=== PATIENT | male | born 1945 | race Caucasian/White ===

== ENCOUNTER → 2016-10-18 | Day surgery (SDC) | payer OTHER, MEDICARE ==
[2016-10-09 09:42] VITALS: BMI 33.0
[~2016-10-18] VITALS: Ht 180.3 cm; Wt 106.8 kg
[~2016-10-18] MED LIST: ATOR-26 PO; ENOX120I SQ; GABA-113 PO; LIDOCAINE HCL 2% 2 ML VIAL (20MG/ML) ONE; LISI10TA PO; PROPOFOL IV EMULSION 10 MG/ML 20 ML VIAL IV ONE; TOPI100T20 PO; TYLOTC500 PO; WARF5TAB7 PO; WARF7.5T PO; [UNRECOGNIZED DRUG - CODE] PO
[2016-10-18 10:31] VITALS: Ht 180.3 cm; Wt 106.8 kg
[2016-10-18 10:34] VITALS: TEMP 36.6
--- NOTE | 2016-10-18 11:33 | Endo History and Physical ---
History & Physical Date of Service: Oct 18, 2016. Chief Complaint: HXOF COLON POLYPS Referring Physician: DR. LEE History of Present Illness History of multiple polyps. Rectal bleeding. Past Medical History Atrial Fibrillation, Diabetes Past Surgical History Hx Cardiac Surgery: Yes (CARDIAC ABLATION X2, CARDIAC CATH, STENT X2) Hx Internal Defibrillator: Yes (PLACED AND REMOVED) Hx Pacemaker: Yes (~10 YEARS AGO) Hx Abdominal Surgery: Yes (DOMINGA) Hx of Implantable Prosthesis: No Hx Post-Op Nausea and Vomiting: No Hx Cancer Surgery: No Hx Thoracic Surgery: No Hx Orthopedic: Yes (L5-S1 LAMINECTOMY, L4-5 HEMILAMINECTOMY, L5-S1 FUSION, LT KNEE SURGERY) Hx Urinary Tract Surgery: No Family History None Social History Smoking Status: Current Some Day Smoker Hx Substance Use: No Hx Alcohol Use: Yes (OCCASIONAL) Allergies Coded Allergies: Iodinated Diagnostic Agents (Verified Allergy, Mild, RASH, 10/09/16) Codeine (Verified Adverse Reaction, Intermediate, N/V, 10/09/16) Morphine (Verified Adverse Reaction, Intermediate, N/V, 10/09/16) Current Medications Reported Home Medications Medications Dose Route/Sig Max Daily Dose Days Date Category Lovenox (Enoxaparin Sodium) 120 Mg/0.8 Ml Inj 120 Mg SQ Q12H 10/18/16 Reported Jantoven (Warfarin Sodium) 5 Mg Tab 5 Mg PO HS 10/09/16 Reported Prinivil (Lisinopril) 10 Mg Tab 10 Mg PO QAM 10/09/16 Reported Neurontin (Gabapentin) 300 Mg Cap 300 Mg PO BID 05/22/14 Reported Tylenol (Acetaminophen) 500 Mg Tab 500-1,000 Mg PO PRN 09/24/13 Reported Topamax (Topiramate) 100 Mg Tab 100 Mg PO BID 04/04/13 Reported Lipitor (Atorvastatin Calcium) 80 Mg Tab 80 Mg PO HS 04/04/13 Reported Sertraline (Sertraline Hcl) 100 Mg Tab 100 Mg PO QAM 09/02/09 Reported Vital Signs Weight (Kilograms): 106.82 Height (Feet): 5 Height (Inches): 11 Date Time Temp Pulse Resp B/P Pulse Ox O2 Delivery O2 Flow Rate FiO2 10/18/16 10:34 36.6 75 18 130/80 97 Room Air Physical Exam General Appearance: WD/WN, no apparent distress Respiratory/Chest: Auscultation: breath sounds normal, no wheezing Cardiovascular: Heart Auscultation: RRR, no murmurs Abdomen: Inspection & Palpation: soft, no tenderness, guarding & rebound Assessment and Plan Colonoscopy today.
--- NOTE | 2016-10-18 12:36 | GI REPORT ---
Procedure Date: 10/18/2016 11:30 AM Procedure: Colonoscopy Indications: High risk colon cancer surveillance: Personal history of colonic polyps Medicines: Monitored Anesthesia Care Complications: No immediate complications. Estimated blood loss: None. Estimated Blood Loss: Estimated blood loss: none. Procedure: Pre-Anesthesia Assessment: - Prior to the procedure, a History and Physical was performed, and patient medications, allergies and sensitivities were reviewed. The patient's tolerance of previous anesthesia was reviewed. - ASA Grade Assessment: III - A patient with severe systemic disease. After I obtained informed consent, the scope was passed under direct vision. Throughout the procedure, the patient's blood pressure, pulse, and oxygen saturations were monitored continuously. The Scope was introduced through the anus and advanced to the terminal ileum, with identification of the appendiceal orifice and IC valve. The colonoscopy was performed without difficulty. The patient tolerated the procedure well. The quality of the bowel preparation was excellent. The bowel preparation used was split dose MIralax. Findings: A 4 mm polyp was found in the ascending colon. The polyp was sessile. The polyp was removed with a cold snare. Resection and retrieval were complete. A 3 mm polyp was found in the transverse colon. The polyp was sessile. The polyp was removed with a cold snare. Resection and retrieval were complete. A 2 mm polyp was found in the sigmoid colon. The polyp was sessile. The polyp was removed with a cold snare. Resection and retrieval were complete. Multiple diverticula were found in the entire colon. Verification of patient identification for the specimens was done by the physician and nurse using the patient's name, date and medical record number. Impression: - One 4 mm polyp in the ascending colon, removed with a cold snare. Resected and retrieved. - One 3 mm polyp in the transverse colon, removed with a cold snare. Resected and retrieved. - One 2 mm polyp in the sigmoid colon, removed with a cold snare. Resected and retrieved. - Diverticulosis in the entire examined colon. Recommendation: - Repeat colonoscopy in 3 years for surveillance based on pathology results. - Discharge patient to home (with escort). Zion Duke M.D. Zion Duke MD 10/18/2016 12:36:21 PM This report has been signed electronically. Note Initiated On: 10/18/2016 11:30 AM I attest to the content of the Intraoperative Record and orders documented therein, exceptions below
--- NOTE | 2016-10-18 12:39 | Discharge Instructions ---
Endoscopy Patient Instructions Date / Procedure(s) Performed Oct 18, 2016. Colonoscopy Allergy Information Coded Allergies: Iodinated Diagnostic Agents (Verified Allergy, Mild, RASH, 10/18/16) Codeine (Verified Adverse Reaction, Intermediate, N/V, 10/18/16) Morphine (Verified Adverse Reaction, Intermediate, N/V, 10/18/16) Discharge Date / Findings Oct 18, 2016. Colon polyps (3), diverticulosis Medication Instructions Stopped Medication(s): COUMADIN Restart Stopped Medication(s): Resume medications as well as anticoagulation today. Provider Instructions Activity Restrictions - No exercising or heavy lifting for 24 hours. - Do not drink alcohol the day of the procedure. - Do not drive a car or operate machinery until the day after the procedure. - Do not make any important decisions or sign important papers in 24 hours after the procedure. Following Day: - Return to full activity which may include returning to work/school. Diet Start your diet with liquids and light foods (jello, soup, juice, toast). Then eat your usual diet if not nauseated. Treatment For Common After Affects For mild abdominal pain, bloating, or excessive gas: - Rest - Eat lightly - Lie on right side Follow-Up Information Follow-up with DR. LEE as scheduled Anesthesia Information What You Should Know You have had a procedure that required some medicine to reduce anxiety and discomfort. This treatment is called moderate sedation. After receiving the treatment, you may be sleepy, but you will be able to breathe on your own. The effects of the treatment may last for several hours. Follow these instructions along with Activity/Diet recommendations noted above: * Do NOT do anything where dizziness or clumsiness would be dangerous. * Rest quietly at home today, then you can be up and about tomorrow. * Have a responsible person stay with you the rest of today. * You may have had an I.V. today. If so, you may take the dressing off later today. Recommendations Call your doctor if: * Trouble breathing * Continuous vomiting for more than 24 hours * Temperature above 101 degrees * Severe abdominal pain or bloating * Pain not relieved by pain medicine ordered * There is increased drainage or redness from any incision * A large amount of rectal bleeding greater than 2-3 tablespoons. (If you had a polyp/s removed or have hemorrhoids, a small amount of blood - from the rectum is to be expected.) * You have any unanswered questions or concerns. IN THE EVENT OF A SERIOUS EMERGENCY, GO TO THE NEAREST EMERGENCY ROOM Your discharge instructions were prepared by provider Zion Duke. Patient Instructions Signature Page Osorio Harmon Patient (or Guardian) Signature/Date: I have read and understand the instructions given to me by my caregivers. Caregiver/RN/Doctor Signature/Date: The above-named patient and/or guardian has received patient instructions on this date. + Original Patient Signature Page (only) stays with chart. Please make copy for patient.
[2016-10-18 12:57] VITALS: BP 138/99; PULSE 75; O2SAT 100
--- NOTE | 2016-10-18 13:04 | Anesthesiology Progress Note ---
Anesthesia Post Op Note Date & Time Oct 18, 2016 at 13:04 Vital Signs Pain Intensity: 0 Vital Signs Past 12 Hours Date Time Temp Pulse Resp B/P Pulse Ox O2 Delivery O2 Flow Rate FiO2 10/18/16 12:57 75 138/99 100 10/18/16 12:56 75 144/97 99 10/18/16 12:42 75 127/92 99 10/18/16 12:27 75 108/60 95 10/18/16 10:34 36.6 75 18 130/80 97 Room Air Notes Mental Status: alert / awake / arousable, participated in evaluation Pt Amnestic to Procedure: Yes Nausea / Vomiting: adequately controlled Pain: adequately controlled Airway Patency, RR, SpO2: stable & adequate BP & HR: stable & adequate Hydration State: stable & adequate Anesthetic Complications: no major complications apparent Patient was instructed to take his lisinopril as soon as he get home. He understands and agrees.
== END | disposition home or self-care (01) ==
LOC: C.GI 10:04
PROVIDERS: ATTEND Internal Medicine Gastroenterology
DX: Z12.11 Encounter for screening for malignant neoplasm of colon (principal); Z86.010 Personal history of colon polyps; D12.2 Benign neoplasm of ascending colon; D12.3 Benign neoplasm of transverse colon; K57.30 Diverticulosis of large intestine without perforation or abscess without bleeding; Z95.5 Presence of coronary angioplasty implant and graft; I48.91 Unspecified atrial fibrillation; F17.210 Nicotine dependence, cigarettes, uncomplicated; Z98.890 Other specified postprocedural states; Z91.041 Radiographic dye allergy status; Z88.5 Allergy status to narcotic agent

== ENCOUNTER 2016-10-24 15:49 | Inpatient (IN) | payer OTHER, MEDICARE ==
[~2016-10-24] VITALS: Ht 179.1 cm; Wt 104.3 kg
[~2016-10-24 15:49] MED LIST changes: -LIDOCAINE HCL 2% 2 ML VIAL (20MG/ML) ONE; -PROPOFOL IV EMULSION 10 MG/ML 20 ML VIAL IV ONE; -WARF7.5T PO
[2016-10-24 17:17] LABS: ISTAT CREATININE 1.2 mg/dl (0.6-1.3); ISTAT IONIZED CALCIUM 1.19 mmol/l (1.12-1.32)
[2016-10-24] MEDS ORDERED: WARF7.5T PO (17:19)
--- NOTE | 2016-10-24 17:39 | EMERGENCY ROOM VISIT NOTE ---
History Report prepared by Soumya: Anna Briones Under the Supervision of: Dr. Jose Thomas D.O. First contact with patient: 16:41 Chief Complaint: RECTAL BLEEDING Stated Complaint: RECTAL BLEEDING- RECENT COLONOSCOPY Nursing Triage Summary: PT VERBALIZES RECTAL BLEEDING FOR "A WHILE", JUST HAD A COLONOSCOPY LAST WEEK, FOUND 3 POLYPS WHICH WERE REMOVED AND CLIPPED. PT HAS HAD AN INCREASE IN BLEEDING SINCE VERBALIZING "IT'S JUST POURING OUT OF ME". PT TALKED TO DR. SIMONS WHO PERFORMED COLONOSCOPY AND WAS TOLD TO COME DIRECTLY TO THE ED. PT DENIES ANY DIZZINESS AT THIS TIME, BUT HAS BEEN INTERMITTENTLY THIS WEEK. 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 The patient states that he had a colonoscopy October 18 (6 days ago) and had 3 polyps removed and clipped. He had some rectal bleeding prior to the colonoscopy, but has worsened since then. The patient spoke with Dr. Simons of GI who performed his colonoscopy and the patient was referred to the ER. The patient is on Coumadin. He was started back on Coumadin the day of the procedure. Since the procedure, he has had episodes where he feels like he has to have a bowel movement, but nothing blood blood comes from his rectum, "like a faucet." He has an episode similar to this once a day. He had an episode this morning with only a small amount of stool with the blood. Prior to the colonoscopy he had about one large episode of rectal bleeding a week. Currently, he complains of some abdominal pain. He currently denies any dizziness. 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 A total of 10 systems reviewed and were otherwise negative. Past Medical & Surgical Medical Problems: (1) Diabetes (2) Heart disease (3) HTN (hypertension) (4) Kidney stone Surgical Problems: (1) Hx of cholecystectomy (2) Stented coronary artery Family History Cancer Diabetes mellitus FHx: gallbladder disease Heart disease Hypertension Lung disease Seizures Social History Smoking Status: Current Every Day Smoker Marital Status: Housing Status: lives with significant other Occupation Status: retired Current/Historical Medications Scheduled Atorvastatin (Lipitor), 80 MG PO HS Gabapentin (Neurontin), 300 MG PO BID Lisinopril (Prinivil), 10 MG PO HS Sertraline Hcl (Sertraline), 100 MG PO QAM Topiramate (Topamax), 100 MG PO BID Warfarin Sodium (Coumadin), 7.5 MG PO DAILY Scheduled PRN Acetaminophen (Tylenol), 500-1,000 MG PO for Pain Allergies Coded Allergies: Iodinated Diagnostic Agents (Verified Allergy, Mild, RASH, 10/24/16) Codeine (Verified Adverse Reaction, Intermediate, N/V, 10/24/16) Morphine (Verified Adverse Reaction, Intermediate, N/V, 10/24/16) Physical Exam Vital Signs Date Time Temp Pulse Resp B/P Pulse Ox O2 Delivery O2 Flow Rate FiO2 10/24/16 17:34 74 16 131/86 97 Room Air 10/24/16 16:03 36.6 76 18 107/70 Room Air Physical Exam CONSTITUTIONAL/VITAL SIGNS: Reviewed / noted above. GENERAL: Non-toxic in appearance. INTEGUMENTARY: Warm, dry, and [place]. HEAD: Normocephalic. EYES: without scleral icterus or trauma. ENT/OROPHARYNX: clear and moist. LYMPHADENOPATHY/NECK: Is supple without lymphadenopathy or meningismus. RESPIRATORY: Lungs clear and equal. CARDIOVASCULAR: Regular rate and rhythm. GI/ABDOMEN: Soft and nontender. No organomegaly or pulsatile mass. No rebound or guarding. Normal bowel sounds. RECTAL: Small amount of gross blood. EXTREMITIES: Warm and well perfused. BACK: No CVA tenderness. NEUROLOGICAL: Intact without focal deficits. PSYCHIATRIC: normal affect. MUSCULOSKELETAL: Normally developed with good muscle tone. Medical Decision & Procedures Laboratory Results Test 10/24/16 16:59 10/24/16 17:03 Bedside Prothrombin Time INR 1.6 (0.9-1.1) Bedside Hemoglobin 15.0 g/dl (14.0-18.0) Bedside Hematocrit 44 % (42-52) Bedside Sodium 144 mEq/L (135-144) Bedside Potassium 4.1 mEq/L (3.3-5.0) Bedside Chloride 109 mEq/L (101-112) Bedside Total CO2 21 mEq/l (24-31) Anion Gap 20.0 mmol/L (16-25) Bedside Blood Urea Nitrogen 22 mg/dl (7-18) Bedside Creatinine 1.2 mg/dl (0.6-1.3) Bedside Glucose (other) 89 mg/dl (70-99) Bedside Ionized Calcium (Ok) 1.19 mmol/l (1.12-1.32) Laboratory results as stated above per my review. ED Course 1644: Previous medical records were reviewed. The patient was evaluated in room C12A. A complete history and physical examination was performed. 1734: On reevaluation, the patient is resting comfortably. I discussed the results and findings with him. He verbalized agreement of the treatment plan. [facility] The patient will be evaluated for further management and care. Medical Decision Differential diagnosis: Etiologies such as diverticulosis, AVM, coagulopathy, colitis, inflammatory bowel disease, malignancy, Ashley-Cohen tear, esophagitis, peptic ulcer disease , variceal bleed, gastritis, epistaxis, fissure, hemorrhoids, as well as others were entertained. This is a 71-year-old male who presents to the ED with a chief complaint of rectal bleeding. The patient states he had a colonoscopy last , 6 days ago. The patient reports daily bleeding from his rectum since that time. He is chronically on Coumadin. He restarted it on . His INR today is 1.6. His hemoglobin is 15. The patient does have gross blood on rectal exam. It is guaiac positive. The patient is hemodynamically stable. He will be observed by the hospitalist service for inpatient evaluation of his GI bleeding. Consults Time Called: 1729 Consulting Physician: Lois [facility] Returned Call: 1734 I spoke with [facility]. The patient will be evaluated for further management and care. Impression Primary Impression: Rectal bleeding Scribe Attestation The scribe's documentation has been prepared under my direction and personally reviewed by me in its entirety. I confirm that the note above accurately reflects all work, treatment, procedures, and medical decision making performed by me. Departure Information Dispostion Being Evaluated By Hospitalist Referrals Danny Alberts M.D. (PCP) Patient Instructions My [facility]
[2016-10-24] MEDS ORDERED: PHYTONADIONE 5 MG TAB PO SCH (18:11)
[2016-10-24] MEDS ORDERED: ONDANSETRON INJ 2 MG/ML 2 ML VIAL IV PRN (18:15)
[2016-10-24] MEDS: SODIUM CHLORIDE 0.9% 1000ML 1,000 ML IV SCH (18:15)
[2016-10-24] MEDS ORDERED: ACETAMINOPHEN 325 MG TAB PO PRN (18:15)
--- NOTE | 2016-10-24 18:30 | History and Physical ---
History & Physical Date & Time of Service: Oct 24, 2016 at 18:01 Chief Complaint: Rectal Bleeding- Recent Colonoscopy Primary Care Physician: Danny Alberts M.D. History of Present Illness Source: patient, family, clinic records, hospital records Patient seen and examined. 71 year old male with PMHx of CAD, Afib on Coumadin, h/o pacemaker, DM2, HLD, CKD stage 3, and DELANO presents to the ED complaining of rectal bleeding x 4 days. Patient reports that he had a routine colonoscopy for cancer prevention 6 days ago. He had a few polyps removed. Since then he reports he has been having rectal bleeding daily. He reports that prior to the procedure he intermittently had rectal bleeding but since the procedure this has been happening daily. He states he feels like he's going to have diarrhea and then it's just blood. He reports dull lower abdominal pain. He denies fevers , chills, URI symptoms, chest pain, SOB, nausea, vomiting, dysuria, calf pain and edema. Denies NSAIDs/Aspirin use. He restarted his Coumadin 6 days ago. In the ED VS are stable, Hgb is 15, INR is 1.6 rectal exam reveals bight red blood. He will be observed for further workup and treatment. Past Medical/Surgical History Medical Problems: (1) Afib Status: Chronic (2) CAD (coronary artery disease) Status: Chronic (3) CKD (chronic kidney disease), stage III Status: Chronic (4) Depression Status: Chronic (5) DM2 (diabetes mellitus, type 2) Status: Chronic (6) Essential tremor Status: Chronic (7) HLD (hyperlipidemia) Status: Chronic (8) HTN (hypertension) Status: Chronic (9) Pacemaker Status: Chronic Surgical Problems: (1) Hx of cholecystectomy Status: Resolved (2) Stented coronary artery Status: Resolved Family History Cancer Diabetes mellitus FHx: gallbladder disease Heart disease Hypertension Lung disease Seizures Social History Smoking Status: Current Every Day Smoker Alcohol Use: occasionally Marital Status: Housing status: lives with family Occupational Status: retired Multi-Drug Resistant Organisms History of MDRO: No Allergies Coded Allergies: Iodinated Diagnostic Agents (Verified Allergy, Mild, RASH, 10/24/16) Codeine (Verified Adverse Reaction, Intermediate, N/V, 10/24/16) Morphine (Verified Adverse Reaction, Intermediate, N/V, 10/24/16) Home Medications Scheduled Atorvastatin (Lipitor), 80 MG PO HS Gabapentin (Neurontin), 300 MG PO TID Lisinopril (Prinivil), 10 MG PO HS Sertraline Hcl (Sertraline), 100 MG PO QAM Topiramate (Topamax), 100 MG PO BID Warfarin Sodium (Coumadin), 7.5 MG PO DAILY Scheduled PRN Acetaminophen (Tylenol), 500-1,000 MG PO for Pain Review of Systems See above for pertinent positives & negatives. A total of 10 systems reviewed and were otherwise negative. Physical Exam Vital Signs Date Time Temp Pulse Resp B/P Pulse Ox O2 Delivery O2 Flow Rate FiO2 10/24/16 17:34 74 16 131/86 97 Room Air 10/24/16 16:03 36.6 76 18 107/70 Room Air General Appearance: + pertinent finding (Pleasant WD/WN 71 year old male lying in bed in NAD with family at bedside ) Head: normocephalic, atraumatic Eyes: PERRL, EOMI, sclerae normal ENT: hearing grossly normal, pharynx normal Neck: supple, no JVD Respiratory/Chest: chest non-tender, lungs clear, normal breath sounds, no respiratory distress, no accessory muscle use Cardiovascular: regular rate, rhythm, no edema, no gallop, no JVD, no murmur, normal peripheral pulses Abdomen/GI: normal bowel sounds, soft, + tenderness (LLQ) Back: normal inspection, no CVA tenderness, no muscle spasm Extremities/Musculoskelatal: no calf tenderness, normal capillary refill, no pedal edema Neurologic/Psych: no motor/sensory deficits, alert, oriented x 3 Skin: normal color, warm/dry, no rash Lymphatic: no adenopathy Diagnostics Laboratory Results Results Past 24 Hours Test 10/24/16 16:59 10/24/16 17:03 10/24/16 17:41 Range/Units Bedside Prothrombin Time INR 1.6 0.9-1.1 Bedside Hemoglobin 15.0 14.0-18.0 g/dl Bedside Hematocrit 44 42-52 % Bedside Sodium 144 135-144 mEq/L Bedside Potassium 4.1 3.3-5.0 mEq/L Bedside Chloride 109 101-112 mEq/L Bedside Total CO2 21 24-31 mEq/l Anion Gap 20.0 16-25 mmol/L Bedside Blood Urea Nitrogen 22 7-18 mg/dl Bedside Creatinine 1.2 0.6-1.3 mg/dl Bedside Glucose (other) 89 70-99 mg/dl Bedside Ionized Calcium (Ok) 1.19 1.12-1.32 mmol/l White Blood Count 6.81 4.8-10.8 K/uL Impression Assessment and Plan 71 year old male presents to the ED complaining of daily rectal bleeding since colonoscopy 6 days ago. Patient is on coumadin. INR 1.6 RECTAL BLEEDING- LLQ abdominal pain -Observation in tele -Hgb 15, INR 1.6, VSS -Colonoscopy with diffuse diverticulosis, polyps. Polyps removed -CT A/P pending to r/o acute diverticulitis - will start Abx if positive -formal CBC to assess platelets -serial H&H -GI consult for further input -IVF hydration, npo -Vitamin K to reserve Coumadin -CBC, PRP, Mg, INR in AM -type and cross 2 units PRBCs ATRIAL FIBRILLATION -INR 1.6 -hold Coumadin -monitor in tele -INR Daily CAD -stable -continue Statin -hold lisinopril to avoid hypotension in setting of GI bleed HTN -stable -hold lisinopril in setting of GI bleed H/O PACEMAKER HLD -continue Statin CKD STAGE 3 -crea stable -follow PRP daily -avoid nephrotoxic agents as able DELANO -intolerant of CPAP DIET CONTROLLED DM2 -BSG 89 DEPRESSION -continue Zoloft ESSENTIAL TREMOR -continue Topiramate DVT PROPHYLAXIS:SCDs RE: GI bleed CODE STATUS: FULL CODE DISPO:observation pending further workup Patient seen in collaboration with Dr. Mauricio ATTENDING ADDENDUM care coordinated with YESSENIA Mcallister please refer to her notes for full details, I agree with her notes patient seen and examined, records reviewed by myself as well on exam, patient seen resting in bed, comfortable denies abdominal pain, nausea/vomiting no chest pain, dyspnea, palpitations, dizziness last episode of hematochezia this AM- large amount no other symptoms VS noted and reviewed oriented x 3 , not in distress, speaks in sentences with no effort nor accessory muscle use normal rate, regular rhythm, no murmurs clear breath sounds bilaterally non distended, soft, mild-moderate tenderness on the LLQ no bipedal edema, erythema, warmth no neuro deficits Hg 13.5 INR 1.6 ASSESSMENT/PLAN> 71 year old male s/p Colonoscopy with Polypectomy 6 days ago, A fib on Coumadin, CAD, s/p Pacemaker placement, CKD 3, presenting with hematochezia x 6 days. LOWER GI BLEED in the setting of Chronic Coumadin Use - s/p Colonoscopy with Polypectomy 6 days ago, also (+) for extensive diverticulosis - discussed with GI SVC Dr. Jerome recommend bowel prep tonight for Colonoscopy in AM - h&h Q6H INR 1.6, Vit K 5mg po one, INR daily - CT abdomen to r/o Acute Diverticulitis CHRONIC A FIB INR 1.6, Vit K 5mg po one, hold coumadin, INR daily other diagnoses and plan of care as per YESSENIA Mcallister's notes Fuad Mauricio MD
[2016-10-24 18:33] LABS: HEMATOCRIT 40.2 % (42-52)
--- NOTE | 2016-10-24 18:45 | DIAGNOSTIC IMAGING REPORT ---
ABDOMEN AND PELVIS CT WITHOUT CONTRAST CT DOSE: 960.53 mGy.cm HISTORY: Pain. Rectal bleeding. LLQ pain, GI bleed TECHNIQUE: Multiaxial CT images of the abdomen and pelvis were performed without contrast. COMPARISON STUDY: None. FINDINGS: Lung bases are clear. Liver spleen and pancreas appear unremarkable. Kidneys negative for hydronephrosis. Bowel pattern is nonobstructive. The appendix is normal. Bladder is midline. There are no contained calcifications. Pelvic and inguinal regions are unremarkable. Postoperative changes to the lumbar spine present. IMPRESSION: No acute process of the abdomen or pelvis. Electronically signed by: Edgar Montelongo M.D. 10/24/2016 6:44 PM Dictated Date/Time: 10/24/2016 6:42 PM
[2016-10-24 19:14] LABS: MEAN PLATELET VOLUME 12.1 fL (7.4-10.4); PLATELET COUNT 155 K/uL (130-400); RED BLOOD COUNT 4.62 M/uL (4.7-6.1); WHITE BLOOD COUNT 7.31 K/uL (4.8-10.8)
[2016-10-24] MEDS ORDERED: IV FLUIDS COMPLETED PRN (19:15)
[2016-10-24 19:34] LABS: MEAN CORPUSCULAR HGB CONC 33.6 g/dl (32-36)
[2016-10-24 19:45] VITALS: BP 143/87; PULSE 77; TEMP 36.5; O2SAT 98; Ht 179.1 cm; Wt 104.3 kg
[2016-10-24] MEDS ORDERED: LAVAGE SOLUTION 4000ML PO SCH (20:00)
[2016-10-24] MEDS ORDERED: LISINOPRIL 10 MG TAB PO SCH (21:00)
[2016-10-24] MEDS: TOPIRAMATE 100 MG TAB PO SCH (21:00)
[2016-10-24] MEDS: ATORVASTATIN 40 MG TAB PO SCH (21:00)
[2016-10-24] MEDS: GABAPENTIN 300 MG CAP PO SCH (21:00)
[2016-10-24 23:21] VITALS: BP 131/81; PULSE 75; TEMP 37; O2SAT 98
[2016-10-24 23:56] LABS: HEMATOCRIT 39.9 % (42-52)
[2016-10-25] VITALS (8 sets, daily range): BP systolic 123–152; BP diastolic 78–93; PULSE 75–77; TEMP 36.5–36.7; O2SAT 96–98
[2016-10-25] MEDS ORDERED: NITROGLYCERIN 0.4 MG SL PER TAB CHARGE SL STA (02:42)
[2016-10-25] MEDS ORDERED: TRAMADOL HCL 50 MG TAB PO PRN (02:45)
[2016-10-25] MEDS ORDERED: NITROGLYCERIN 0.4 MG SL PER TAB CHARGE SL PRN (02:45)
[2016-10-25] MEDS ORDERED: HYDROmorphone INJ 0.5 MG/0.5 ML SYR IV PRN (02:45)
[2016-10-25] MEDS ORDERED: NITROGLYCERIN 0.4 MG SL PER TAB CHARGE ONE (02:50)
[2016-10-25 03:13] LABS: HEMATOCRIT 38.2 % (42-52); MEAN CELL VOLUME 87.8 fL (80-100); MEAN CORPUSCULAR HEMOGLOBIN 29.7 pg (25-34); MEAN CORPUSCULAR HGB CONC 33.8 g/dl (32-36); PLATELET COUNT 140 K/uL (130-400); RED BLOOD COUNT 4.35 M/uL (4.7-6.1); WHITE BLOOD COUNT 6.97 K/uL (4.8-10.8)
[2016-10-25 03:23] LABS: INR 1.4 (0.9-1.1); PARTIAL THROMBOPLASTIN RATIO 1.2; PROTHROMBIN TIME (PATIENT) 15.7 SECONDS (9.0-12.0)
[2016-10-25 03:38] LABS: ALT/SGPT 34 U/L (12-78); AST/SGOT 14 U/L (15-37); BLOOD UREA NITROGEN 18 mg/dl (7-18); BUN/CREATININE RATIO 15.2 (10-20); CALCIUM 7.8 mg/dl (8.5-10.1); CARBON DIOXIDE 23 mmol/L (21-32); CHLORIDE 114 mmol/L (98-107); GLUCOSE 88 mg/dl (70-99); POTASSIUM 3.9 mmol/L (3.5-5.1); SODIUM 145 mmol/L (136-145)
[2016-10-25 03:39] LABS: BASO ABS # 0.06 K/uL (0-0.2); BASOPHIL % 0.9 % (0-2); COMPLETE YES; EOSINOPHIL % 3.5 %; LYMPH ABS # 1.33 K/uL (1.2-3.4); LYMPHOCYTE % 19.1 %; META ABS # 0.06 K/uL (0-0); METAMYELOCYTE % 0.9 %; NEUTROPHILS % 67.8 %
[2016-10-25 03:44] LABS: ALB/GLOB RATIO 1.1 (0.9-2); ALKALINE PHOSPHATASE 61 U/L (45-117)
--- NOTE | 2016-10-25 06:36 | DIAGNOSTIC IMAGING REPORT ---
CHEST ONE VIEW PORTABLE CLINICAL HISTORY: Atypical chest pain COMPARISON STUDY: 05/23/2014 FINDINGS: The heart is mildly enlarged. There is a left subclavian pacer/defibrillator present. There is no failure. There is no focal pulmonary consolidation. No pleural effusions are visualized.[ IMPRESSION: No active disease in the chest. Electronically signed by: Angel Bell M.D. 10/25/2016 6:35 AM Dictated Date/Time: 10/25/2016 6:34 AM
[2016-10-25] MEDS: GABAPENTIN 300 MG CAP PO SCH ×3 (07:40→21:17)
[2016-10-25] MEDS: TOPIRAMATE 100 MG TAB PO SCH ×2 (07:40→21:17)
[2016-10-25] MEDS: SODIUM CHLORIDE 0.9% 1000ML 1,000 ML IV SCH (07:41)
[2016-10-25] MEDS: SERTRALINE HCL 100 MG TAB PO SCH (07:41)
--- NOTE | 2016-10-25 09:04 | Gastrointestinal Consultation ---
Gastrointestinal Consultation Date of Consultation: Oct 25, 2016 Consulting Physician: Consuelo Reason for Consultation: post-polypectomy bleed History of Present Illness Patient is a 71 year old male with past medical history significant for DMT2, HTN, CAD, AFIB on coumadin, s/p pacemaker, CKD-3, depression . He presents to the ED today at the request of GI after BRBPR following a colonoscopy. He was getting a colonoscopy for colon cancer screening with a history of intermittent BRBPR on Coumadin. Since his procedure, he has been having BRBPR. Reports urge to defecate up to 2 times daily and this is just blood, no stool. Reports that the blood runs like a faucet. No abdominal pain. No rectal pain. No clots in blood. No black stools. He denies any other symptoms, no chest pain, SOB, lightheadedness or dizziness. No episode or BRBPR since he has been admitted. He was supposed to be prepped overnight for a colonoscopy on 10/25/16 but this was not done. Colonoscopy 10/18/16: A 4 mm polyp was found in the ascending colon. The polyp was sessile. The polyp was removed with a cold snare. Resection and retrieval were complete. A 3 mm polyp was found in the transverse colon. The polyp was sessile. The polyp was removed with a cold snare. Resection and retrieval were complete. A 2 mm polyp was found in the sigmoid colon. The polyp was sessile. The polyp was removed with a cold snare. Resection and retrieval were complete. Multiple diverticula were found in the entire colon. CT abd 10/24/16: Lung bases are clear. Liver spleen and pancreas appear unremarkable. Kidneys negative for hydronephrosis. Bowel pattern is nonobstructive. The appendix is normal. Bladder is midline. There are no contained calcifications. Pelvic and inguinal regions are unremarkable. Postoperative changes to the lumbar spine present. Past Medical/Surgical History Medical Problems: (1) Rectal bleeding Status: Acute Family History Cancer Diabetes mellitus FHx: gallbladder disease Heart disease Hypertension Lung disease Seizures Social History Smoking Status: Light Tobacco Smoker Marital Status: Housing Status: lives with significant other Occupation Status: retired Allergies Coded Allergies: Iodinated Diagnostic Agents (Verified Allergy, Mild, RASH, 10/24/16) Codeine (Verified Adverse Reaction, Intermediate, N/V, 10/24/16) Morphine (Verified Adverse Reaction, Intermediate, N/V, 10/24/16) Current Medications Home Meds and Scripts Medications Dose Route/Sig Max Daily Dose Days Date Category Coumadin (Warfarin Sodium) 7.5 Mg Tab 7.5 Mg PO DAILY 10/24/16 Reported Prinivil (Lisinopril) 10 Mg Tab 10 Mg PO HS 10/09/16 Reported Neurontin (Gabapentin) 300 Mg Cap 300 Mg PO TID 05/22/14 Reported Tylenol (Acetaminophen) 500 Mg Tab 500-1,000 Mg PO PRN 09/24/13 Reported Topamax (Topiramate) 100 Mg Tab 100 Mg PO BID 04/04/13 Reported Lipitor (Atorvastatin Calcium) 80 Mg Tab 80 Mg PO HS 04/04/13 Reported Sertraline (Sertraline Hcl) 100 Mg Tab 100 Mg PO QAM 09/02/09 Reported Review of Systems Constitutional: No chills, No fever Respiratory: No cough, No shortness of breath Cardiac: No chest pain, No edema Abdomen: + GI bleeding (BRBPR, minimal stool), No diarrhea, No nausea, No pain , No vomiting Physical Exam Date Time Temp Pulse Resp B/P Pulse Ox O2 Delivery O2 Flow Rate FiO2 10/25/16 08:00 Room Air 10/25/16 07:01 36.5 75 20 123/78 98 Room Air 10/25/16 04:44 98 Room Air 10/25/16 03:56 36.7 76 18 128/80 96 Room Air 10/25/16 00:06 98 Room Air 10/24/16 23:21 37.0 75 18 131/81 98 Room Air 10/24/16 19:45 36.5 77 20 143/87 98 Room Air 10/24/16 17:34 74 16 131/86 97 Room Air 10/24/16 16:03 36.6 76 18 107/70 Room Air General Appearance: no apparent distress Eyes: PERRL ENT: hearing grossly normal Neck: supple, trachea midline Respiratory/Chest: lungs clear, normal breath sounds, no respiratory distress, no accessory muscle use Cardiovascular: regular rate, rhythm, no murmur Abdomen: normal bowel sounds, non tender, soft, no organomegaly Neurologic/Psych: alert, normal mood/affect, oriented x 3 Skin: normal color, no jaundice, warm/dry Laboratory Results Last 24 Hours Test 10/24/16 16:59 10/24/16 17:03 10/24/16 17:41 10/24/16 18:12 Bedside Prothrombin Time INR 1.6 Bedside Hemoglobin 15.0 g/dl Bedside Hematocrit 44 % Bedside Sodium 144 mEq/L Bedside Potassium 4.1 mEq/L Bedside Chloride 109 mEq/L Bedside Total CO2 21 mEq/l Anion Gap 20.0 mmol/L Bedside Blood Urea Nitrogen 22 mg/dl Bedside Creatinine 1.2 mg/dl Bedside Glucose (other) 89 mg/dl Bedside Ionized Calcium (Ok) 1.19 mmol/l White Blood Count 6.81 K/uL 7.31 K/uL Red Blood Count 4.62 M/uL Hemoglobin 13.5 g/dL Hematocrit 40.2 % Mean Corpuscular Volume 88.0 fL Mean Corpuscular Hemoglobin 29.0 pg Mean Corpuscular Hemoglobin Concent 33.6 g/dl RDW Standard Deviation 44.8 fL RDW Coefficient of Variation 13.8 % Platelet Count 155 K/uL Mean Platelet Volume 12.1 fL Test 10/24/16 23:40 10/25/16 03:05 Hemoglobin 13.4 g/dL 12.9 g/dL Hematocrit 39.9 % 38.2 % White Blood Count 6.97 K/uL Red Blood Count 4.35 M/uL Mean Corpuscular Volume 87.8 fL Mean Corpuscular Hemoglobin 29.7 pg Mean Corpuscular Hemoglobin Concent 33.8 g/dl Platelet Count 140 K/uL Mean Platelet Volume 11.0 fL RDW Standard Deviation 43.9 fL RDW Coefficient of Variation 13.5 % Neutrophils % (Manual) 67.8 % Lymphocytes % (Manual) 19.1 % Monocytes % (Manual) 7.8 % Eosinophils % (Manual) 3.5 % Basophils % (Manual) 0.9 % Metamyelocytes % 0.9 % Neutrophils # (Manual) 4.73 K/uL Total Absolute Neutrophils 4.73 K/uL Lymphocytes # (Manual) 1.33 K/uL Total Absolute Lymphocytes 1.33 K/uL Monocytes # (Manual) 0.54 K/uL Eosinophils # (Manual) 0.24 K/uL Basophils # (Manual) 0.06 K/uL Metamyelocytes # 0.06 K/uL Red Blood Cell Morphology Unremarkable Prothrombin Time 15.7 SECONDS Prothromb Time International Ratio 1.4 Activated Partial Thromboplast Time 30.8 SECONDS Partial Thromboplastin Ratio 1.2 Sodium Level 145 mmol/L Potassium Level 3.9 mmol/L Chloride Level 114 mmol/L Carbon Dioxide Level 23 mmol/L Anion Gap 8.0 mmol/L Blood Urea Nitrogen 18 mg/dl Creatinine 1.20 mg/dl Est Creatinine Clear Calc Drug Dose 70.4 ml/min Estimated GFR () 70.6 Estimated GFR (Non- 60.9 BUN/Creatinine Ratio 15.2 Random Glucose 88 mg/dl Calcium Level 7.8 mg/dl Magnesium Level 2.0 mg/dl Total Bilirubin 0.5 mg/dl Aspartate Amino Transf (AST/SGOT) 14 U/L Alanine Aminotransferase (ALT/SGPT) 34 U/L Alkaline Phosphatase 61 U/L Troponin I < 0.015 ng/ml Total Protein 6.2 gm/dl Albumin 3.3 gm/dl Globulin 2.9 gm/dl Albumin/Globulin Ratio 1.1 Lipase 127 U/L Impression Patient is a 71 year old male with daily episodes of BRBPR following colonoscopy on 10/18/16 after having numerous polyps removed. Differentials include diverticular bleed and post-polypectomy bleed Plan Full liquid this morning. Clears after 10am. 4L golytely prep. NPO after midnight. Colonoscopy 10/26/16. I have seen and examined the patient with Racheal Huff on 10/25 whose note reflect our findings and plan. Recent colonoscopy. Will repeat colo to r/ o post-polypectomy bleed, though polyps removed were quite small. He is on Coumadin.
[2016-10-25] MEDS ORDERED: LAVAGE SOLUTION 4000ML PO SCH (17:00)
[2016-10-25] MEDS ORDERED: BISACODYL 5 MG TABEC PO ONE (17:00)
--- NOTE | 2016-10-25 18:08 | Progress Note ---
Internal Med Progress Note Date of Service: Oct 25, 2016. Provider Documentation: SUBJECTIVE: resting comfortably no more episodes of bleeding no nausea or abdominal pain awaiting colonoscopy in am OBJECTIVE: Vital Signs-as noted below Exam: General-alert and oriented x 3 Not in distress ENT-normal hearing Neck-no neck masses Lungs-cta b/l no wheezing no crackles Heart-s1 and s2 heard regular rate and rhythm no murmurs' Abdomen-soft bowel sounds present non tender no distension Extremities-no edema no erythema Neuro-alert and awake moves extremities Lab data as noted below. ASSESSMENT & PLAN: 71 year old male presents to the ED complaining of daily rectal bleeding since colonoscopy 6 days ago. Patient is on coumadin. INR 1.6 RECTAL BLEEDING- LLQ abdominal pain recently had polypectomy no more episodes hb stable ct abd/pelvis unremarkable hemodynamics stable plan for colonoscopy [facility] ATRIAL FIBRILLATION INR 1.6 on presentation and 1.4 today Coumadin on hold will monitor INR Daily CAD asymptomatic on statin HTN stable holding lisinopril in setting of GI bleed H/O PACEMAKER HLD On Statin CKD STAGE 3 cr stable AT 1.2 WILL F/U LABS [facility] intolerant of CPAP DIET CONTROLLED DM2 stable DEPRESSION on Zoloft ESSENTIAL TREMOR On Topiramate DVT PROPHYLAXIS:SCDs RE: GI bleed CODE STATUS: FULL CODE DISPOSITION monitor in tele if stable possible d/c in am Vital Signs: Date Time Temp Pulse Resp B/P Pulse Ox O2 Delivery O2 Flow Rate FiO2 10/25/16 16:08 36.5 77 20 139/90 97 Room Air 10/25/16 15:39 Room Air 10/25/16 12:00 Room Air 10/25/16 11:30 36.6 75 20 145/88 96 Room Air 10/25/16 08:00 Room Air 10/25/16 07:01 36.5 75 20 123/78 98 Room Air 10/25/16 04:44 98 Room Air 10/25/16 03:56 36.7 76 18 128/80 96 Room Air 10/25/16 00:06 98 Room Air 10/24/16 23:21 37.0 75 18 131/81 98 Room Air 10/24/16 19:45 36.5 77 20 143/87 98 Room Air Lab Results: Results Past 24 Hours Test 10/24/16 18:12 10/24/16 23:40 10/25/16 03:05 10/25/16 11:41 Range/Units White Blood Count 7.31 6.97 4.8-10.8 K/uL Red Blood Count 4.62 4.35 4.7-6.1 M/uL Hemoglobin 13.5 13.4 12.9 14.1 14.0-18.0 g/dL Hematocrit 40.2 39.9 38.2 42.0 42-52 % Mean Corpuscular Volume 88.0 87.8 80-100 fL Mean Corpuscular Hemoglobin 29.0 29.7 25-34 pg Mean Corpuscular Hemoglobin Concent 33.6 33.8 32-36 g/dl RDW Standard Deviation 44.8 43.9 36.4-46.3 fL RDW Coefficient of Variation 13.8 13.5 11.5-14.5 % Platelet Count 155 140 130-400 K/uL Mean Platelet Volume 12.1 11.0 7.4-10.4 fL Neutrophils % (Manual) 67.8 % Lymphocytes % (Manual) 19.1 % Monocytes % (Manual) 7.8 % Eosinophils % (Manual) 3.5 % Basophils % (Manual) 0.9 0-2 % Metamyelocytes % 0.9 % Neutrophils # (Manual) 4.73 1.4-6.5 K/uL Total Absolute Neutrophils 4.73 1.4-6.5 K/uL Lymphocytes # (Manual) 1.33 1.2-3.4 K/uL Total Absolute Lymphocytes 1.33 1.2-3.4 K/uL Monocytes # (Manual) 0.54 0.11-0.59 K/uL Eosinophils # (Manual) 0.24 0-0.5 K/uL Basophils # (Manual) 0.06 0-0.2 K/uL Metamyelocytes # 0.06 0-0 K/uL Red Blood Cell Morphology Unremarkable Prothrombin Time 15.7 9.0-12.0 SECONDS Prothromb Time International Ratio 1.4 0.9-1.1 Activated Partial Thromboplast Time 30.8 21.0-31.0 SECONDS Partial Thromboplastin Ratio 1.2 Sodium Level 145 136-145 mmol/L Potassium Level 3.9 3.5-5.1 mmol/L Chloride Level 114 98-107 mmol/L Carbon Dioxide Level 23 21-32 mmol/L Anion Gap 8.0 3-11 mmol/L Blood Urea Nitrogen 18 7-18 mg/dl Creatinine 1.20 0.60-1.40 mg/dl Est Creatinine Clear Calc Drug Dose 70.4 ml/min Estimated GFR () 70.6 Estimated GFR (Non- 60.9 BUN/Creatinine Ratio 15.2 10-20 Random Glucose 88 70-99 mg/dl Calcium Level 7.8 8.5-10.1 mg/dl Magnesium Level 2.0 1.8-2.4 mg/dl Total Bilirubin 0.5 0.2-1 mg/dl Aspartate Amino Transf (AST/SGOT) 14 15-37 U/L Alanine Aminotransferase (ALT/SGPT) 34 12-78 U/L Alkaline Phosphatase 61 45-117 U/L Troponin I < 0.015 < 0.015 0-0.045 ng/ml Total Protein 6.2 6.4-8.2 gm/dl Albumin 3.3 3.4-5.0 gm/dl Globulin 2.9 2.5-4.0 gm/dl Albumin/Globulin Ratio 1.1 0.9-2 Lipase 127 73-393 U/L
[2016-10-25] MEDS ORDERED: NURSING VERBAL MED ORDER ONE (18:30)
[2016-10-25] MEDS: ATORVASTATIN 40 MG TAB PO SCH (21:17)
[2016-10-26] VITALS (9 sets, daily range): BP systolic 119–146; BP diastolic 73–81; PULSE 71–97; TEMP 36.4–36.7; O2SAT 94–98
[2016-10-26] MEDS: GABAPENTIN 300 MG CAP PO SCH ×2 (07:43→13:19)
[2016-10-26] MEDS: TOPIRAMATE 100 MG TAB PO SCH (07:43)
[2016-10-26] MEDS: ATORVASTATIN 40 MG TAB PO SCH (07:43)
[2016-10-26] MEDS: SERTRALINE HCL 100 MG TAB PO SCH (07:45)
[2016-10-26 09:56] LABS: BASO % 0.3 %; BASO ABS # 0.02 K/uL (0-0.2); COMPLETE YES; EOS % 1.2 %; HEMATOCRIT 41.4 % (42-52); IG% 0.9 %; LYMPH % 14.1 %; LYMPH ABS # 0.94 K/uL (1.2-3.4); MEAN CELL VOLUME 87.9 fL (80-100); MEAN CORPUSCULAR HEMOGLOBIN 29.5 pg (25-34); MEAN CORPUSCULAR HGB CONC 33.6 g/dl (32-36); MEAN PLATELET VOLUME 11.5 fL (7.4-10.4); MONO % 11.4 %; NEUT % 72.1 %; PLATELET COUNT 150 K/uL (130-400); RED BLOOD COUNT 4.71 M/uL (4.7-6.1); WHITE BLOOD COUNT 6.65 K/uL (4.8-10.8)
[2016-10-26 10:27] LABS: BUN/CREATININE RATIO 15.5 (10-20); CALCIUM 8.6 mg/dl (8.5-10.1); CREATININE 1.1 mg/dl (0.60-1.40); MAGNESIUM 2.3 mg/dl (1.8-2.4); POTASSIUM 3.8 mmol/L (3.5-5.1)
--- NOTE | 2016-10-26 11:13 | GI REPORT ---
Procedure Date: 10/26/2016 10:45 AM Procedure: Colonoscopy Indications: Rectal bleeding Medicines: See the Anesthesia note for documentation of the administered medications Complications: No immediate complications. Estimated blood loss: None. Estimated Blood Loss: Estimated blood loss: none. Procedure: Pre-Anesthesia Assessment: - Prior to the procedure, a History and Physical was performed, and patient medications, allergies and sensitivities were reviewed. The patient's tolerance of previous anesthesia was reviewed. - The risks and benefits of the procedure and the sedation options and risks were discussed with the patient. All questions were answered and informed consent was obtained. - Patient identification and proposed procedure were verified prior to the procedure by the physician and the nurse. The procedure was verified in the pre-procedure area in the procedure room. - Mental Status Examination: alert and oriented. Airway Examination: normal oropharyngeal airway and neck mobility. Respiratory Examination: clear to auscultation. CV Examination: normal. Abdominal Examination: bowel sounds present, abdomen soft and non-tender, no masses or organomegaly noted. - ASA Grade Assessment: III - A patient with severe systemic disease. After I obtained informed consent, the scope was passed under direct vision. Throughout the procedure, the patient's blood pressure, pulse, and oxygen saturations were monitored continuously. The scope was introduced through the anus and advanced to the terminal ileum. The colonoscopy was performed without difficulty. The patient tolerated the procedure well. The quality of the bowel preparation was good. Findings: The perianal and digital rectal examinations were normal. Pertinent negatives include normal sphincter tone and no palpable rectal lesions. The terminal ileum appeared normal. A small amount of liquid stool was found in the entire colon. A few small-mouthed diverticula were found in the sigmoid colon. Internal hemorrhoids were found during retroflexion. The hemorrhoids were medium-sized and Grade I (internal hemorrhoids that do not prolapse). Impression: - The examined portion of the ileum was normal. - Green liquid stool. No fresh or altered blood. No stigmata of bleeding. - Diverticulosis in the sigmoid colon. - Internal hemorrhoids. This is presumably the cause of the patient's rectal bleeding. Reports this was occurring een prior to his colonoscopy on 10/18. Recommendation: - Return patient to [facility] for possible discharge same day. - OK to resume anticoagulation. - Repeat colonoscopy for surveillance per . Nieves T. Suvock, D.Elis Cordero DO 10/26/2016 11:12:35 AM This report has been signed electronically. Note Initiated On: 10/26/2016 10:45 AM I attest to the content of the Intraoperative Record and orders documented therein, exceptions below
--- NOTE | 2016-10-26 11:36 | Anesthesiology Progress Note ---
Anesthesia Post Op Note Date & Time Oct 26, 2016 at 11:36 Vital Signs Pain Intensity: 0 Vital Signs Past 12 Hours Date Time Temp Pulse Resp B/P Pulse Ox O2 Delivery O2 Flow Rate FiO2 10/26/16 11:14 75 20 102/ 96 Room Air 10/26/16 10:31 36.4 78 18 133/78 95 Room Air 10/26/16 08:00 Room Air 10/26/16 07:53 36.4 74 18 146/79 98 Room Air 10/26/16 05:00 97 Room Air 10/26/16 04:23 36.6 75 18 119/74 97 Room Air 10/26/16 00:08 36.7 71 18 125/77 95 Room Air 10/26/16 00:00 95 Room Air Notes Mental Status: alert / awake / arousable, participated in evaluation Pt Amnestic to Procedure: Yes Nausea / Vomiting: adequately controlled Pain: adequately controlled Airway Patency, RR, SpO2: stable & adequate BP & HR: stable & adequate Hydration State: stable & adequate Anesthetic Complications: no major complications apparent Pt doing well.
--- NOTE | 2016-10-26 15:39 | Discharge Instructions ---
Discharge Instructions Date of Service Oct 26, 2016. Admission Reason for Admission: Rectal Bleeding Discharge Discharge Diagnosis / Problem: RECTAL BLEEDING Discharge Goals Goal(s): Decrease discomfort, Improve function Activity Recommendations Activity Limitations: resume your previous activity . Instructions / Follow-Up Instructions / Follow-Up FOLLOWUP WITH FAMILY DOCTOR ON October AT 11:10AM FOLLOWUP WITH COU[facility]ADIN CLINIC FOR COUMADIN DOSING Current Hospital Diet Patient's current hospital diet: Diabetes Type 2 Diet, Clear Liquid Diet Discharge Diet Recommended Diet: AHA Diet (Heart Healthy) Procedures Procedures Performed: Colonoscopy Pending Studies Studies pending at discharge: no Medical Emergencies . Who to Call and When: Medical Emergencies: If at any time you feel your situation is an emergency, please call 911 immediately. . Non-Emergent Contact Non-Emergency issues call your: Primary Care Provider . . "Provider Documentation" section prepared by Paulie Bishop. VTE Core Measure Inpt VTE Proph given/why not?: SCD's
--- NOTE | 2016-10-26 19:13 | Progress Note ---
Internal Med Progress Note Date of Service: Oct 26, 2016. Provider Documentation: SUBJECTIVE: resting comfortably had some blood clots with colonoscopy prep no nausea or abdominal pain s/ colonoscopy and was unremarkable ok for discharge OBJECTIVE: Vital Signs-as noted below Exam: General-alert and oriented x 3 Not in distress ENT-normal hearing Neck-no neck masses Lungs-cta b/l no wheezing no crackles Heart-s1 and s2 heard regular rate and rhythm no murmurs' Abdomen-soft bowel sounds present non tender no distension Extremities-no edema no erythema Neuro-alert and awake moves extremities Lab data as noted below. ASSESSMENT & PLAN: 71 year old male presents to the ED complaining of daily rectal bleeding since colonoscopy 6 days ago. Patient is on coumadin. INR 1.6 RECTAL BLEEDING- LLQ abdominal pain recently had polypectomy no more episodes hb stable ct abd/pelvis unremarkable hemodynamics stable s/p colonoscopy today 10/26/16 and was unremarkable except for internal hemorrhoids and was thought to be cause for bleeding Gi ok to resume Coumadin ATRIAL FIBRILLATION INR 1.6 on presentation and 1.4 today Coumadin on hold Coumadin restarted at duischarge f/u with Coumadin Clinic CAD asymptomatic on statin HTN stable f/u with pcp. H/O PACEMAKER HLD On Statin CKD STAGE 3 cr stable AT 1.2 WILL F/U LABS [facility] intolerant of CPAP DIET CONTROLLED DM2 stable DEPRESSION on Zoloft ESSENTIAL TREMOR On Topiramate Discharged home Vital Signs: Date Time Temp Pulse Resp B/P Pulse Ox O2 Delivery O2 Flow Rate FiO2 10/26/16 16:00 Room Air 10/26/16 15:45 36.6 75 16 98 Room Air 10/26/16 15:34 36.6 75 16 136/78 98 Room Air 10/26/16 12:08 36.6 97 18 132/73 94 Room Air 10/26/16 12:00 Room Air 10/26/16 11:50 36.4 76 18 145/81 98 Room Air 10/26/16 11:30 75 20 137/75 95 Room Air 10/26/16 11:14 75 20 102/ 96 Room Air 10/26/16 10:31 36.4 78 18 133/78 95 Room Air 10/26/16 08:00 Room Air 10/26/16 07:53 36.4 74 18 146/79 98 Room Air 10/26/16 05:00 97 Room Air 10/26/16 04:23 36.6 75 18 119/74 97 Room Air 10/26/16 00:08 36.7 71 18 125/77 95 Room Air 10/26/16 00:00 95 Room Air 10/25/16 20:00 97 Room Air 10/25/16 19:59 36.6 75 18 152/93 97 Room Air Lab Results: Results Past 24 Hours Test 10/26/16 09:43 Range/Units White Blood Count 6.65 4.8-10.8 K/uL Red Blood Count 4.71 4.7-6.1 M/uL Hemoglobin 13.9 14.0-18.0 g/dL Hematocrit 41.4 42-52 % Mean Corpuscular Volume 87.9 80-100 fL Mean Corpuscular Hemoglobin 29.5 25-34 pg Mean Corpuscular Hemoglobin Concent 33.6 32-36 g/dl Platelet Count 150 130-400 K/uL Mean Platelet Volume 11.5 7.4-10.4 fL Neutrophils (%) (Auto) 72.1 % Lymphocytes (%) (Auto) 14.1 % Monocytes (%) (Auto) 11.4 % Eosinophils (%) (Auto) 1.2 % Basophils (%) (Auto) 0.3 % Neutrophils # (Auto) 4.79 1.4-6.5 K/uL Lymphocytes # (Auto) 0.94 1.2-3.4 K/uL Monocytes # (Auto) 0.76 0.11-0.59 K/uL Eosinophils # (Auto) 0.08 0-0.5 K/uL Basophils # (Auto) 0.02 0-0.2 K/uL RDW Standard Deviation 44.0 36.4-46.3 fL RDW Coefficient of Variation 13.5 11.5-14.5 % Immature Granulocyte % (Auto) 0.9 % Immature Granulocyte # (Auto) 0.06 0.00-0.02 K/uL Sodium Level 142 136-145 mmol/L Potassium Level 3.8 3.5-5.1 mmol/L Chloride Level 111 98-107 mmol/L Carbon Dioxide Level 22 21-32 mmol/L Anion Gap 9.0 3-11 mmol/L Blood Urea Nitrogen 17 7-18 mg/dl Creatinine 1.10 0.60-1.40 mg/dl Est Creatinine Clear Calc Drug Dose 76.2 ml/min Estimated GFR () 78.4 Estimated GFR (Non- 67.7 BUN/Creatinine Ratio 15.5 10-20 Random Glucose 109 70-99 mg/dl Calcium Level 8.6 8.5-10.1 mg/dl Magnesium Level 2.3 1.8-2.4 mg/dl
--- NOTE | 2016-10-26 19:30 | Discharge Summary ---
Discharge Summary Date of Service Oct 26, 2016. Discharge Summary Admission Date: Oct 25, 2016 at 15:56 Discharge Date: Oct 26, 2016 Discharge Disposition: Home Principal Diagnosis: RECTAL BLEEDING Secondary Diagnoses/Problems: (1) Afib Status: Chronic (2) CAD (coronary artery disease) Status: Chronic (3) CKD (chronic kidney disease), stage III Status: Chronic (4) Depression Status: Chronic (5) DM2 (diabetes mellitus, type 2) Status: Chronic (6) Essential tremor Status: Chronic (7) HLD (hyperlipidemia) Status: Chronic (8) HTN (hypertension) Status: Chronic (9) Pacemaker Status: Chronic Procedures: CT ABD/PELVIS: No acute process of the abdomen or pelvis. S/P COLONOSCOPY Consultations: GI Medication Reconciliation Continued Medications: Acetaminophen (Tylenol) 500 Mg Tab 500-1000 MG PO PRN for Pain, TAB Atorvastatin (Lipitor) 80 Mg Tab 80 MG PO HS, TAB Gabapentin (Neurontin) 300 Mg Cap 300 MG PO TID Lisinopril (Prinivil) 10 Mg Tab 10 MG PO HS Sertraline Hcl (Sertraline) 100 Mg Tab 100 MG PO QAM Topiramate (Topamax) 100 Mg Tab 100 MG PO BID, TAB Warfarin Sodium (Coumadin) 7.5 Mg Tab 7.5 MG PO DAILY, TAB Admission Information HPI (per Admitting provider): Patient seen and examined. 71 year old male with PMHx of CAD, Afib on Coumadin, h/o pacemaker, DM2, HLD, CKD stage 3, and DELANO presents to the ED complaining of rectal bleeding x 4 days. Patient reports that he had a routine colonoscopy for cancer prevention 6 days ago. He had a few polyps removed. Since then he reports he has been having rectal bleeding daily. He reports that prior to the procedure he intermittently had rectal bleeding but since the procedure this has been happening daily. He states he feels like he's going to have diarrhea and then it's just blood. He reports dull lower abdominal pain. He denies fevers , chills, URI symptoms, chest pain, SOB, nausea, vomiting, dysuria, calf pain and edema. Denies NSAIDs/Aspirin use. He restarted his Coumadin 6 days ago. In the ED VS are stable, Hgb is 15, INR is 1.6 rectal exam reveals bight red blood. He will be observed for further workup and treatment. Physical Exam (per Admitting): General Appearance: + pertinent finding (Pleasant WD/WN 71 year old male lying in bed in NAD with family at bedside ) Head: normocephalic, atraumatic Eyes: PERRL, EOMI, sclerae normal ENT: hearing grossly normal, pharynx normal Neck: supple, no JVD Respiratory/Chest: chest non-tender, lungs clear, normal breath sounds, no respiratory distress, no accessory muscle use Cardiovascular: regular rate, rhythm, no edema, no gallop, no JVD, no murmur , normal peripheral pulses Abdomen/GI: normal bowel sounds, soft, + tenderness (LLQ) Back: normal inspection, no CVA tenderness, no muscle spasm Extremities/Musculoskelatal: no calf tenderness, normal capillary refill, no pedal edema Neurologic/Psych: no motor/sensory deficits, alert, oriented x 3 Skin: normal color, warm/dry, no rash Lymphatic: no adenopathy Hospital Course 71 year old male presents to the ED complaining of daily rectal bleeding since colonoscopy 6 days ago. Patient is on coumadin. INR 1.6 RECTAL BLEEDING- LLQ abdominal pain recently had polypectomy no more episodes hb stable ct abd/pelvis unremarkable hemodynamics stable s/p colonoscopy today 10/26/16 and was unremarkable except for internal hemorrhoids and was thought to be cause for bleeding Gi ok to resume Coumadin ATRIAL FIBRILLATION INR 1.6 on presentation and 1.4 today Coumadin on hold Coumadin restarted at duischarge f/u with [facility] CAD asymptomatic on statin HTN stable f/u with pcp. H/O PACEMAKER HLD On Statin CKD STAGE 3 cr stable AT 1.2 WILL F/U LABS DELANO intolerant of CPAP DIET CONTROLLED DM2 stable DEPRESSION on Zoloft ESSENTIAL TREMOR On Topiramate Discharged home Total time spent on discharge = 35MINUTES This includes examination of the patient, discharge planning, medication reconciliation, and communication with other providers. Discharge Instructions Discharge Instructions Date of Service Oct 26, 2016. Admission Reason for Admission: Rectal Bleeding Discharge Discharge Diagnosis / Problem: RECTAL BLEEDING Discharge Goals Goal(s): Decrease discomfort, Improve function Activity Recommendations Activity Limitations: resume your previous activity . Instructions / Follow-Up Instructions / Follow-Up FOLLOWUP WITH FAMILY DOCTOR ON October AT 11:10AM FOLLOWUP WITH COU[facility]ADIN CLINIC FOR COUMADIN DOSING Current Hospital Diet Patient's current hospital diet: Diabetes Type 2 Diet, Clear Liquid Diet Discharge Diet Recommended Diet: AHA Diet (Heart Healthy) Procedures Procedures Performed: Colonoscopy Pending Studies Studies pending at discharge: no Medical Emergencies . Who to Call and When: Medical Emergencies: If at any time you feel your situation is an emergency, please call 911 immediately. . Non-Emergent Contact Non-Emergency issues call your: Primary Care Provider . . "Provider Documentation" section prepared by Paulie Bishop. VTE Core Measure Inpt VTE Proph given/why not?: SCD's
== END 2016-10-26 16:45 | disposition home or self-care (01) | DRG 395 ==
LOC: ENRESERVDT → ENRESERVTM → C.EDB 15:51 → C.2T 18:09 → OBSVTOIN 10-25 15:56
PROVIDERS: ADMIT Internal Medicine; ATTEND Internal Medicine
PROC: 0DJD8ZZ Inspection of Lower Intestinal Tract, Via Natural or Artificial Opening Endoscopic (ICD-10-PCS; principal; 2016-10-26 10:45)
DX: K64.0 First degree hemorrhoids (principal); F32.9 Major depressive disorder, single episode, unspecified; I25.10 Atherosclerotic heart disease of native coronary artery without angina pectoris; Z79.01 Long term (current) use of anticoagulants; Z95.0 Presence of cardiac pacemaker; K57.30 Diverticulosis of large intestine without perforation or abscess without bleeding; I12.9 Hypertensive chronic kidney disease with stage 1 through stage 4 chronic kidney disease, or unspecified chronic kidney disease; N18.3 Chronic kidney disease, stage 3 (moderate); E11.21 Type 2 diabetes mellitus with diabetic nephropathy; G47.33 Obstructive sleep apnea (adult) (pediatric); G25.0 Essential tremor; I48.2 Chronic atrial fibrillation; E78.5 Hyperlipidemia, unspecified; Z95.5 Presence of coronary angioplasty implant and graft; Z83.3 Family history of diabetes mellitus; Z98.890 Other specified postprocedural states

== ENCOUNTER 2023-10-29 14:41 | Inpatient (IN) ==
--- NOTE | 2023-10-29 15:23 | Emergency Department Note ---
History of Present Illness General Chief complaint: Back Injury/Pain Stated complaint: PAIN IN LOWER BACK DOWN TO LEGS Time Seen by Provider: 10/29/23 15:12 History of Present Illness NAME: RADHA NAGY AGE: 78 SEX: M : 1945 ARRIVES VIA: Walk-In INFORMANT: Patient ED PROVIDER(S): MI Dumont, Escobar Francisco MD The patient is a 78-year-old male who arrives to the emergency department for evaluation of lumbar back pain with radiation to his left leg. He reports the pain has been persistent over the last few months, however today it is a 7/10. States the pain is worse with standing, and moving, as well as laying flat. He reports a history of a lumbar laminectomy 19 years ago, and multiple appointments with orthospine for injections and treatment. The patient states he took Tylenol at home for pain, which did not help. He denies any numbness or tingling in his lower extremities, he denies numbness or tingling in his groin, or loss of bowel or bladder. Home Medications Medication Instructions Recorded Confirmed Type acetaminophen 500 mg tablet 500 mg PO Q6H PRN Pain 08/24/19 10/29/23 History atorvastatin 80 mg tablet 80 mg PO HS 08/24/19 10/29/23 History cholecalciferol (vitamin D3) 125 5,000 units PO QAM 08/24/19 10/29/23 History mcg (5,000 unit) disintegrating tablet lisinopril 10 mg tablet 10 mg PO QAM 08/24/19 10/29/23 History sertraline 100 mg tablet 100 mg PO QAM 08/24/19 10/29/23 History topiramate 100 mg tablet 100 mg PO QPM 06/13/23 10/29/23 History warfarin 5 mg tablet (Jantoven) 5 - 7.5 mg PO UD 06/13/23 10/29/23 History propranolol 80 mg capsule,24 80 mg PO QAM 08/16/23 10/29/23 History hr,extended release Allergies Allergy/AdvReac Type Severity Reaction Status Date / Time codeine AdvReac Unknown N/V Verified 10/07/23 14:38 morphine AdvReac Unknown N/V Verified 10/07/23 14:38 Past Med/Surg History Medical History History of COVID-19 x4. Most recent beginning of 2022. Continues altered taste and no smell. Experiences sob on exertion. Depression History of colon polyps Knee problem bilat. On anticoagulant therapy warfarin daily Chronic back pain Rectal bleeding on occ. 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 --follows with Dr. Minor Pacemaker replaced on 09/2019 [facility] @ [facility] last check 2 mon ago. Atrial fibrillation reason for warfarin--Dr. Castillo. Sleep apnea no device Cervical radiculopathy limited rom. Ulnar neuropathy of left upper extremity Essential tremor left hand Surgical History History of pacemaker original sx and 2 revisions. History of cardioversion multiple History of open reduction and internal fixation (ORIF) procedure left--hardware in place History of lumbar spinal fusion History of cholecystectomy History of colonoscopy with polypectomy History of wisdom tooth extraction History of heart artery stent x2 History of cardiac cath x3--last --total of 2 stents History of cardiac radiofrequency ablation x2 History of carpal tunnel surgery bilt wrists Family History Mother Cardiac disorder Father Cardiac disorder Sister Cardiac disorder Family history of diabetes mellitus Brother Cardiac disorder Family history of diabetes mellitus Other No family history of adverse response to anesthesia Social History Smoking Status: Current some day smoker Tobacco Type: Cigarettes Cigarettes Per Day: sometimes cigar/advised npo; Second Hand Exposure: No; Do You Dip or Chew Tobacco: No (hx a long time ago); Hx Alcohol Use: Yes Alcohol type: hard liquor Hx Substance Use: No Preferred Language: Frisian Communication Ability: Effective Visual Impairment: No Limitations Hearing Ability: Normal Roentgenology Teacher Required: No Beliefs That Will Affect Care: None marital status: Current Living Situation: Spouse 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, 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 Feels Safe at Home: Yes Assistive Devices: None Physical Exam Vital Signs Vital Signs - 24 hr 10/29/23 14:50 10/29/23 17:39 10/29/23 17:40 Temperature 36.7 C Temperature Source Temporal Artery Scan Pulse Rate 75 75 80 Pulse Rate [Right Finger] Pulse Rate from SpO2 Sensor 76 Pulse Rhythm Respiratory Rate 20 16 Respiratory Effort / Characteristics Non-Labored Spontaneous Respiratory Depth Normal Blood Pressure 129/68 Blood Pressure [Left Arm] Blood Pressure Mean 88 Blood Pressure Mean [Left Arm] Pulse Oximetry 99 98 Oxygen Delivery Method Room Air Sepsis Recent Fever Within 48 Hours No Sepsis New/Unexplained Change in Mental Status N/A Sepsis Action Taken by Nursing No Action Required 10/29/23 17:55 10/29/23 17:55 10/29/23 18:00 Temperature Temperature Source Pulse Rate 74 75 Pulse Rate [Right Finger] 75 Pulse Rate from SpO2 Sensor 75 Pulse Rhythm Regular Respiratory Rate 16 16 12 Respiratory Effort / Characteristics Respiratory Depth Blood Pressure Blood Pressure [Left Arm] 148/87 H Blood Pressure Mean Blood Pressure Mean [Left Arm] 107 Pulse Oximetry 97 95 90 Oxygen Delivery Method Room Air Room Air Sepsis Recent Fever Within 48 Hours Sepsis New/Unexplained Change in Mental Status Sepsis Action Taken by Nursing VITALS: Vitals are noted on the nurse's note and reviewed by myself. Vital signs stable. GENERAL: 78-year-old male, in mild distress, nondiaphoretic, well-developed well-nourished. SKIN: The skin was without rashes, erythema, edema, or bruising. HEAD: Normocephalic atraumatic. HEART: Regular rate and rhythm without murmurs gallops or rubs. LUNGS: Clear to auscultation bilaterally without wheezes, rales or rhonchi. No retractions or accessory muscle use. ABDOMEN: Positive bowel sounds x 4. Soft, nontender, without masses or organomegaly. Cox sign negative. No guarding or rebound tenderness. MUSCULOSKELETAL: Tenderness to palpation lumbar spine, bilateral paraspinal muscles. Positive straight leg raise left. Strength 5/5 bilaterally. NEURO: Patient was alert and oriented to person place and time. No focal neurological deficits. Course Administered Medications Acetaminophen (Acetaminophen 500 Mg Tab) 1,000 mg PO Q8 MEGHA Stop: 11/28/23 22:59 Last Admin: 10/30/23 05:59 Dose: 1,000 mg Documented By: Admin: 10/29/23 23:19 Dose: 1,000 mg Documented By: HAKAN Atorvastatin Calcium (Atorvastatin 40 Mg Tab) 80 mg PO HS [facility] Stop: 11/28/23 20:59 Last Admin: 10/29/23 23:19 Dose: 80 mg Documented By: HAKAN Bisacodyl (Bisacodyl 5 Mg Tabec) 10 mg PO DAILY [facility] Stop: 11/29/23 08:59 Last Admin: 10/30/23 08:01 Dose: 10 mg Documented By: WILLY Gabapentin (Gabapentin 100 Mg Cap) 100 mg PO BID [facility] Stop: 11/28/23 20:59 Last Admin: 10/30/23 07:54 Dose: 100 mg Documented By: Admin: 10/29/23 23:19 Dose: 100 mg Documented By: HAKAN Hydromorphone HCl (Hydromorphone Inj 0.5 Mg/0.5 Ml Syr) 0.5 mg IV Q3H PRN PRN Reason: Severe Pain (Scale 7, 8, 9,10) Stop: 11/12/23 22:39 Last Admin: 10/30/23 13:21 Dose: 0.5 mg Documented By: Admin: 10/30/23 09:36 Dose: 0.5 mg Documented By: Admin: 10/30/23 05:59 Dose: 0.5 mg Documented By: Admin: 10/30/23 02:14 Dose: 0.5 mg Documented By: Admin: 10/29/23 23:20 Dose: 0.5 mg Documented By: HAKAN Dexamethasone 8 mg/ Syringe 2 mls @ 1 mls/min IV Q24H [facility] Stop: 11/04/23 10:59 Last Admin: 10/30/23 11:43 Dose: 1 mls/min Documented By: WILLY Lisinopril (Lisinopril 10 Mg Tab) 10 mg PO QAM [facility] Stop: 11/29/23 08:59 Last Admin: 10/30/23 07:53 Dose: 10 mg Documented By: WILLY Polyethylene Glycol (Polyethylene (Miralax) 17 Gm Pack) 17 gm PO DAILY [facility] Stop: 11/29/23 08:59 Last Admin: 10/30/23 07:54 Dose: 17 gm Documented By: WILLY Propranolol HCl (Propranolol Hcl La 80 Mg Capcr) 80 mg PO QAM [facility] Stop: 11/29/23 08:59 Last Admin: 10/30/23 07:53 Dose: 80 mg Documented By: WILLY Sertraline HCl (Sertraline Hcl 100 Mg Tablet) [facility] [place] Stop: 11/29/23 08:59 Last Admin: 10/30/23 07:54 Dose: 100 mg Documented By: WILLY Topiramate (Topiramate 100 Mg Tab) 100 mg PO QPM [facility] Stop: 11/28/23 20:59 Last Admin: 10/29/23 23:20 Dose: 100 mg Documented By: HAKAN Vitamin D (Cholecalciferol 125 Mcg (5,000 Units) Tab) 125 mcg PO QAM [facility] Stop: 11/29/23 08:59 Last Admin: 10/30/23 07:54 Dose: 125 mcg Documented By: WILLY Discontinued Medications Acetaminophen (Acetaminophen 500 Mg Tab) 1,000 mg PO NOW STA Stop: 10/29/23 15:34 Last Admin: 10/29/23 16:04 Dose: 1,000 mg Documented By: DANO Dexamethasone Sodium Phosphate (DexamethasonePf 10 Mg/Ml Vial) 10 mg IM NOW ONE Stop: 10/29/23 15:34 Last Admin: 10/29/23 16:04 Dose: 10 mg Documented By: DANO Hydromorphone HCl (Hydromorphone Inj 0.5 Mg/0.5 Ml Syr) 0.5 mg IV NOW STA Stop: 10/29/23 17:47 Last Admin: 10/29/23 17:53 Dose: 0.5 mg Documented By: DANO Lidocaine (Lidocaine 5% 1 Patch) 1 patch TD NOW STA Stop: 10/29/23 15:34 Last Admin: 10/29/23 16:03 Dose: 1 patch Documented By: DANO Miscellaneous (Remove Lidoderm Patch) 1 each N/A DAILY@2100 [facility] Stop: 10/29/23 21:01 Last Admin: 10/29/23 23:02 Dose: Not Given Documented By: HAKAN Morphine Sulfate (Morphine Sulfate 4 Mg/Ml 1 Ml Carp\\Vial) 4 mg IV NOW STA Stop: 10/29/23 17:19 Last Admin: 10/29/23 17:28 Dose: 4 mg Documented By: DARRIN Ondansetron HCl (Ondansetron Inj 2 Mg/Ml 2 Ml Vial) 4 mg IV NOW STA Stop: 10/29/23 17:19 Last Admin: 10/29/23 17:28 Dose: 4 mg Documented By: DARRIN Oxycodone HCl (Oxycodone Hcl Ir 5 Mg Tab (Immediate Release)) 5 mg PO NOW STA Stop: 10/29/23 15:34 Last Admin: 10/29/23 16:04 Dose: 5 mg Documented By: DANO Tramadol HCl (Tramadol Hcl 50 Mg Tablet) 50 mg PO NOW STA Stop: 10/29/23 18:30 Last Admin: 10/29/23 18:57 Dose: 50 mg Documented By: DARRIN Warfarin Sodium (Warfarin Sod 5 Mg Tab) 5 mg PO SuTuThSa@1600 [facility] Stop: 11/28/23 19:29 Last Admin: 10/29/23 22:43 Dose: Not Given Documented By: HAKAN Medical Decision Making Differential Diagnosis Musculoskeletal, disc herniation, fracture, metastatic disease, cord compression, discitis, sciatica, cauda equina, infection, aortic disease, renal colic, gastrointestinal, as well as other pathologies. Medical Records Attestation: I reviewed the patient's medical records. Home Medications Current Medication List: was personally reviewed by me Laboratory Data Attestation: I reviewed the patient's lab results. No leukocytosis, stable hemoglobin and hematocrit, significant electrolyte abnormalities. 10/30/23 06:48 10/30/23 06:48 Lab Results 10/29/23 Range/Units 17:30 WBC 5.49 (4.8-10.8) K/ul RBC 4.27 L (4.70-6.10) M/uL Hgb 12.5 L (14.0-18.0) g/dl Hct 39.5 L (42.0-52.0) % MCV 92.5 (80.0-100.0) fL MCH 29.3 (25.0-34.0) pg MCHC 31.6 L (32.0-36.0) g/dL RDW Std Deviation 49.3 H (36.4-46.3) fL RDW Coeff of Tawana 14.6 H (11.5-14.5) % Plt Count 159 (130-400) K/uL MPV 11.7 (9.4-12.4) fL Immature Gran % (Auto) 1.1 % Neut % (Auto) 67.8 % Lymph % (Auto) 18.2 % Merrick % (Auto) 9.1 % Eos % (Auto) 3.1 % Baso % (Auto) 0.7 % Neut # (Auto) 3.72 (1.40-6.50) K/uL Lymph # (Auto) 1.00 L (1.20-3.40) K/uL Merrick # (Auto) 0.50 (0.11-0.59) K/uL Eos # (Auto) 0.17 (0.00-0.50) K/uL Baso # (Auto) 0.04 (0.00-0.20) K/uL Immature Gran # (Auto) 0.06 (0.01-0.20) K/uL PT 25.0 H (9.0-12.0) Seconds INR 2.4 H (0.9-1.1) Sodium 140 (136-145) mmol/L Potassium 4.5 (3.5-5.1) mmol/L Chloride 112 H (98-107) mmol/L Carbon Dioxide 24 (21-32) mmol/L Anion Gap 4 (3-11) BUN 25 H (6-23) mg/dl Creatinine 1.35 (0.6-1.4) mg/dl Est Cr Clr Drug Dosing 53.1 ml/min Est GFR ( Amer) 58.3 ml/min Est GFR (Non-Af Amer) 50.3 ml/min BUN/Creatinine Ratio 18.5 (10-20) Glucose 107 H (70-99(Fasting)) mg/dl Calcium 9.1 (8.6-10.3) mg/dl Total Bilirubin 0.4 (0.2-1.0) mg/dl AST 15 (13-39) U/L ALT 17 (7-52) U/L Alkaline Phosphatase 54 (34-104) U/L Total Protein 6.8 (6.0-8.3) gm/dl Albumin 4.0 (3.4-5.0) gm/dl Globulin 2.8 (2.5-4.0) gm/dl Albumin/Globulin Ratio 1.4 (0.9-2) Imaging Data Radiologist's Impression: Lumbar Spine CT 10/29/23 15:33 CT lumbar spine wo con HISTORY: 78 years-old Male pain acute low back pain with left lower extremity radicular symptoms. No acute trauma reported. COMPARISON: CT lumbar spine 06/28/2023 TECHNIQUE: Multiple axial CT images of the lumbar spine were obtained without the use of IV contrast. A dose lowering technique was used consistent with the principals of ABENR. FINDINGS: Chronic L2 compression deformity with kyphoplasty. Discectomy with posterior bilateral davion and screw fusion redemonstrated L5-S1. Unchanged appearance of the fractured right S1 pedicle screw. Mild multilevel intervertebral disc space narrowing with moderate osteophytic spurring and mostly moderate facet arthrosis. No acute fracture, subluxation or endplate erosion. [id number] degeneration of the SI joints. Suboptimal evaluation of the central canal and neural foramina by CT technique. Atherosclerosis of the aorta. No acute intra- abdominal abnormality identified. No paravertebral edema. T12-L1: No central canal or foraminal narrowing. L1-L2: No central canal or foraminal narrowing. L2-L3: Small posterior annular disc bulge. No central canal or foraminal narrowing. 3-04: Small posterior annular disc bulge. No central canal or foraminal narrowing. L4-L5: Not well visualized secondary to artifact from the hardware. There is suggestion of mild bilateral foraminal narrowing with posterior disc osteophyte complex. L5-S1: No high-grade central canal or foraminal narrowing identified, the central canal is not well visualized. IMPRESSION: 1. No acute fracture or subluxation. 2. Posterior interbody davion and screw fusion and discectomy at L5-S1. Unchanged appearance of the fractured right S1 pedicle screw. 3. Chronic fracture with kyphoplasty at L2. ACT 112: Negative or not required by law. The above report was generated using voice recognition software. It may contain grammatical, syntax or spelling errors. Electronically signed by: Mario Bruno M.D. 10/29/2023 4:28 PM Blood Pressure Blood Pressure Findings: Normal blood pressure MDM Narrative Patient is a 78-year-old male who arrives to the emergency department with his for the above-stated complaint. Upon examination the patient is significantly uncomfortable, he is unable to perform range of motion of the lumbar spine without severe pain. He reports his most comfortable position is standing, however he is unable to stand fully straight. Due to the pacemaker we are unable to obtain an MRI at this time in the emergency department. I did order a CT of the lumbar spine for evaluation, which showed no significant change from his previous 2 months ago. The patient does have a significant back history with a lumbar laminectomy, and kyphoplasty. I did attempt to relieve the patient's pain using narcotics, as well as anti-inflammatories and muscle relaxers. This was unsuccessful. A second attempt was made using IV morphine which was also unsuccessful. At that time due to my inability to control patient's pain, I did feel is necessary to admit the patient for pain control. I contacted case management for facilitation of admission. Patient reports provide to the [facility], they will take control of the patient's care from this point forward. The patient's case was discussed with Dr. Francisco, who agreed with my evaluation and treatment plan. Attending Attestation: I Escobar Francisco MD I have reviewed the advanced practitioner's documentation and agree with the plan of care. I accept the responsibility for the associated risk of managing the patient. Impression & Plan Lumbar back pain, Intractable low back pain Discharge Plan Visit Data Chief Complaint: Back Injury/Pain Stated Complaint: PAIN IN LOWER BACK DOWN TO LEGS ED Provider: Escobar Francisco ED Midlevel Provider: Mavis Rodrigez Discharge Problem: Lumbar back pain, Intractable low back pain Patient Disposition: Admitted As Inpatient Discharge Instructions Interventions: ED Discharge Assessment Last Done: 10/29/23 22:27
[2023-10-29] MEDS: LIDOCAINE 5% 1 PATCH TD STA (16:03)
[2023-10-29] MEDS: oxyCODONE HCL IR 5 MG TAB (IMMEDIATE RELEASE) PO STA (16:04)
[2023-10-29] MEDS: dexAMETHasone**PF** 10 MG/ML VIAL IM ONE (16:04)
[2023-10-29] MEDS: ACETAMINOPHEN 500 MG TAB PO STA (16:04)
--- NOTE | 2023-10-29 16:29 | CT Scan Report ---
CT lumbar spine wo con HISTORY: 78 years-old Male pain acute low back pain with left lower extremity radicular symptoms. No acute trauma reported. COMPARISON: CT lumbar spine 06/28/2023 TECHNIQUE: Multiple axial CT images of the lumbar spine were obtained without the use of IV contrast. A dose lowering technique was used consistent with the principals of ABNER. FINDINGS: Chronic L2 compression deformity with kyphoplasty. Discectomy with posterior bilateral davion and screw fusion redemonstrated L5-S1. Unchanged appearance of the fractured right S1 pedicle screw. Mild multi level intervertebral disc space narrowing with moderate osteophytic spurring and mostly moderate face t arthrosis. No acute fracture, subluxation or endplate erosion. [id number] degeneration of the SI joints. Suboptimal evaluation of the central canal and neural foramina by CT technique. Atheroscl erosis of the aorta. No acute intra-abdominal abnormality identified. No paravertebral edema. T12-L1: No central canal or foraminal narrowing. L1-L2: No central canal or foraminal narrowing. L2-L3: Small posterior annular disc bulge. No central canal or foraminal narrowing. 3-04: Small posterior annular disc bulge. No central canal or foraminal narrowing. L4-L5: Not well visualized secondary to artifact from the hardware. There is suggestion of mild bilat eral foraminal narrowing with posterior disc osteophyte complex. L5-S1: No high-grade central canal or foraminal narrowing identified, the central canal is not well v isualized. IMPRESSION: 1. No acute fracture or subluxation. 2. Posterior interbody davion and screw fusion and discectomy at L5-S1. Unchanged appearance of the frac tured right S1 pedicle screw. 3. Chronic fracture with kyphoplasty at L2. ACT 112: Negative or not required by law. The above report was generated using voice recognition software. It may contain grammatical, syntax o r spelling errors. Electronically signed by: Mario Bruno M.D. 10/29/2023 4:28 PM
[2023-10-29] MEDS: ONDANSETRON INJ 2 MG/ML 2 ML VIAL IV STA (17:28)
[2023-10-29] MEDS: MoRPHine SULFATE 4 MG/ML 1 ML CARP\\VIAL IV STA (17:28)
[2023-10-29 17:45] LABS: Basophils # (auto) 0.04 K/uL (0.00-0.20); Basophils % (auto) 0.7 %; Eosinophils # (auto) 0.17 K/uL (0.00-0.50); Eosinophils % (auto) 3.1 %; Hematocrit (blood only) 39.5 % (42.0-52.0); Hemoglobin 12.5 g/dl (14.0-18.0); Immature Granulocytes # (auto) 0.06 K/uL (0.01-0.20); Immature Granulocytes % (auto) 1.1 %; Lymphocytes % (auto) 18.2 %; Mean Corpuscular Hemoglobin 29.3 pg (25.0-34.0); Mean Corpuscular Hgb Conc 31.6 g/dL (32.0-36.0); Mean Corpuscular Volume 92.5 fL (80.0-100.0); Mean Platelet Volume 11.7 fL (9.4-12.4); Monocytes % (auto) 9.1 %; Neutrophils # (auto) 3.72 K/uL (1.40-6.50); Neutrophils % (auto) 67.8 %; Platelet Count 159 K/uL (130-400); RDW Coefficient of Variation 14.6 % (11.5-14.5); RDW Standard Deviation 49.3 fL (36.4-46.3); Red Blood Count 4.27 M/uL (4.70-6.10); White Blood Count 5.49 K/ul (4.8-10.8)
[2023-10-29] MEDS: HYDROmorphone INJ 0.5 MG/0.5 ML SYR IV STA (17:53)
--- NOTE | 2023-10-29 18:04 | History & Physical Report ---
Date of Service October 29, 2023 Assessment & Plan (1) Lumbar degenerative disc disease: (2) Lumbar spinal stenosis: Plan: - Admit to med surg tele -continue with pain management including p.o. tramadol, IV Dilaudid for breakthrough pain, [id number] Tylenol, will continue lidocaine patch and start gabapentin 100 mg BID and can titrate up if he tolerates it (can cause sedation). Pt declines muscle relaxant and states previously did not work for him. -Consult orthospine/pain management: Informed that orthospine is not available tomorrow, so will ask pain management to assist. Upon discharge pt should be scheduled to see ortho spine soon. -Bowel regimen ordered with use of opiate medications -PT/OT consults (3) Afib: (4) Pacemaker: (5) CAD (coronary artery disease): (6) HLD (hyperlipidemia): (7) HTN (hypertension): Plan: -Chronic, stable -Continue antihypertensive medications: Lisinopril, propranolol -Anticoagulated for chronic A-fib with Coumadin, check INR daily, 2.6 today, continue alternating regimen of 7.5 and 5 mg coumadin -Continue statin therapy with atorvastatin 80 mg daily (8) DM2 (diabetes mellitus, type 2): Plan: - Pt is not on medication, no insulin, he does not state that he is diabetic, will require further conversation throughout stay - Encourage diet and exercise - ISS with Accu-Cheks ACHS - A1C 6.7 on 07/31/23, prior to that was > 7, recheck w am labs (9) CKD (chronic kidney disease), stage III: Plan: -Chronic, stable, trend a.m. Cr/BUN at baseline of 1.3 DVT ppx: teds, scds Lines: 1 PIV FEN/GI: HH diet CODE: DNR/DNI Dispo: From home, likely to remain in the hospital x 1-2 days A total of 75 minutes were spent with greater than 50% of that time face to face with the patient, personally reviewing all current laboratories, imaging studies, past medication reconciliation, outpatient chart review, and discussion with specialists to collaborate care for the patient with attending. Please see attending documentation for corrections and/or additions. History of Present Illness Chief Complaint: Back pain Primary Care Provider: Franchesca Baker MD This is a 78-year-old male with PMHx of CAD, A-fib, cardiac pacemaker in situ in 1999, HLD, HTN, hx of CVA x 2, DM type II not on insulin or antihyperglycemic meds, DELANO, vitamin D deficiency, osteoporosis on Prolia, who presents to the hospital with acute worsening back pain been ongoing and progressive x 2 months. Pt has original back surgery in late by Dr. Peralta in [place], again 2009 he had back fusion of lumbar spine by Dr. Connolly. Pt reports that he has had issues with his back for the past few months but it has progressed to the point where he has significant difficulty walking. Pt reports point tenderness over the right side of lumbar spine, as well as radicular pain going down both legs, the left greater than the right, down into the calf muscle. He describes it a sharp shooting pain at times, and happens with and without movement. Pt does note any alleviating factors, and at home he is only been using Tylenol for such. He had previously trialed things such as Biofreeze, IcyHot, muscle spasm reliever many years ago states that none of these things really helped him. He denies any recent trauma, no falls, no injuries to his lower back. Patient lives at home with his . He does not use any devices to help him ambulate. Pt has never previously seen pain management and has not trialed medication such as gapabentin before. Allergies Allergy/AdvReac Type Severity Reaction Status Date / Time codeine AdvReac Unknown N/V Verified 10/07/23 14:38 morphine AdvReac Unknown N/V Verified 10/07/23 14:38 Home Medications Medication Instructions Recorded Confirmed Type acetaminophen 500 mg tablet 500 mg PO Q6H PRN Pain 08/24/19 10/29/23 History atorvastatin 80 mg tablet 80 mg PO HS 08/24/19 10/29/23 History cholecalciferol (vitamin D3) 125 5,000 units PO QAM 08/24/19 10/29/23 History mcg (5,000 unit) disintegrating tablet lisinopril 10 mg tablet 10 mg PO QAM 08/24/19 10/29/23 History sertraline 100 mg tablet 100 mg PO QAM 08/24/19 10/29/23 History topiramate 100 mg tablet 100 mg PO QPM 06/13/23 10/29/23 History warfarin 5 mg tablet (Jantoven) 5 - 7.5 mg PO UD 06/13/23 10/29/23 History propranolol 80 mg capsule,24 80 mg PO QAM 08/16/23 10/29/23 History hr,extended release Past Med/Surg History Medical History History of COVID-19 x4. Most recent beginning of 2022. Continues altered taste and no smell. Experiences sob on exertion. Depression History of colon polyps Knee problem bilat. On anticoagulant therapy warfarin daily Chronic back pain Rectal bleeding on occ. 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 --follows with Dr. Minor Pacemaker replaced on 09/2019 [facility] @ [facility] last check 2 mon ago. Atrial fibrillation reason for warfarin--Dr. Castillo. Sleep apnea no device Cervical radiculopathy limited rom. Ulnar neuropathy of left upper extremity Essential tremor left hand Surgical History History of pacemaker original sx and 2 revisions. History of cardioversion multiple History of open reduction and internal fixation (ORIF) procedure left--hardware in place History of lumbar spinal fusion History of cholecystectomy History of colonoscopy with polypectomy History of wisdom tooth extraction History of heart artery stent x2 History of cardiac cath x3--last --total of 2 stents History of cardiac radiofrequency ablation x2 History of carpal tunnel surgery bilt wrists Family History Mother Cardiac disorder Father Cardiac disorder Sister Cardiac disorder Family history of diabetes mellitus Brother Cardiac disorder Family history of diabetes mellitus Other No family history of adverse response to anesthesia Social History Smoking Status: Current some day smoker Tobacco Type: Cigarettes Cigarettes Per Day: sometimes cigar/advised npo; Second Hand Exposure: No; Do You Dip or Chew Tobacco: No (hx a long time ago); Hx Alcohol Use: Yes Alcohol type: hard liquor Hx Substance Use: No Preferred Language: Slovenian Communication Ability: Effective Visual Impairment: No Limitations Hearing Ability: Normal Simulation Technician Required: No Beliefs That Will Affect Care: None marital status: Current Living Situation: Spouse 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, 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 Feels Safe at Home: Yes Assistive Devices: Glasses and Other Review of Systems Review of Systems: Constitutional: No fever, sweats or chills Eyes: No diplopia, no worsening or blurred vision ENT: normal hearing, no trouble swallowing Respiratory: No cough, sputum, dyspnea at rest or on exertion Cardiovascular: No chest pain, tightness or palpitations Abdomen: No pain, nausea, vomiting, diarrhea or constipation Musculoskeletal: + back pain as per HPI, occasional knee joint pain, no calf pain, no swelling : no bowel or bladder incontinence or saddle anesthesia Neurologic: No weakness, numbness/tingling, or balance problems Psychiatric: No anxiety or depression Skin: No rash or itch Physical Exam Physical Exam: General: awake, alert, no apparent distress, white male Head: Normocephalic, atraumatic ENT: PERRL, EOMI, no pharyngeal exudate, mucous membranes moist Chest: Clear to auscultation, pacemaker Left upper chest wall, on room air O2 sats at 97%, no adventitious breath sounds Cardiac: Regular rate and rhythm, no murmur, no JVD, normal peripheral pulses, good capillary refill Abdominal: NABS x 4 quadrants, soft, nondistended, nontender to palpation, no rebound or guarding Back: point tenderness over right lower back, pain with straight leg raise bilaterally Extremities: Normal inspection, no peripheral edema or erythema, calfs nontender to palpation Psych: Normal mood and affect Neuro: AAO x 3, strength intact bilaterally and rated 5/5 throughout, no motor deficits, speech is clear, no peripheral sensory deficits Results & Data Results & Data Vital Signs (Past 12 Hours) Vital Signs Temp Pulse Pulse Resp BP BP Pulse Ox 10/29/23 17:55 74 16 95 10/29/23 17:55 75 16 148/87 H 97 10/29/23 17:40 80 10/29/23 14:50 36.7 C 75 20 129/68 99 O2 Del Method 10/29/23 17:55 Room Air 10/29/23 17:55 Room Air 10/29/23 17:40 10/29/23 14:50 Room Air Laboratory Results 10/29/23 17:30 WBC 5.49 RBC 4.27 L Hgb 12.5 L Hct 39.5 L MCV 92.5 MCH 29.3 MCHC 31.6 L RDW Std Deviation 49.3 H RDW Coeff of Tawana 14.6 H Plt Count 159 MPV 11.7 Immature Gran % (Auto) 1.1 Neut % (Auto) 67.8 Lymph % (Auto) 18.2 Tate % (Auto) 9.1 Eos % (Auto) 3.1 Baso % (Auto) 0.7 Neut # (Auto) 3.72 Lymph # (Auto) 1.00 L Tate # (Auto) 0.50 Eos # (Auto) 0.17 Baso # (Auto) 0.04 Immature Gran # (Auto) 0.06 PT 25.0 H INR 2.4 H Sodium 140 Potassium 4.5 Chloride 112 H Carbon Dioxide 24 Anion Gap 4 BUN 25 H Creatinine 1.35 Est Cr Clr Drug Dosing 53.1 Est GFR ( Amer) 58.3 Est GFR (Non-Af Amer) 50.3 BUN/Creatinine Ratio 18.5 Glucose 107 H Calcium 9.1 Total Bilirubin 0.4 AST 15 ALT 17 Alkaline Phosphatase 54 Total Protein 6.8 Albumin 4.0 Globulin 2.8 Albumin/Globulin Ratio 1.4 Diagnostic Findings Lumbar Spine CT 10/29/23 15:33 CT lumbar spine wo con HISTORY: 78 years-old Male pain acute low back pain with left lower extremity radicular symptoms. No acute trauma reported. COMPARISON: CT lumbar spine 06/28/2023 TECHNIQUE: Multiple axial CT images of the lumbar spine were obtained without the use of IV contrast. A dose lowering technique was used consistent with the principals of ALARA. FINDINGS: Chronic L2 compression deformity with kyphoplasty. Discectomy with posterior bilateral davion and screw fusion redemonstrated L5-S1. Unchanged appearance of the fractured right S1 pedicle screw. Mild multilevel intervertebral disc space narrowing with moderate osteophytic spurring and mostly moderate facet arthrosis. No acute fracture, subluxation or endplate erosion. [id number] degeneration of the SI joints. Suboptimal evaluation of the central canal and neural foramina by CT technique. Atherosclerosis of the aorta. No acute intra- abdominal abnormality identified. No paravertebral edema. T12-L1: No central canal or foraminal narrowing. L1-L2: No central canal or foraminal narrowing. L2-L3: Small posterior annular disc bulge. No central canal or foraminal narrowing. 3-04: Small posterior annular disc bulge. No central canal or foraminal narrowing. L4-L5: Not well visualized secondary to artifact from the hardware. There is suggestion of mild bilateral foraminal narrowing with posterior disc osteophyte complex. L5-S1: No high-grade central canal or foraminal narrowing identified, the central canal is not well visualized. IMPRESSION: 1. No acute fracture or subluxation. 2. Posterior interbody davion and screw fusion and discectomy at L5-S1. Unchanged appearance of the fractured right S1 pedicle screw. 3. Chronic fracture with kyphoplasty at L2. ACT 112: Negative or not required by law. The above report was generated using voice recognition software. It may contain grammatical, syntax or spelling errors. Electronically signed by: Mario Bruno M.D. 10/29/2023 4:28 PM Code Status & VTE Plan Code Status DNR/DNI - discussed with pt at bedside Supervising Physician Co-Signing Physician Notes Pt was seen and examined by myself, Marcia Phoenix MD on the day of service. Care was coordinated with Maribel Hamilton PA-C. 78yo admitted with intractable back pain that he states has progressed to lower extremity weakening. Denies urinary or bowel changes. Has pacemaker and states he cannot have an MRI of the spine. Pain control, PT/OT. Pain management consult, consider [facility] ortho spine consult since [facility] not cur rently available. Otherwise as above. I spent a total of25 minutes coordinating, documenting, and providing care for this patient excluding time spent in the performance of separately billed servic es (2) Lumbar spinal stenosis Neurogenic claudication status: with neurogenic claudication Qualified Code(s): M48.062 - Spinal stenosis, lumbar region with neurogenic claudication
[2023-10-29 18:07] LABS: Albumin Globulin Ratio 1.4 (0.9-2); BUN Creatinine Ratio 18.5 (10-20); Bilirubin,Total 0.4 mg/dl (0.2-1.0); Calcium 9.1 mg/dl (8.6-10.3); Creatinine Clr Calc Pharmacy 53.1 ml/min; Est GFR (African American) 58.3 ml/min; Est GFR (Non-African American) 50.3 ml/min; Globulin 2.8 gm/dl (2.5-4.0); Potassium 4.5 mmol/L (3.5-5.1); Total Protein 6.8 gm/dl (6.0-8.3)
[2023-10-29 18:35] LABS: INR 2.4 (0.9-1.1)
[2023-10-29] MEDS: traMADol HCL 50 MG TABLET PO STA (18:57)
[2023-10-29] MEDS ORDERED: DEXTROSE 50% 50 ML SYRINGE IV PRN (22:40)
[2023-10-29] MEDS ORDERED: GLUCAGON FOR INJ 1 MG VIAL SQ PRN (22:40)
[2023-10-29] MEDS ORDERED: GLUCOSE 40% GEL 15 GM TUBE PO PRN (22:40)
[2023-10-29] MEDS ORDERED: GLUCOSE 10 TAB/TUBE PO PRN (22:40)
[2023-10-29] MEDS ORDERED: CARBOHYDRATES FOR HYPOGLYCEMIA PO PRN (22:40)
[2023-10-29] MEDS: WARFARIN SOD 5 MG TAB PO SCH (22:43)
[2023-10-29] MEDS: ATORVASTATIN 40 MG TAB PO SCH (23:19)
[2023-10-29] MEDS: GABAPENTIN 100 MG CAP PO SCH (23:19)
[2023-10-29] MEDS: ACETAMINOPHEN 500 MG TAB PO SCH (23:19)
[2023-10-29] MEDS: HYDROmorphone INJ 0.5 MG/0.5 ML SYR IV PRN (23:20)
[2023-10-29] MEDS: TOPIRAMATE 100 MG TAB PO SCH (23:20)
[2023-10-30 07:11] LABS: Hematocrit (blood only) 36.9 % (42.0-52.0); Hemoglobin 11.5 g/dl (14.0-18.0); Mean Corpuscular Hgb Conc 31.2 g/dL (32.0-36.0); Mean Corpuscular Volume 93.2 fL (80.0-100.0); Mean Platelet Volume 11.8 fL (9.4-12.4); Platelet Count 149 K/uL (130-400); RDW Coefficient of Variation 14.5 % (11.5-14.5); RDW Standard Deviation 49.9 fL (36.4-46.3); Red Blood Count 3.96 M/uL (4.70-6.10); White Blood Count 9.86 K/ul (4.8-10.8)
[2023-10-30 07:30] LABS: BUN Creatinine Ratio 19.8 (10-20); Calcium 8.4 mg/dl (8.6-10.3); Creatinine Clr Calc Pharmacy 56.9 ml/min; Est GFR (African American) 63.3 ml/min; Est GFR (Non-African American) 54.7 ml/min; Potassium 4.3 mmol/L (3.5-5.1)
[2023-10-30 07:35] LABS: INR 2.5 (0.9-1.1); Prothrombin Time 25.6 Seconds (9.0-12.0)
[2023-10-30 07:43] LABS: Estimated Average Glucose 166 mg/dl; Hemoglobin A1C 7.4 % (4.5-5.6)
[2023-10-30] MEDS: lisinopril 10 MG TAB PO SCH (07:53)
[2023-10-30] MEDS: PROPRANOLOL HCL LA 80 MG CAPCR PO SCH (07:53)
[2023-10-30] MEDS: SERTRALINE HCL 100 MG TABLET PO SCH (07:54)
[2023-10-30] MEDS: POLYETHYLENE (MIRALAX) 17 GM PACK PO SCH (07:54)
[2023-10-30] MEDS: CHOLECALCIFEROL 125 MCG (5,000 UNITS) TAB PO SCH (07:54)
[2023-10-30] MEDS: bisacodyL 5 MG TABEC PO SCH (08:01)
--- NOTE | 2023-10-30 08:26 | Pain Management Consultation ---
Date of Consultation October 30, 2023 Assessment & Plan (1) Lumbar degenerative disc disease: (2) Hip pain: (3) Leg pain, bilateral: Plan Patient's symptoms do not correlate with lumbar radiculopathy given his description and exam. This jolting type of pain seems different than what he was describing to me on an outpatient basis. The hips are very painful with ROM and thighs are tender to palpation. Pain is worse with weight bearing. He does have known knee issues which he sees [facility]. I would ask of [facility] [place] to evaluate the patient. I did order a pelvis xray to evaluate for any pathology that may be attributing to his pain. He does have Gabapentin 100mg BID ordered which may need increased if tolerated. Tramadol is ordered for pain. I did order Dexamethasone IV to see if it may provide relief. He is welcome to return to the clinic on an outpatient basis. History of Present Illness Reason for Consultation: Intractable pain Attending Physician: Enid Vera MD History of Present Illness This is a 78-year-old male that has been seen at the [facility] for intractable pain. Patient has a significant history of an L5-S1 fusion by Dr. Peralta in [place] about 20 years ago as well as a L2 kyphoplasty by Dr. Connolly about 10 years ago. He is a patient with [facility] pain clinic and seen for lumbar radiculopathy and received an L3-L4 interlaminar epidural steroid injection on 09/12/2023 and at the follow-up visit 1 month later he was reporting 100% pain relief. Today he states that the injection helped for only 1 week and then returned. He states that the pain is in the hips, left greater than right first primary complaint. He does experience a sharp shooting pain down the legs, primarily along the anterior portion the whole way to the feet. The pain is aggravated with certain positional changes as well as weightbearing. He does have low back pain that is aggravated with positional changes. Currently has a lidocaine patch in place. Gabapentin 100 mg twice daily ordered and has tramadol ordered if needed for breakthrough pain. No bowel/bladder incontinence, saddle anesthesia, foot drop, falls. Case discussed with Dr. Mey Jaimes Allergies Allergy/AdvReac Type Severity Reaction Status Date / Time codeine AdvReac Unknown N/V Verified 10/07/23 14:38 morphine AdvReac Unknown N/V Verified 10/07/23 14:38 Home Medications Medication Instructions Recorded Confirmed Type acetaminophen 500 mg tablet 500 mg PO Q6H PRN Pain 08/24/19 10/29/23 History atorvastatin 80 mg tablet 80 mg PO HS 08/24/19 10/29/23 History cholecalciferol (vitamin D3) 125 5,000 units PO QAM 08/24/19 10/29/23 History mcg (5,000 unit) disintegrating tablet lisinopril 10 mg tablet 10 mg PO QAM 08/24/19 10/29/23 History sertraline 100 mg tablet 100 mg PO QAM 08/24/19 10/29/23 History topiramate 100 mg tablet 100 mg PO QPM 06/13/23 10/29/23 History warfarin 5 mg tablet (Jantoven) 5 - 7.5 mg PO UD 06/13/23 10/29/23 History propranolol 80 mg capsule,24 80 mg PO QAM 08/16/23 10/29/23 History hr,extended release Patient History Medical History History of COVID-19 x4. Most recent beginning of 2022. Continues altered taste and no smell. Experiences sob on exertion. Depression History of colon polyps Knee problem bilat. On anticoagulant therapy warfarin daily Chronic back pain Rectal bleeding on occ. 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 --follows with Dr. Minor Pacemaker replaced on 09/2019 [facility] @ [facility] last check 2 mon ago. Atrial fibrillation reason for warfarin--Dr. Castillo. Sleep apnea no device Cervical radiculopathy limited rom. Ulnar neuropathy of left upper extremity Essential tremor left hand Surgical History History of pacemaker original sx and 2 revisions. History of cardioversion multiple History of open reduction and internal fixation (ORIF) procedure left--hardware in place History of lumbar spinal fusion History of cholecystectomy History of colonoscopy with polypectomy History of wisdom tooth extraction History of heart artery stent x2 History of cardiac cath x3--last --total of 2 stents History of cardiac radiofrequency ablation x2 History of carpal tunnel surgery bilt wrists Family History Mother Cardiac disorder Father Cardiac disorder Sister Cardiac disorder Family history of diabetes mellitus Brother Cardiac disorder Family history of diabetes mellitus Other No family history of adverse response to anesthesia Social History Smoking Status: Current some day smoker Tobacco Type: Cigarettes Cigarettes Per Day: sometimes cigar/advised npo; Second Hand Exposure: No; Do You Dip or Chew Tobacco: No (hx a long time ago); Hx Alcohol Use: Yes Alcohol type: hard liquor Hx Substance Use: No Preferred Language: Montserratian Communication Ability: Effective Visual Impairment: No Limitations Hearing Ability: Normal Senior Pricing Analyst Required: No Beliefs That Will Affect Care: None marital status: Current Living Situation: Spouse 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 He is having frequent jolting pains and grimacing in the hospital bed. He is able to roll on his side without assistance. HEAD/FACE: Normocephalic and atraumatic. EYES: No drainage or conjunctival injection. ENT: Nose without bleeding or discharge. Oral mucosa moist. NECK: Full ROM without apparent pain. No swelling or masses noted. RESPIRATORY: Patient with unlabored breathing. No signs of respiratory distress. CHEST/AXILLA: Chest movement symmetrical. No deformities noted. ABDOMEN/GI: No distension BACK: Well-healed surgical incision along the lumbar midline. There is moderate tenderness along the left lumbosacral junction. No focal midline or SI joint tenderness. No myofascial spasm or trigger points noted. SKIN: [place], warm and dry. No rash noted. MS/EXTREMITY: There is 5/5 strength of the bilateral lower extremities. There is left low back pulling of the left low back with left leg raise, negative on the right. There is exquisite tenderness along the bilateral greater trochanteric bursa. Sharp jolting pain is elicited with minimal hip external rotation. There is exquisite tenderness along the left anterior thigh, moderate on the right. No tenderness of the lower legs. NEURO: Alert and appears oriented. Speech is fluent. Cranial Nerves are grossly intact. PSYCH: Alert, pleasant, affect is calm Results (Pain Clinic) Diagnostic Review CT Findings: CT lumbar spine wo con HISTORY: 78 years-old Male pain acute low back pain with left lower extremity radicular symptoms. No acute trauma reported. COMPARISON: CT lumbar spine 06/28/2023 TECHNIQUE: Multiple axial CT images of the lumbar spine were obtained without the use of IV contrast. A dose lowering technique was used consistent with the principals of ALARA. FINDINGS: Chronic L2 compression deformity with kyphoplasty. Discectomy with posterior bilateral davion and screw fusion redemonstrated L5-S1. Unchanged appearance of the fractured right S1 pedicle screw. Mild multilevel intervertebral disc space narrowing with moderate osteophytic spurring and mostly moderate facet arthrosi s. No acute fracture, subluxation or endplate erosion. Phiz-gf-leizseza degeneration of the SI joints. Suboptimal evaluation of the central canal and neural foramina by CT technique. Atherosclerosis of the aorta. No acute intra- abdominal abnormality identified. No paravertebral edema. T12-L1: No central canal or foraminal narrowing. L1-L2: No central canal or foraminal narrowing. L2-L3: Small posterior annular disc bulge. No central canal or foraminal narrowing. 3-04: Small posterior annular disc bulge. No central canal or foraminal narrowing. L4-L5: Not well visualized secondary to artifact from the hardware. There is suggestion of mild bilateral foraminal narrowing with posterior disc osteophyte complex. L5-S1: No high-grade central canal or foraminal narrowing identified, the cent ral canal is not well visualized. IMPRESSION: 1. No acute fracture or subluxation. 2. Posterior interbody davion and screw fusion and discectomy at L5-S1. Unchanged appearance of the fractured right S1 pedicle screw. 3. Chronic fracture with kyphoplasty at L2. ACT 112: Negative or not required by law. The above report was generated using voice recognition software. It may contain grammatical, syntax or spelling errors. Electronically signed by: Mario Bruno M.D. 10/29/2023 4:28 PM
--- NOTE | 2023-10-30 10:26 | CT Scan Report ---
CT pelvis wo con CLINICAL HISTORY: back/hip/pelvis pain TECHNIQUE: Helical axial images of the pelvis were obtained and displayed at 5 and 1 mm intervals. Au tomated dose lowering techniques and/or adjustment according to patient size were utilized for this e xam. This exam was performed without intravenous contrast. CT DOSE: 886.9 mGy.cm COMPARISON: Comparison is made to CT abdomen pelvis 10/24/2016 FINDINGS: Bladder: Unremarkable. Reproductive organs: Unremarkable. Bowel: Diverticulosis is seen without diverticulitis. The appendix is normal. Lymph nodes Pelvic: Unremarkable. Mesenteric: Unremarkable. Peritoneum: Normal Vessels: Unremarkable. Abdominal wall: Left fat containing inguinal hernia. Bones: Degenerative changes in the visualized spine. Posterior fixation hardware is seen spanning L5- S1. IMPRESSION: No acute abnormalities. ACT 112: Negative or not required by law. Electronically signed by: Moises Marrero M.D. 10/30/2023 10:25 AM
[2023-10-30] MEDS: dexAMETHasone 8 MG in SYRINGE 0 ML IV SCH (11:43)
--- NOTE | 2023-10-30 15:01 | Hospitalist Progress Note ---
Date of Service October 30, 2023 Assessment & Plan (1) Intractable low back pain: Plan 78-year-old male with PMH of CAD, A-fib, cardiac pacemaker in situ in 1999, HLD, HTN, CVA x 2, T2DM not on meds, DELANO, vitamin D deficiency, osteoporosis on Prolia presented to the ED 10/28 with worsening back pain that has been going on for 2 months. He denies any loss of bowel and bladder control. He had spinal surgery in late and again in 2009. Last surgery was by Dr. Connolly. He reports taking Tylenol for pain management at home. He denies any febrile illness or flulike illness. He is being managed for the following: Lumbar degenerative disc disease: Chronic L2 compression deformity with kyphoplasty Mild bilateral foraminal narrowing at L4-L5 with posterior disc osteophyte complex Patient coming in with progressive low back pain with radiation to LLE greater than RLE. Patient using Tylenol at home. Admitting lumbar spine CT reviewed. CTAP with no acute finding. Continue pain management with Tylenol, gabapentin/uptitrate, tramadol, hydromorphone Pain management on board, dexamethasone started GI protection and bowel regimen Trial ketorolac, follow response. Pain management evaluating, UOC consult for concern of hip and leg pain. PT/OT. Other chronic medical conditions: Continue with/resume home meds as and when able. A-fib, pacemaker, CAD, HTN, HLD -chronic, stable. Continue lisinopril and propranolol. Continue Coumadin for A-fib. Regimen is alternating 7.5 mg and 5 mg. Continue statin. T2DM: Patient not on medication. Encourage diet and exercise. A1c of 6.7 in July 2023. Prior to that was greater than 7. A1c this admission 7.4. Re peat A1c in 3 months. CKD stage III: Chronic, stable. DVT prophylaxis: Patient on warfarin CODE STATUS: DNR/DNI Dispo: Pain management evaluation ongoing, Ortho evaluation pending. PT/OT, CM to assist with DC planning. Admission and Anticipated Discharge Date Admission Date: October 29, 2023 Subjective Patient was seen and examined at bedside. Patient was lying in bed, on room air, watching television. Patient does not appear to be in acute distress, but reports significant pain. Patient reports taking only Tylenol at home. Patient reports pain going down his left lower extremity more than his right lower extremity. Patient did not have vertebral tenderness on exam. Patient reports eating okay and moving bowels okay. Patient reports transient relief in pain with use of pain medication, but reports pain coming back right away after some time. Physical Exam Physical Exam: GENERAL: Alert and oriented x3. NAD, on RA. HEENT: No pallor, no icterus. Pupils equal, round and reactive to light. Oral mucosa moist. NECK: No JVD, no neck masses. Lt upper chest - pacemaker HEART: S1 and S2 heard. Regular rate and rhythm. No murmur, no gallop. RESPIRATORY SYSTEM: Normal AP diameter. No accessory muscle use. No wheezing, no crackles. ABDOMEN: Soft, bowel sounds present, nontender, no distention. Back exam - no vertebral tenderness noted on exam. CENTRAL NERVOUS SYSTEM: No facial droop. Speech is clear. Obeys simple commands. Moves extremities. EXTREMITIES: No edema, no erythema seen. Results & Data Results & Data Vital Signs (Past 12 Hours) Vital Signs Temp Pulse Pulse Resp BP BP Pulse Ox 10/30/23 14:45 36.3 C L 79 15 136/79 95 10/30/23 11:20 36.4 C L 76 15 117/74 96 10/30/23 07:17 78 10/30/23 07:17 36.5 C 78 15 109/66 96 10/30/23 03:06 36.3 C L 77 20 123/68 96 O2 Del Method 10/30/23 14:45 Room Air 10/30/23 11:20 Room Air 10/30/23 07:17 10/30/23 07:17 Room Air 10/30/23 03:06 Room Air
[2023-10-30] MEDS: KETOROLAC TROMETHAMINE 15 MG/ML VIAL IV ONE (15:14)
[2023-10-30] MEDS: WARFARIN SOD 5 MG TAB PO SCH (15:15)
[2023-10-30] MEDS: WARFARIN SOD 2 MG TAB PO SCH (15:15)
[2023-10-30] MEDS: GABAPENTIN 100 MG CAP PO SCH (20:20)
[2023-10-30] MEDS: KETOROLAC TROMETHAMINE 15 MG/ML VIAL IV PRN (23:39)
[2023-10-31] MEDS: FAMOTIDINE 20 MG TAB PO SCH (07:54)
[2023-10-31] MEDS: traMADol HCL 50 MG TABLET PO PRN (08:02)
[2023-10-31] MEDS: ONDANSETRON INJ 2 MG/ML 2 ML VIAL IV PRN (08:15)
--- NOTE | 2023-10-31 08:54 | Pain Management Progress Note ---
Date of Service October 31, 2023 Assessment & Plan (1) Lumbar degenerative disc disease: (2) Hip pain: (3) Leg pain, bilateral: Plan 1. Pain appears improved today compared to yesterday. Continue medication regimen. I did ask the patient to limit use of IV Dilaudid so that he may re turn to home and he is understanding. He has not yet tried Tramadol during the hospital stay. I have encouraged him to try this medication instead of Dilaudid. 2. Pelvis CT was unremarkable for any fracture. Orthopedics to evaluate. 3. He is to follow up outpatient in the [facility] office. Nothing to offer interventionally during admission. 4. If tolerated could further increase Gabapentin dosage. 5. Recommend physical therapy 6. Please contact with any questions or concerns. Admission and Anticipated Discharge Date Admission Date: October 29, 2023 Subjective Mr. Harmon states that he did have good pain relief last evening and overnight. He was able to ambulate around in the room with the use of a walker. He did find significant pain relief from Toradol IV last evening but states that he has not provided adequate pain relief this morning. Currently rates his pain a 7/10. He has not tried tramadol during the hospital stay. He has required the use of IV Dilaudid 0.5 mg x 4 over the last 24 hours. Gabapentin has been increased to 200 mg twice daily and tolerated well. He continues to describe back pain, leg pains, hip pains. He does appear a lot more comfortable than he was yesterday. No bowel/bladder incontinence, saddle anesthesia, foot drop, leg weakness. Case discussed with Dr. Mey Jaimes Physical Exam Physical Exam: GENERAL: This is a 78 year old male. He does appear in moderate pain with positional changes. HEAD/FACE: Normocephalic and atraumatic. EYES: No drainage or conjunctival injection. ENT: Nose without bleeding or discharge. Oral mucosa moist. NECK: Full ROM without apparent pain. No swelling or masses noted. RESPIRATORY: Patient with unlabored breathing. No signs of respiratory distress. CHEST/AXILLA: Chest movement symmetrical. No deformities noted. ABDOMEN/GI: No distension BACK: Well-healed surgical incision along the lumbar midline. There is moderate tenderness along the left lumbosacral junction. No focal midline or SI joint tenderness. No myofascial spasm or trigger points noted. SKIN: [place], warm and dry. No rash noted. MS/EXTREMITY: There is 5/5 strength of the bilateral lower extremities. There is left low back pulling of the left low back with left leg raise, negative on the right. There is exquisite tenderness along the bilateral greater trochanteric bursa. Moderate pain is elicited with minimal hip external rotation. There is tenderness along the left anterior thigh, moderate on the right. No tenderness of the lower legs. NEURO: Alert and appears oriented. Speech is fluent. Cranial Nerves are grossly intact. PSYCH: Alert, pleasant, affect is calm Results (Pain Clinic) Diagnostic Review CT Findings: CT pelvis wo con CLINICAL HISTORY: back/hip/pelvis pain TECHNIQUE: Helical axial images of the pelvis were obtained and displayed at 5 and 1 mm intervals. Automated dose lowering techniques and/or adjustment according to patient size were utilized for this exam. This exam was performed without intravenous contrast. CT DOSE: 886.9 mGy.cm COMPARISON: Comparison is made to CT abdomen pelvis 10/24/2016 FINDINGS: Bladder: Unremarkable. Reproductive organs: Unremarkable. Bowel: Diverticulosis is seen without diverticulitis. The appendix is normal. Lymph nodes Pelvic: Unremarkable. Mesenteric: Unremarkable. Peritoneum: Normal Vessels: Unremarkable. Abdominal wall: Left fat containing inguinal hernia. Bones: Degenerative changes in the visualized spine. Posterior fixation hardware is seen spanning L5-S1. IMPRESSION: No acute abnormalities. ACT 112: Negative or not required by law. Electronically signed by: Moises Marrero M.D. 10/30/2023 10:25 AM
[2023-10-31 08:55] LABS: INR 2.4 (0.9-1.1); Prothrombin Time 24.4 Seconds (9.0-12.0)
--- NOTE | 2023-10-31 15:11 | Orthopedic Consultation ---
Date of Consultation October 31, 2023 Assessment & Plan (1) Intractable low back pain: Weightbearing hip films are not available to me to review. The patient had a pelvic CT which is really not much help. However from what we can see on the CT although it is not weightbearing obviously the joint spaces are preserved. His clinical exam does not suggest hip arthritis pathology at all. His hip can be flexed and rotated with no groin pain. And again the patient's pink symptom complex is not groin pain the pain traveling down his leg to his knee and beyond. This sounds more like sciatica and/or neurogenic claudication. I do think with his history of spine problems his spine is the most likely cause of this. He will be seen by the spine team his CT scan evaluated and further decision making will go from there but from a hip standpoint I feel that there is really nothing to offer. (2) Lumbar back pain: (3) Leg pain, bilateral: History of Present Illness Reason for Consultation: Bilateral hip and leg pain left greater than right This patient is a 78-year-old male with a fairly extensive medical history to include chronic anticoagulation due to atrial fibrillation. He also has a history of hyperlipidemia and hypertension. The patient has a remote history of L4-L5 fusion done more than 20 years ago in [place]. He apparently did well for a good bit of time. He also has a history of a T12 kyphoplasty for fracture done locally. He states that his problem has been gradual in onset and is not associated with any specific injury. The knee discomfort has been slowly progressive and is now gotten quite severe. He describes the pain as spasms tingling burning and bilateral worse on the left than the right. The pain is present no matter what he does at rest or with activity. He has what sounds like some element of neurogenic claudication and that if he walks any distance he has to stop. He was admitted for severe pain control and orthopedic consultation was placed. Attending Physician: Enid Vera MD Allergies Allergy/AdvReac Type Severity Reaction Status Date / Time codeine AdvReac Unknown N/V Verified 10/07/23 14:38 morphine AdvReac Unknown N/V Verified 10/07/23 14:38 Home Medications Medication Instructions Recorded Confirmed Type acetaminophen 500 mg tablet 500 mg PO Q6H PRN Pain 08/24/19 10/29/23 History atorvastatin 80 mg tablet 80 mg PO HS 08/24/19 10/29/23 History cholecalciferol (vitamin D3) 125 5,000 units PO QAM 08/24/19 10/29/23 History mcg (5,000 unit) disintegrating tablet lisinopril 10 mg tablet 10 mg PO QAM 08/24/19 10/29/23 History sertraline 100 mg tablet 100 mg PO QAM 08/24/19 10/29/23 History topiramate 100 mg tablet 100 mg PO QPM 06/13/23 10/29/23 History warfarin 5 mg tablet (Jantoven) 5 - 7.5 mg PO UD 06/13/23 10/29/23 History propranolol 80 mg capsule,24 80 mg PO QAM 08/16/23 10/29/23 History hr,extended release Patient History Medical History History of COVID-19 x4. Most recent beginning of 2022. Continues altered taste and no smell. Experiences sob on exertion. Depression History of colon polyps Knee problem bilat. On anticoagulant therapy warfarin daily Chronic back pain Rectal bleeding on occ. 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 --follows with Dr. Minor Pacemaker replaced on 09/2019 [facility] @ [facility] last check 2 mon ago. Atrial fibrillation reason for warfarin--Dr. Castillo. Sleep apnea no device Cervical radiculopathy limited rom. Ulnar neuropathy of left upper extremity Essential tremor left hand Surgical History History of pacemaker original sx and 2 revisions. History of cardioversion multiple History of open reduction and internal fixation (ORIF) procedure left--hardware in place History of lumbar spinal fusion History of cholecystectomy History of colonoscopy with polypectomy History of wisdom tooth extraction History of heart artery stent x2 History of cardiac cath x3--last --total of 2 stents History of cardiac radiofrequency ablation x2 History of carpal tunnel surgery bilt wrists Family History Mother Cardiac disorder Father Cardiac disorder Sister Cardiac disorder Family history of diabetes mellitus Brother Cardiac disorder Family history of diabetes mellitus Other No family history of adverse response to anesthesia Social History Smoking Status: Current some day smoker Tobacco Type: Cigarettes Cigarettes Per Day: sometimes cigar/advised npo; Second Hand Exposure: No; Do You Dip or Chew Tobacco: No (hx a long time ago); Hx Alcohol Use: Yes Alcohol type: hard liquor Hx Substance Use: No Preferred Language: Albanian Communication Ability: Effective Visual Impairment: No Limitations Hearing 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 He is obviously uncomfortable and states that he cannot find any position that is comfortable. He holds his left leg flexed and any attempt to straighten it causes pain that radiates down the sciatic distribution through the posterior thigh knee and even into the calf. His exam is limited but both hips today can be flexed and rotated freely without any groin discomfort. Movement of the left leg reproduces pain but in a sciatic type fashion and seems more like tension signs and it does any relationship to his hip joints. He has no tenderness over the trochanters either. Results & Data Vital Signs (Past 12 Hours) Vital Signs Temp Pulse Pulse Resp BP BP Pulse Ox 10/31/23 11:19 36.3 C L 77 18 116/69 96 10/31/23 08:00 36.4 C L 78 18 127/78 97 10/31/23 07:04 75 10/31/23 03:24 36.5 C 72 16 133/89 98 O2 Del Method 10/31/23 11:19 Room Air 10/31/23 08:00 Room Air 10/31/23 07:04 10/31/23 03:24 Room Air Diagnostic Findings Patient had a CT scan of the pelvis which I personally reviewed. This is subo ptimal because it really does not show the hips in a weightbearing fashion. Nonetheless his hip exam today suggest that he has no hip pathology.
--- NOTE | 2023-10-31 17:09 | Hospitalist Progress Note ---
Date of Service October 31, 2023 Assessment & Plan (1) Intractable low back pain: Plan 78-year-old male with PMH of CAD, A-fib, cardiac pacemaker in situ in 1999, HLD, HTN, CVA x 2, T2DM not on meds, DELANO, vitamin D deficiency, osteoporosis on Prolia presented to the ED 10/28 with worsening back pain that has been going on for 2 months. He denies any loss of bowel and bladder control. He had spinal surgery in late and again in 2009. Last surgery was by Dr. Connolly. He reports taking Tylenol for pain management at home. He denies any febrile illness or flulike illness. He is being managed for the following: Lumbar degenerative disc disease: Chronic L2 compression deformity with kyphoplasty Mild bilateral foraminal narrowing at L4-L5 with posterior disc osteophyte complex Patient coming in with progressive low back pain with radiation to LLE greater than RLE. Patient using Tylenol at home. Admitting lumbar spine CT reviewed. CTAP with no acute finding. Continue pain management with Tylenol, gabapentin/uptitrate, tramadol, hydromorphone Pain management on board, dexamethasone started GI protection and bowel regimen prn ketorolac, pt reports help. Pain management evaluating, UOC consult for concern of hip and leg pain, appreciate PT/OT. SLRT +ve, Will consult orthospine Other chronic medical conditions: Continue with/resume home meds as and when able. A-fib, pacemaker, CAD, HTN, HLD -chronic, stable. Continue lisinopril and propranolol. Continue Coumadin for A-fib. Regimen is alternating 7.5 mg and 5 mg. Continue statin. T2DM: Patient not on medication. Encourage diet and exercise. A1c of 6.7 in July 2023. Prior to that was greater than 7. A1c this admission 7.4. Re peat A1c in 3 months. CKD stage III: Chronic, stable. DVT prophylaxis: Patient on warfarin CODE STATUS: DNR/DNI Dispo: Pain management evaluation ongoing, Ortho evaluation pending. PT/OT, CM to assist with DC planning. Admission and Anticipated Discharge Date Admission Date: October 29, 2023 Subjective Patient was seen and examined at bedside. Patient was lying in bed, on room air, sleeping. Patient reports improvement in his pain but he still is significant. Patient did not have vertebral tenderness on exam. Patient reports eating okay and moving bowels okay. Upon discussion with the patient, patient wishes to see Dr. Connolly. Communicated with Dr. Connolly. Physical Exam Physical Exam: GENERAL: Alert and oriented x3. NAD, on RA. HEENT: No pallor, no icterus. Pupils equal, round and reactive to light. Oral mucosa moist. NECK: No JVD, no neck masses. Lt upper chest - pacemaker HEART: S1 and S2 heard. Regular rate and rhythm. No murmur, no gallop. RESPIRATORY SYSTEM: Normal AP diameter. No accessory muscle use. No wheezing, no crackles. ABDOMEN: Soft, bowel sounds present, nontender, no distention. Back exam - no vertebral tenderness noted on exam. CENTRAL NERVOUS SYSTEM: No facial droop. Speech is clear. Obeys simple commands. Moves extremities. EXTREMITIES: No edema, no erythema seen. SLRT +ve B/l. Results & Data Results & Data Vital Signs (Past 12 Hours) Vital Signs Temp Pulse Pulse Resp BP Pulse Ox O2 Del Method 10/31/23 15:27 36.5 C 75 18 137/81 98 Room Air 10/31/23 15:21 75 10/31/23 11:19 36.3 C L 77 18 116/69 96 Room Air 10/31/23 08:00 36.4 C L 78 18 127/78 97 Room Air 10/31/23 07:04 75
[2023-11-01 07:24] LABS: Hematocrit (blood only) 36.4 % (42.0-52.0); Hemoglobin 11.6 g/dl (14.0-18.0); Mean Corpuscular Hemoglobin 29.1 pg (25.0-34.0); Mean Corpuscular Hgb Conc 31.9 g/dL (32.0-36.0); Mean Corpuscular Volume 91.5 fL (80.0-100.0); Platelet Count 155 K/uL (130-400); RDW Coefficient of Variation 14.5 % (11.5-14.5); RDW Standard Deviation 48.1 fL (36.4-46.3); Red Blood Count 3.98 M/uL (4.70-6.10); White Blood Count 11.19 K/ul (4.8-10.8)
[2023-11-01 07:36] LABS: INR 2.9 (0.9-1.1); Prothrombin Time 29.3 Seconds (9.0-12.0)
[2023-11-01 07:46] LABS: BUN Creatinine Ratio 25.2 (10-20); Calcium 8.6 mg/dl (8.6-10.3); Creatinine Clr Calc Pharmacy 47.5 ml/min; Est GFR (African American) 50.9 ml/min; Est GFR (Non-African American) 43.9 ml/min; Potassium 4.6 mmol/L (3.5-5.1)
--- NOTE | 2023-11-01 09:31 | Orthopedic Consultation ---
Date of Consultation November 01, 2023 Assessment & Plan (1) Lumbar radiculopathy: Assessment lumbar radiculopathy. Plan at this time I would like to obtain a CT myelogram of the lumbar spine. X-ray images would be necessary in light of the metal artifact created by the stainless steel hardware. Unfortunately is not able to have an MRI in light of his pacemaker. He understands agrees with this plan. We will also investigate whether we can hold the Coumadin and perform the study as soon as Saturday for further recommendations. History of Present Illness Reason for Consultation: Bilateral leg pain left greater than right Attending Physician: Enid Vera MD History of Present Illness This is a 78-year-old male with saddle several month history of severe left greater than right leg pain. Describes it across the lumbar spine radiating to the left thigh anteriorly to the knee. It does extend below the knee. It very painful along the left knee. He does experience some symptoms on the right leg but less debilitating. This is markedly compromised his ability to stand and ambulate. He does have a history of a lumbar decompression fusion many years ago as well as a kyphoplasty performed by myself just a few years ago. He denies any specific trauma fall or event. He has not responded any recent injections. Allergies Allergy/AdvReac Type Severity Reaction Status Date / Time codeine AdvReac Unknown N/V Verified 10/07/23 14:38 morphine AdvReac Unknown N/V Verified 10/07/23 14:38 Home Medications Medication Instructions Recorded Confirmed Type acetaminophen 500 mg tablet 500 mg PO Q6H PRN Pain 08/24/19 10/29/23 History atorvastatin 80 mg tablet 80 mg PO HS 08/24/19 10/29/23 History cholecalciferol (vitamin D3) 125 5,000 units PO QAM 08/24/19 10/29/23 History mcg (5,000 unit) disintegrating tablet lisinopril 10 mg tablet 10 mg PO QAM 08/24/19 10/29/23 History sertraline 100 mg tablet 100 mg PO QAM 08/24/19 10/29/23 History topiramate 100 mg tablet 100 mg PO QPM 06/13/23 10/29/23 History warfarin 5 mg tablet (Jantoven) 5 - 7.5 mg PO UD 11/16/23 04/02/24 History propranolol 80 mg capsule,24 80 mg PO QAM 08/16/23 10/29/23 History hr,extended release Patient History Medical History History of COVID-19 x4. Most recent beginning of 2022. Continues altered taste and no smell. Experiences sob on exertion. Depression History of colon polyps Knee problem bilat. On anticoagulant therapy warfarin daily Chronic back pain Rectal bleeding on occ. 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 --follows with Dr. Minor Pacemaker replaced on 09/2019 [facility] @ [facility] last check 2 mon ago. Atrial fibrillation reason for warfarin--Dr. Castillo. Sleep apnea no device Cervical radiculopathy limited rom. Ulnar neuropathy of left upper extremity Essential tremor left hand Surgical History History of pacemaker original sx and 2 revisions. History of cardioversion multiple History of open reduction and internal fixation (ORIF) procedure left--hardware in place History of lumbar spinal fusion History of cholecystectomy History of colonoscopy with polypectomy History of wisdom tooth extraction History of heart artery stent x2 History of cardiac cath x3--last --total of 2 stents History of cardiac radiofrequency ablation x2 History of carpal tunnel surgery bilt wrists Family History Mother Cardiac disorder Father Cardiac disorder Sister Cardiac disorder Family history of diabetes mellitus Brother Cardiac disorder Family history of diabetes mellitus Other No family history of adverse response to anesthesia Social History Smoking Status: Current some day smoker Tobacco Type: Cigarettes Cigarettes Per Day: sometimes cigar/advised npo; Second Hand Exposure: No; Do You Dip or Chew Tobacco: No (hx a long time ago); Hx Alcohol Use: Yes Alcohol type: hard liquor Hx Substance Use: No Preferred Language: Eritrean Communication Ability: Effective Visual Impairment: No Limitations Hearing Ability: Normal 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 He demonstrates a negative logroll. He has plus 5 out of 5 plantarflexion dorsiflexion extensor houses longus bilaterally. His left quadriceps appear to be L4-5 compared to 5/5 on the right. Sensory appears to be symmetric and intact. Deep tendon reflexes diminished. Results & Data Vital Signs (Past 12 Hours) Vital Signs Temp Pulse Pulse Resp BP BP Pulse Ox 11/01/23 08:01 36.7 C 69 19 150/89 H 98 11/01/23 04:01 36.3 C L 76 18 146/89 H 98 10/31/23 23:54 75 10/31/23 23:21 36.7 C 77 16 154/88 H 95 O2 Del Method 11/01/23 08:01 Room Air 11/01/23 04:01 Room Air 10/31/23 23:54 10/31/23 23:21 Room Air
[2023-11-01] MEDS: GABAPENTIN 300 MG CAP PO SCH (10:15)
[2023-11-01] MEDS: SODIUM CHLORIDE 0.45 % 1,000 ML IV SCH (10:22)
--- NOTE | 2023-11-01 15:06 | Hospitalist Progress Note ---
Date of Service November 01, 2023 Assessment & Plan (1) Intractable low back pain: Plan 78-year-old male with PMH of CAD, A-fib, cardiac pacemaker in situ in 1999, HLD, HTN, CVA x 2, T2DM not on meds, DELANO, vitamin D deficiency, osteoporosis on Prolia presented to the ED 10/28 with worsening back pain that has been going on for 2 months. He denies any loss of bowel and bladder control. He had spinal surgery in late and again in 2009. Last surgery was by Dr. Connolly. He reports taking Tylenol for pain management at home. He denies any febrile illness or flulike illness. He is being managed for the following: Lumbar degenerative disc disease: Chronic L2 compression deformity with kyphoplasty Mild bilateral foraminal narrowing at L4-L5 with posterior disc osteophyte complex Patient coming in with progressive low back pain with radiation to LLE greater than RLE. Patient using Tylenol at home. Admitting lumbar spine CT reviewed. CTAP with no acute finding. Continue pain management with Tylenol, gabapentin/uptitrate, tramadol, hydromorphone Pain management on board, dexamethasone started GI protection for the duration of dexamethasone use and bowel regimen for the duration of opiate use prn ketorolac, pt reports help. SLRT +ve, orthospine evaluated, plan for CT lumbar myelogram and evaluation for possible intervention on Saturday. Coumadin held 10/31 after discussion with the patient, PT/INR daily, once PT/INR less than 2 and awaiting for surgery, will start heparin drip until prior to surgery. Mild dehydration: Baseline creatinine about 1.3, creatinine elevated at 1.51, do es not qualify definition for acute kidney injury. Will start IV fluid as patient getting contrast yesterday. Follow BMP in AM. Hold lisinopril, amlodipine added until lisinopril can be resumed. Other chronic medical conditions: Continue with/resume home meds as and when able. A-fib, pacemaker, CAD, HTN, HLD -chronic, stable. Continue lisinopril and propranolol. Anticoagulation for A-fib -see above. Coumadin regimen is alternating 7.5 mg and 5 mg at home. Continue statin. T2DM: Patient not on medication. Encourage diet and exercise. A1c of 6.7 in July 2023. Prior to that was greater than 7. A1c this admission 7.4. Re peat A1c in 3 months. CKD stage III: Chronic, stable. DVT prophylaxis: Therapeutic INR CODE STATUS: DNR/DNI Dispo: Pain management evaluation ongoing, Ortho evaluation pending. PT/OT, CM to assist with DC planning. Admission and Anticipated Discharge Date Admission Date: October 29, 2023 Subjective Patient was seen and examined at bedside. Patient was lying in bed, on room air, having conversation over the phone. Patient reports not much improvement in his pain, 7/10 in intensity today. Patient did not have vertebral tenderness on exam. Patient reports eating okay and moving bowels okay. Discussed with the patient for holding Coumadin for possible evaluation for surgical intervention early next week. Patient is aware about risks of holding Coumadin given his A-fib. He states that he has held Coumadin for different procedures in the past for up to 5 to 7 days with no problem and he is okay with holding Coumadin. Coumadin will be held, follow PT/INR daily. Physical Exam Physical Exam: GENERAL: Alert and oriented x3. NAD, on RA. HEENT: No pallor, no icterus. Pupils equal, round and reactive to light. Oral mucosa moist. NECK: No JVD, no neck masses. Lt upper chest - pacemaker HEART: S1 and S2 heard. Regular rate and rhythm. No murmur, no gallop. RESPIRATORY SYSTEM: Normal AP diameter. No accessory muscle use. No wheezing, no crackles. ABDOMEN: Soft, bowel sounds present, nontender, no distention. Back exam - no vertebral tenderness noted on exam. CENTRAL NERVOUS SYSTEM: No facial droop. Speech is clear. Obeys simple commands. Moves extremities. EXTREMITIES: No edema, no erythema seen. SLRT +ve B/l. Results & Data Results & Data Vital Signs (Past 12 Hours) Vital Signs Temp Pulse Pulse Resp BP BP Pulse Ox 11/01/23 10:39 36.2 C L 76 18 150/90 H 97 11/01/23 09:00 78 11/01/23 08:01 36.7 C 69 19 150/89 H 98 11/01/23 04:01 36.3 C L 76 18 146/89 H 98 O2 Del Method 11/01/23 10:39 Room Air 11/01/23 09:00 11/01/23 08:01 Room Air 11/01/23 04:01 Room Air
[2023-11-02] MEDS: amLODIPine BESYLATE 5 MG TAB PO SCH (07:31)
[2023-11-02 07:46] LABS: BUN Creatinine Ratio 25.3 (10-20); Calcium 8.4 mg/dl (8.6-10.3); Creatinine Clr Calc Pharmacy 46.5 ml/min; Est GFR (African American) 46.7 ml/min; Est GFR (Non-African American) 40.3 ml/min; Magnesium 2.2 mg/dl (1.7-2.4); Phosphorus 4.3 mg/dl (2.5-4.9)
[2023-11-02 07:53] LABS: Hematocrit (blood only) 35.2 % (42.0-52.0); Hemoglobin 11.6 g/dl (14.0-18.0); Mean Corpuscular Hemoglobin 29.8 pg (25.0-34.0); Mean Corpuscular Volume 90.5 fL (80.0-100.0); Mean Platelet Volume 12.3 fL (9.4-12.4); Platelet Count 146 K/uL (130-400); RDW Coefficient of Variation 14.6 % (11.5-14.5); RDW Standard Deviation 47.8 fL (36.4-46.3); Red Blood Count 3.89 M/uL (4.70-6.10); White Blood Count 10.85 K/ul (4.8-10.8)
[2023-11-02 07:55] LABS: Prothrombin Time 20.7 Seconds (9.0-12.0)
[2023-11-02] MEDS: KETOROLAC TROMETHAMINE 15 MG/ML VIAL IV PRN (13:47)
--- NOTE | 2023-11-02 15:10 | Hospitalist Progress Note ---
Date of Service November 02, 2023 Assessment & Plan (1) Intractable low back pain: Plan: 78-year-old male with PMH of CAD, A-fib, cardiac pacemaker in situ in 1999, HLD, HTN, CVA x 2, T2DM not on meds, DELANO, vitamin D deficiency, osteoporosis on Prolia presented to the ED 10/28 with worsening back pain that has been going on for 2 months. He denies any loss of bowel and bladder control. He had spinal surgery in late and again in 2009. Last surgery was by Dr. Connolly. He reports taking Tylenol for pain management at home. He denies any febrile illness or flulike illness. He is being managed for the following: Lumbar degenerative disc disease: Chronic L2 compression deformity with kyphoplasty Mild bilateral foraminal narrowing at L4-L5 with posterior disc osteophyte complex Patient coming in with progressive low back pain with radiation to LLE greater than RLE. Pain has been unbearable with current use of Tylenol at home Reviewed initial CT of the lumbar spine-MRI could not be done due to placement Currently pain is reasonably controlled with Tylenol/gabapentin/tramadol and hydromorphone Pain management on board, dexamethasone started Appreciate orthospine input and recommendation Will have CT myelogram to evaluate the nerve compression to have definitive management plan from the Has been off of Coumadin so that he can have the procedure on Saturday (2) Atrial fibrillation: Plan: Chronic A-fib status post pacemaker, CAD, chronic, stable. Continue lisinopril and propranolol. Anticoagulation for A-fib -see above. Coumadin regimen is alternating 7.5 mg and 5 mg at home. Continue statin. Coumadin has been on hold-will start intravenous heparin prior to surgery (3) Type 2 diabetes mellitus with hemoglobin A1c goal of less than 7.0%: Plan: T2DM: Patient not on medication. Encourage diet and exercise. A1c of 6.7 in July 2023. Prior to that was greater than 7. A1c this admission 7.4. Repeat A1c in 3 months. Blood sugar remains stable Plan Other chronic medical conditions: Continue with/resume home meds as and when able. Hypertension hyperlipidemia-remains stable CKD stage III: Chronic, stable. DVT prophylaxis: Therapeutic INR CODE STATUS: DNR/DNI Dispo: Pain management evaluation ongoing, Ortho evaluation pending. PT/OT, CM to assist with DC planning. Discussed with the daughter in detail Admission and Anticipated Discharge Date Admission Date: October 29, 2023 Subjective 11/02/2023 The patient was seen and examined in medical telemetry unit in presence of the daughter He has been complaining of back pain with radiation to the left leg up to the ankle for months Denies any bladder and/or bowel problem Condition got worse recently and he came to the emergency room Pain seems to be controlled at rest with current pain regimen Review of Systems Review of Systems: All systems reviewed and are unremarkable except as noted Physical Exam Physical Exam: Lying in bed with acute distress due to back pain and pain in the left leg Constitutional: well developed, well nourished, + ill appearing and + obese Eyes: PERRL, conjunctivae normal, anicteric sclerae ENMT: external ear and nose normal, oropharynx normal Neck: trachea midline, no thyromegaly Respiratory: no respiratory distress Auscultation: lungs clear to auscultation bilaterally Cardiovascular: Rate/Rhythm: regular rate and regular rhythm; not tachycardic Heart Sounds: normal S1 and normal S2; no murmur Extremities: no edema Gastrointestinal (Abdomen): Inspection/Auscultation: normal bowel sounds; abdomen not distended Percussion/Palpation: abdomen soft; abdomen nontender Musculoskeletal: No acute arthritis involving any joints. Lower lumbar tenderness. Straight leg is painful more on the left side than the right Neurologic: No sensory impairment. Power is diminished in the lower extremities due to pain Psychiatric: A+Ox3, euthymic affect Lymphatic: no cervical or axillary lymphadenopathy Results & Data Results & Data Vital Signs (Past 12 Hours) Vital Signs Temp Pulse Pulse Resp BP Pulse Ox O2 Del Method 11/02/23 12:14 36.4 C L 75 18 147/81 H 95 Room Air 11/02/23 08:03 35.8 C L 76 20 161/90 H 97 Room Air 11/02/23 08:00 74 11/02/23 04:03 36.3 C L 78 20 132/70 98 Room Air Laboratory Results Short CBC 11/02/23 Range/Units 06:52 WBC 10.85 H (4.8-10.8) K/ul Hgb 11.6 L (14.0-18.0) g/dl Hct 35.2 L (42.0-52.0) % Plt Count 146 (130-400) K/uL BMP 11/02/23 06:52 Sodium 136 Potassium 5.0 Chloride 107 Carbon Dioxide 26 BUN 41 H Creatinine 1.62 H Glucose 126 H Calcium 8.4 L Medications Administered Current Inpatient Medications Acetaminophen (Acetaminophen 500 Mg Tab) 1,000 mg PO Q8 [facility] Stop: 11/28/23 22:59 Last Admin: 11/02/23 13:46 Dose: 1,000 mg Amlodipine Besylate (Amlodipine Besylate 5 Mg Tab) 5 mg PO QAM [facility] Stop: 12/02/23 08:59 Last Admin: 11/02/23 07:31 Dose: 5 mg Atorvastatin Calcium (Atorvastatin 40 Mg Tab) 80 mg PO HS [facility] Stop: 11/28/23 20:59 Last Admin: 11/01/23 19:59 Dose: 80 mg Bisacodyl (Bisacodyl 5 Mg Tabec) 10 mg PO DAILY [facility] Stop: 11/29/23 08:59 Last Admin: 11/02/23 07:30 Dose: 10 mg Dextrose (Dextrose 50% 50 Ml Syringe) 25 - 50 ml IV UD PRN; Protocol PRN Reason: Hypoglycemia Protocol Stop: 11/28/23 22:39 Famotidine (Famotidine 20 Mg Tab) 20 mg PO QAM [facility] Stop: 11/30/23 08:59 Last Admin: 11/02/23 07:31 Dose: 20 mg Gabapentin (Gabapentin 300 Mg Cap) 300 mg PO TID [facility] Stop: 12/01/23 08:59 Last Admin: 11/02/23 13:48 Dose: 300 mg Glucagon (Glucagon For Inj 1 Mg Vial) 1 mg SQ UD PRN; Protocol PRN Reason: Hypoglycemia Protocol Stop: 11/28/23 22:39 Glucose (Glucose 10 Tab/Tube) 4 - 8 tab PO UD PRN; Protocol PRN Reason: Hypoglycemia Treatment Stop: 11/28/23 22:39 Glucose (Glucose 40% Gel 15 Gm Tube) 15 - 30 gm PO UD PRN; Protocol PRN Reason: Hypoglycemia Protocol Stop: 11/28/23 22:39 Hydromorphone HCl (Hydromorphone Inj 0.5 Mg/0.5 Ml Syr) 0.5 mg IV Q3H PRN PRN Reason: Severe Pain (Scale 7, 8, 9,10) Stop: 11/12/23 22:39 Last Admin: 11/02/23 13:47 Dose: 0.5 mg Dexamethasone 8 mg/ Syringe 2 mls @ 1 mls/min IV Q24H [facility] Stop: 11/04/23 10:59 Last Admin: 11/02/23 12:40 Dose: 1 mls/min Ketorolac Tromethamine (Ketorolac Tromethamine 15 Mg/Ml Vial) 15 mg IV Q6H PRN PRN Reason: Pain Stop: 11/04/23 20:59 Last Admin: 11/02/23 13:47 Dose: 15 mg Lisinopril (Lisinopril 10 Mg Tab) 10 mg PO QAM [facility] Stop: 11/29/23 08:59 Last Admin: 11/01/23 08:21 Dose: 10 mg Miscellaneous (Carbohydrates For Hypoglycemia ) 15 - 30 gm PO UD PRN PRN Reason: Hypoglycemia Protocol Stop: 11/28/23 22:39 Ondansetron HCl (Ondansetron Inj 2 Mg/Ml 2 Ml Vial) 4 mg IV Q4H PRN PRN Reason: Nausea And Vomiting Stop: 11/28/23 22:39 Last Admin: 10/31/23 08:15 Dose: 4 mg Polyethylene Glycol (Polyethylene (Miralax) 17 Gm Pack) 17 gm PO DAILY [facility] Stop: 11/29/23 08:59 Last Admin: 11/02/23 07:31 Dose: 17 gm Propranolol HCl (Propranolol Hcl La 80 Mg Capcr) [facility] [place] Stop: 11/29/23 08:59 Last Admin: 11/02/23 07:31 Dose: 80 mg Sertraline HCl (Sertraline Hcl 100 Mg Tablet) [facility] [place] Stop: 11/29/23 08:59 Last Admin: 11/02/23 07:31 Dose: 100 mg Topiramate (Topiramate 100 Mg Tab) 100 mg PO QPM [facility] Stop: 11/28/23 20:59 Last Admin: 11/01/23 19:59 Dose: 100 mg Tramadol HCl (Tramadol Hcl 50 Mg Tablet) 50 mg PO Q4H PRN PRN Reason: Moderate Pain (Scale 4, 5, 6) Stop: 11/28/23 22:39 Last Admin: 11/02/23 13:47 Dose: 50 mg Vitamin D (Cholecalciferol 125 Mcg (5,000 Units) Tab) 125 mcg PO QAM [facility] Stop: 11/29/23 08:59 Last Admin: 11/02/23 07:30 Dose: 125 mcg Warfarin Sodium (Warfarin Sod 2 Mg Tab) 2 mg PO MoWeFr@1600 [facility] Stop: 11/29/23 15:59 Last Admin: 10/30/23 15:15 Dose: 2 mg Warfarin Sodium (Warfarin Sod 5 Mg Tab) 5 mg PO DAILY@1600 [facility] Stop: 11/29/23 15:59 Last Admin: 10/31/23 15:08 Dose: 5 mg
[2023-11-03 09:31] LABS: INR 1.5 (0.9-1.1); Prothrombin Time 15.7 Seconds (9.0-12.0)
--- NOTE | 2023-11-03 14:20 | Hospitalist Progress Note ---
Date of Service November 03, 2023 Assessment & Plan (1) Intractable low back pain: Plan: 78-year-old male with PMH of CAD, A-fib, cardiac pacemaker in situ in 1999, HLD, HTN, CVA x 2, T2DM not on meds, DELAON, vitamin D deficiency, osteoporosis on Prolia presented to the ED 10/28 with worsening back pain that has been going on for 2 months. He denies any loss of bowel and bladder control. He had spinal surgery in late and again in 2009. Last surgery was by Dr. Connolly. He reports taking Tylenol for pain management at home. He denies any febrile illness or flulike illness. He is being managed for the following: Lumbar degenerative disc disease: Chronic L2 compression deformity with kyphoplasty Mild bilateral foraminal narrowing at L4-L5 with posterior disc osteophyte complex Patient coming in with progressive low back pain with radiation to LLE greater than RLE. Pain has been unbearable with current use of Tylenol at home Reviewed initial CT of the lumbar spine-MRI could not be done due to placement Currently pain is reasonably controlled with Tylenol/gabapentin/tramadol and hydromorphone Pain management on board, dexamethasone started Appreciate orthospine input and recommendation Will have CT myelogram to evaluate the nerve compression to have definitive management plan from the Has been off of Coumadin so that he can have the procedure on Saturday Pain has been increased-will increase tramadol to 100 mg every 6 hourly as needed Will continue other medications No bladder and or bowel problem (2) Atrial fibrillation: Plan: Chronic A-fib status post pacemaker, CAD, chronic, stable. Continue lisinopril and propranolol. Anticoagulation for A-fib -see above. Coumadin regimen is alternating 7.5 mg and 5 mg at home. Continue statin. Coumadin has been on hold-will start intravenous heparin prior to surgery INR is 1.5 today and expected to go down further tomorrow for CT myelogram Will start intravenous heparin following that (3) Type 2 diabetes mellitus with hemoglobin A1c goal of less than 7.0%: Plan: T2DM: Patient not on medication. Encourage diet and exercise. A1c of 6.7 in July 2023. Prior to that was greater than 7. A1c this admission 7.4. Repeat A1c in 3 months. Blood sugar remains stable Plan Other chronic medical conditions: Continue with/resume home meds as and when able. Hypertension hyperlipidemia-remains stable CKD stage III: Chronic, stable. DVT prophylaxis: Therapeutic INR CODE STATUS: DNR/DNI Dispo: Pain management evaluation ongoing, Ortho evaluation pending. PT/OT, CM to assist with DC planning. Discussed with the daughter in detail Admission and Anticipated Discharge Date Admission Date: October 29, 2023 Subjective 11/02/2023 The patient was seen and examined in medical telemetry unit in presence of the daughter He has been complaining of back pain with radiation to the left leg up to the ankle for months Denies any bladder and/or bowel problem Condition got worse recently and he came to the emergency room Pain seems to be controlled at rest with current pain regimen 11/03/2023 The patient was seen and examined in medical telemetry unit He has been having more pain in the back with radiation to the left leg Occasional shortness of breath without any chest pain and her palpitation Has been moving bowel Review of Systems Review of Systems: All systems reviewed and are unremarkable except as noted Physical Exam Physical Exam: Lying in bed with acute distress due to back pain and pain in the left leg Constitutional: well developed, well nourished, + ill appearing and + obese Eyes: PERRL, conjunctivae normal, anicteric sclerae ENMT: external ear and nose normal, oropharynx normal Neck: trachea midline, no thyromegaly Respiratory: no respiratory distress Auscultation: lungs clear to auscultation bilaterally Cardiovascular: Rate/Rhythm: regular rate and regular rhythm; not tachycardic Heart Sounds: normal S1 and normal S2; no murmur Extremities: no edema Gastrointestinal (Abdomen): Inspection/Auscultation: normal bowel sounds; abdomen not distended Percussion/Palpation: abdomen soft; abdomen nontender Musculoskeletal: No acute arthritis involving any of the joint Neurologic: normal touch/pain/proprioception and moves all extremities; no focal motor deficits Psychiatric: A+Ox3, euthymic affect Lymphatic: no cervical or axillary lymphadenopathy Results & Data Results & Data Vital Signs (Past 12 Hours) Vital Signs Temp Pulse Pulse Resp BP BP Pulse Ox 11/03/23 10:59 36.6 C 78 17 116/70 95 11/03/23 09:31 77 11/03/23 08:31 36.6 C 73 16 132/76 98 11/03/23 03:10 36.4 C L 77 20 164/93 H 99 O2 Del Method 11/03/23 10:59 Room Air 11/03/23 09:31 11/03/23 08:31 Room Air 11/03/23 03:10 Room Air Medications Administered Current Inpatient Medications Acetaminophen (Acetaminophen 500 Mg Tab) 1,000 mg PO Q8 [facility] Stop: 11/28/23 22:59 Last Admin: 11/03/23 06:07 Dose: 1,000 mg Amlodipine Besylate (Amlodipine Besylate 5 Mg Tab) 5 mg PO QAM [facility] Stop: 12/02/23 08:59 Last Admin: 11/03/23 09:16 Dose: 5 mg Atorvastatin Calcium (Atorvastatin 40 Mg Tab) 80 mg PO HS [facility] Stop: 11/28/23 20:59 Last Admin: 11/02/23 21:02 Dose: 80 mg Bisacodyl (Bisacodyl 5 Mg Tabec) 10 mg PO DAILY [facility] Stop: 11/29/23 08:59 Last Admin: 11/03/23 11:48 Dose: Not Given Dextrose (Dextrose 50% 50 Ml Syringe) 25 - 50 ml IV UD PRN; Protocol PRN Reason: Hypoglycemia Protocol Stop: 11/28/23 22:39 Famotidine (Famotidine 20 Mg Tab) 20 mg PO QAM [facility] Stop: 11/30/23 08:59 Last Admin: 11/03/23 09:16 Dose: 20 mg Gabapentin (Gabapentin 300 Mg Cap) 300 mg PO TID [facility] Stop: 12/01/23 08:59 Last Admin: 11/03/23 09:15 Dose: 300 mg Glucagon (Glucagon For Inj 1 Mg Vial) 1 mg SQ UD PRN; Protocol PRN Reason: Hypoglycemia Protocol Stop: 11/28/23 22:39 Glucose (Glucose 10 Tab/Tube) 4 - 8 tab PO UD PRN; Protocol PRN Reason: Hypoglycemia Treatment Stop: 11/28/23 22:39 Glucose (Glucose 40% Gel 15 Gm Tube) 15 - 30 gm PO UD PRN; Protocol PRN Reason: Hypoglycemia Protocol Stop: 11/28/23 22:39 Hydromorphone HCl (Hydromorphone Inj 0.5 Mg/0.5 Ml Syr) 0.5 mg IV Q3H PRN PRN Reason: Severe Pain (Scale 7, 8, 9,10) Stop: 11/12/23 22:39 Last Admin: 11/03/23 09:14 Dose: 0.5 mg Dexamethasone 8 mg/ Syringe 2 mls @ 1 mls/min IV Q24H [facility] Stop: 11/04/23 10:59 Last Admin: 11/03/23 09:15 Dose: 1 mls/min Ketorolac Tromethamine (Ketorolac Tromethamine 15 Mg/Ml Vial) 15 mg IV Q6H PRN PRN Reason: Pain Stop: 11/04/23 20:59 Last Admin: 11/03/23 09:15 Dose: 15 mg Lisinopril (Lisinopril 10 Mg Tab) [facility] [place] [place] Stop: 11/29/23 08:59 Last Admin: 11/01/23 08:21 Dose: 10 mg Miscellaneous (Carbohydrates For Hypoglycemia ) 15 - 30 gm PO UD PRN PRN Reason: Hypoglycemia Protocol Stop: 11/28/23 22:39 Ondansetron HCl (Ondansetron Inj 2 Mg/Ml 2 Ml Vial) 4 mg IV Q4H PRN PRN Reason: Nausea And Vomiting Stop: 11/28/23 22:39 Last Admin: 10/31/23 08:15 Dose: 4 mg Polyethylene Glycol (Polyethylene (Miralax) 17 Gm Pack) 17 gm PO DAILY [facility] Stop: 11/29/23 08:59 Last Admin: 11/03/23 09:16 Dose: 17 gm Propranolol HCl (Propranolol Hcl La 80 Mg Capcr) 80 mg PO QAM [facility] Stop: 11/29/23 08:59 Last Admin: 11/03/23 09:15 Dose: 80 mg Sertraline HCl (Sertraline Hcl 100 Mg Tablet) 100 mg PO QAM [facility] Stop: 11/29/23 08:59 Last Admin: 11/03/23 09:16 Dose: 100 mg Topiramate (Topiramate 100 Mg Tab) 100 mg PO QPM [facility] Stop: 11/28/23 20:59 Last Admin: 11/02/23 21:02 Dose: 100 mg Tramadol HCl (Tramadol Hcl 50 Mg Tablet) 100 mg PO Q6H PRN PRN Reason: Moderate Pain (Scale 4, 5, 6) Stop: 12/03/23 11:09 Vitamin D (Cholecalciferol 125 Mcg (5,000 Units) Tab) 125 mcg [facility] [place] [place] Stop: 11/29/23 08:59 Last Admin: 11/03/23 09:16 Dose: 125 mcg Warfarin Sodium (Warfarin Sod 2 Mg Tab) 2 mg PO MoWeFr@1600 [facility] Stop: 11/29/23 15:59 Last Admin: 10/30/23 15:15 Dose: 2 mg Warfarin Sodium (Warfarin Sod 5 Mg Tab) 5 mg PO DAILY@1600 [facility] Stop: 11/29/23 15:59 Last Admin: 10/31/23 15:08 Dose: 5 mg
[2023-11-03] MEDS: traMADol HCL 50 MG TABLET PO PRN (15:26)
[2023-11-03] MEDS: MELATONIN 3 MG TAB PO PRN (21:34)
[2023-11-04 06:37] LABS: INR 1.3 (0.9-1.1)
--- NOTE | 2023-11-04 10:49 | Fluoroscopy Report ---
Lumbar myelogram injection INDICATION: Back pain with radiculopathy PROCEDURE: Procedure and risks were explained. Informed consent was obtained. A final timeout was com pleted. The patient was placed prone on the fluoroscopic examination table. The lower lumbar region w as prepped and draped in sterile fashion. 1% lidocaine was utilized for skin anesthesia. Utilizing fluoroscopic guidance, a 22-gauge spinal needle was advanced into the intrathecal space at the L5 laminectomy surgical site. Permanent spot images were obtained. Approximately 13 mL of Isovue- M 200 was injected. The needle was removed and Band-Aid applied. The patient tolerated the procedure well. He will be transferred to CT for additional imaging. Vital signs will be monitored on the floor postprocedure. Total fluoroscopy time 23 seconds. Study dose is 52.48 mGy. IMPRESSION: Lumbar myelogram injection as above. Please refer to CT myelogram report for additional i nformation. Performed, dictated, and signed by Hector Duval PA-C; to be co-signed by Dr. Moises Marrero. Electronically signed by: Moises Marrero M.D. 11/04/2023 9:02 PM
--- NOTE | 2023-11-04 11:12 | XRay Report ---
XR lumbar spine min 4V routine CLINICAL HISTORY: post myelogram films TECHNIQUE: 5 views of the lumbar spine were obtained. Comparison: Comparison is made to lumbar spine radiographs 06/13/2023 FINDINGS: There is no evidence of an acute fracture. Segment arthroplasty at L2 is again seen. Degenerative sameer nges are seen in the lumbar spine with osteophyte formation and disc space narrowing. L4-L5 fixation hardware is noted, a fracture of the inferior screw is unchanged. The alignment is normal. No soft ti ssue abnormality is seen. IMPRESSION: No acute fracture or subluxation. ACT 112: Negative or not required by law. Electronically signed by: Moises Marrero M.D. 11/04/2023 11:10 AM
--- NOTE | 2023-11-04 11:38 | CT Scan Report ---
CT lumbar post myelogram CLINICAL HISTORY: leg pain TECHNIQUE: Multidetector row helical CT of the lumbar spine was performed without administration of i ntravenous contrast but following myelogram injection. Coronal and sagittal reformations were obtaine d. Automated dose lowering techniques and/or adjustment according to patient size were utilized for t his exam. CT DOSE: 1282.73 mGy.cm Comparison: Comparison is made to CT lumbar spine 10/29/2023 FINDINGS: For counting purposes, the last complete intervertebral disc space is considered L5-S1. Old compression fracture of L2 is seen with cement arthroplasty. Degenerative changes are noted in th e visualized spine. Fixation hardware spans L5-S1. Vertebral body alignment is within normal limits. Surrounding soft tissues are unremarkable. IMPRESSION: No mammographic evidence of significant canal stenosis. The neural foramina appear intact. ACT 112: Negative or not required by law. Electronically signed by: Moises Marrero M.D. 11/04/2023 11:36 AM
--- NOTE | 2023-11-04 15:42 | Orthopedic Progress Note ---
Date of Service November 04, 2023 Assessment & Plan (1) Lumbar radiculopathy: Plan: CT myelogram is available for review. It demonstrates evidence of vacuum phenomenon and foraminal disease at L4-L5 adjacent to his fusion. There is no significant central disease. Plan have discussed with the patient reviewing his findings and options. At this point he does appear to have an L4 radiculopathy which would be concordant with adjacent level facet hypertrophy and foraminal disease. In light of his severe pain and limitations would like to consider surgical invention. Would require a lumbar decompression and fusion L4-5 with removal of instrumentation L5-S1. Risk benefits pros cons and alternatives in detail. Risk include but not limited to anesthesia blindness stroke paralysis nerve damage blood loss requiring transfusion infection requiring reop eration passively marked improvement of his radiculopathy. This time we will make him n.p.o. after midnight and plan for surgery tomorrow. Admission and Anticipated Discharge Date Admission Date: October 29, 2023 Subjective Patient condition have severe left leg pain. Markedly limits his ability to stand and ambulate. Physical Exam Physical Exam: On exam he is in obvious distress. He is most comfortable lying supine. He has reasonable strength testing Results & Data Vital Signs (Past 12 Hours) Vital Signs Temp Pulse Pulse Resp BP Pulse Ox O2 Del Method 11/04/23 15:28 81 11/04/23 11:36 36.5 C 70 18 128/74 92 Room Air 11/04/23 10:26 36.5 C 77 18 147/90 H 97 Room Air 11/04/23 07:37 36.4 C L 76 18 137/78 96 Room Air 11/04/23 07:08 75
--- NOTE | 2023-11-04 16:30 | Anesthesiology Consultation ---
Date of Service November 04, 2023 Assessment & Plan Chart Review Chart Review: Acceptable Risk for Surgery ekg pending Consults Requested none History Surgery Operation Date: 11/05/23 09:05 Proposed Procedures p L4-L5 Decompression and Fusion, L5-S1 Hardware Removal, Spinal Cord Monitoring - Russell Connolly DO Height/Weight Height: 5 ft 10 in Weight: 107 kg Allergies Allergy/AdvReac Type Severity Reaction Status Date / Time codeine AdvReac Unknown N/V Verified 10/07/23 14:38 morphine AdvReac Unknown N/V Verified 10/07/23 14:38 Medications Home Medications Medication Instructions Recorded Confirmed Last Taken acetaminophen 500 mg tablet 500 mg PO Q6H PRN Pain 08/24/19 10/29/23 10/29/23 atorvastatin 80 mg tablet 80 mg PO HS 08/24/19 10/29/23 10/29/23 cholecalciferol (vitamin D3) 125 5,000 units PO QAM 08/24/19 10/29/23 10/29/23 mcg (5,000 unit) disintegrating tablet lisinopril 10 mg tablet 10 mg PO QAM 08/24/19 10/29/23 10/29/23 sertraline 100 mg tablet 100 mg PO QAM 08/24/19 10/29/23 10/29/23 topiramate 100 mg tablet 100 mg PO QPM 06/13/23 10/29/23 10/29/23 warfarin 5 mg tablet (Jantoven) 5 - 7.5 mg PO UD 06/13/23 10/29/23 08/14/23 propranolol 80 mg capsule,24 80 mg PO QAM 08/16/23 10/29/23 10/29/23 hr,extended release Active Medications Generic Name Dose Route Start Last Admin Trade Name Freq PRN Reason Stop Dose Admin Acetaminophen 1,000 mg 10/29/23 23:00 11/04/23 13:19 Acetaminophen 500 Mg Tab PO 11/28/23 22:59 1,000 mg Q8 MEGHA Administration Amlodipine Besylate 5 mg 11/02/23 09:00 11/04/23 08:09 Amlodipine Besylate 5 Mg Tab PO 12/02/23 08:59 5 mg QAM MEGHA Administration Atorvastatin Calcium 80 mg 10/29/23 21:00 11/03/23 21:35 Atorvastatin 40 Mg Tab PO 11/28/23 20:59 80 mg HS MEGHA Administration Bisacodyl 10 mg 10/30/23 09:00 11/04/23 08:12 Bisacodyl 5 Mg Tabec PO 11/29/23 08:59 10 mg DAILY MEGHA Administration Famotidine 20 mg 10/31/23 09:00 11/04/23 08:10 Famotidine 20 Mg Tab PO 11/30/23 08:59 20 mg QAM MEGHA Administration Gabapentin 300 mg 11/01/23 09:00 11/04/23 13:20 Gabapentin 300 Mg Cap PO 12/01/23 08:59 300 mg TID MEGHA Administration Hydromorphone HCl 0.5 mg 10/29/23 22:40 11/04/23 16:27 Hydromorphone Inj 0.5 Mg/0.5 Ml Syr IV 11/12/23 22:39 0.5 mg Q3H PRN Administration Severe Pain (Scale 7, 8, 9,10) Lisinopril 10 mg 10/30/23 09:00 11/01/23 08:21 Lisinopril 10 Mg Tab PO 11/29/23 08:59 10 mg QAM MEGHA Administration Melatonin 3 mg 11/03/23 21:06 11/03/23 21:34 Melatonin 3 Mg Tab PO 12/03/23 21:05 3 mg HS PRN Administration Sleep Ondansetron HCl 4 mg 10/29/23 22:40 10/31/23 08:15 Ondansetron Inj 2 Mg/Ml 2 Ml Vial IV 11/28/23 22:39 4 mg Q4H PRN Administration Nausea And Vomiting Polyethylene Glycol 17 gm 10/30/23 09:00 11/04/23 08:09 Polyethylene (Miralax) 17 Gm Pack PO 11/29/23 08:59 17 gm DAILY MEGHA Administration Propranolol HCl 80 mg 10/30/23 09:00 11/04/23 08:08 Propranolol Hcl La 80 Mg Capcr PO 11/29/23 08:59 80 mg QAM MEGHA Administration Sertraline HCl 100 mg 10/30/23 09:00 11/04/23 08:08 Sertraline Hcl 100 Mg Tablet PO 11/29/23 08:59 100 mg QAM MEGHA Administration Topiramate 100 mg 10/29/23 21:00 11/03/23 21:35 Topiramate 100 Mg Tab PO 11/28/23 20:59 100 mg QPM MEGHA Administration Tramadol HCl 100 mg 11/03/23 11:10 11/04/23 03:25 Tramadol Hcl 50 Mg Tablet PO 12/03/23 11:09 100 mg Q6H PRN Administration Moderate Pain (Scale 4, 5, 6) Vitamin D 125 mcg 10/30/23 09:00 11/04/23 08:09 Cholecalciferol 125 Mcg (5,000 Units) Tab PO 11/29/23 08:59 125 mcg QAM MEGHA Administration Warfarin Sodium 2 mg 10/30/23 16:00 10/30/23 15:15 Warfarin Sod 2 Mg Tab PO 11/29/23 15:59 2 mg MoWeFr@1600 MEGHA Administration Warfarin Sodium 5 mg 10/30/23 16:00 10/31/23 15:08 Warfarin Sod 5 Mg Tab PO 11/29/23 15:59 5 mg DAILY@1600 MEGHA Administration Past Medical History Medical History (Updated 11/04/23 @ 16:30 by Mey Jaimes DO) Kidney disease, chronic, stage III (GFR 30-59 ml/min) Dyslipidemia, goal LDL below 70 DM type 2 causing renal disease Cardiac pacemaker in situ Benign essential tremor Testicular hypofunction Senile osteoporosis Periodic limb movement disorder Pathologic fracture of vertebrae Obstructive sleep apnea of adult Neck pain Fistula Diverticulosis Daytime hypersomnolence Coronary atherosclerosis of [place] coronary vessel Blurry vision Benign neoplasm of large bowel Adjustment disorder with depressed mood History of COVID-19 x4. Most recent beginning of 2022. Continues altered taste and no smell. Experiences sob on exertion. Depression History of colon polyps Knee problem bilat. On anticoagulant therapy warfarin daily Chronic back pain Rectal bleeding on occ. 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 --follows with Dr. Minor Pacemaker replaced on 09/2019 [facility] @ [facility] last check 2 mon ago. Atrial fibrillation reason for warfarin--Dr. Castillo. Sleep apnea no device Cervical radiculopathy limited rom. Ulnar neuropathy of left upper extremity Essential tremor left hand Past Family History Family History Mother Cardiac disorder Father Cardiac disorder Sister Cardiac disorder Family history of diabetes mellitus Brother Cardiac disorder Family history of diabetes mellitus Other No family history of adverse response to anesthesia Past Surgical History Surgical History History of pacemaker original sx and 2 revisions. History of cardioversion multiple History of open reduction and internal fixation (ORIF) procedure left--hardware in place History of lumbar spinal fusion History of cholecystectomy History of colonoscopy with polypectomy History of wisdom tooth extraction History of heart artery stent x2 History of cardiac cath x3--last --total of 2 stents History of cardiac radiofrequency ablation x2 History of carpal tunnel surgery bilt wrists Social History Smoking Status: Current some day smoker Smoking cigarettes per day: sometimes cigar/advised npo Do You Dip or Chew Tobacco: No (hx a long time ago) Hx Alcohol Use: Yes Alcohol type: hard liquor alcohol intake frequency: other Hx Substance Use: No substance use type: does not use Physical Exam Vital Signs Last Vital Signs Temp 36.7 C 11/04/23 15:45 Pulse 79 11/04/23 15:45 Resp 18 11/04/23 15:45 BP 127/77 11/04/23 15:45 Pulse Ox 98 11/04/23 15:45 O2 Del Method Room Air 11/04/23 15:45 Testing Laboratory Results 11/02/23 06:52 11/02/23 06:52 PT 14.0 Seconds (9.0-12.0) H 11/04/23 05:31 INR 1.3 (0.9-1.1) H 11/04/23 05:31 Hemoglobin A1c 7.4 % (4.5-5.6) H 10/30/23 06:48 Chest X-Ray EKG pending
--- NOTE | 2023-11-04 17:22 | Hospitalist Progress Note ---
Date of Service November 04, 2023 Assessment & Plan (1) Intractable low back pain: Plan: 78-year-old male with PMH of CAD, A-fib, cardiac pacemaker in situ in 1999, HLD, HTN, CVA x 2, T2DM not on meds, DELANO, vitamin D deficiency, osteoporosis on Prolia presented to the ED 10/28 with worsening back pain that has been going on for 2 months. He denies any loss of bowel and bladder control. He had spinal surgery in late and again in 2009. Last surgery was by Dr. Connolly. He reports taking Tylenol for pain management at home. He denies any febrile illness or flulike illness. He is being managed for the following: Lumbar degenerative disc disease: Chronic L2 compression deformity with kyphoplasty Mild bilateral foraminal narrowing at L4-L5 with posterior disc osteophyte complex Patient coming in with progressive low back pain with radiation to LLE greater than RLE. Pain has been unbearable with current use of Tylenol at home Reviewed initial CT of the lumbar spine-MRI could not be done due to placement Currently pain is reasonably controlled with Tylenol/gabapentin/tramadol and hydromorphone Pain management on board, dexamethasone started Appreciate orthospine input and recommendation Will have CT myelogram to evaluate the nerve compression to have definitive management plan from the Has been off of Coumadin so that he can have the procedure on Saturday Pain has been increased-will increase tramadol to 100 mg every 6 hourly as needed Will continue other medications No bladder and or bowel problem Status post CT myelogram which revealed L4 radiculopathy and he will have surgical correction tomorrow by Dr. Connolly Will continue to hold anticoagulation at this time (2) Atrial fibrillation: Plan: Chronic A-fib status post pacemaker, CAD, chronic, stable. Continue lisinopril and propranolol. Anticoagulation for A-fib -see above. Coumadin regimen is alternating 7.5 mg and 5 mg at home. Continue statin. Coumadin has been on hold-will start intravenous heparin prior to surgery INR is 1.5 today and expected to go down further tomorrow for CT myelogram Will start intravenous heparin following that Status post lumbar myelogram and will not start any anticoagulation at this time Likely restart anticoagulation with heparin following surgery when appropriate (3) Type 2 diabetes mellitus with hemoglobin A1c goal of less than 7.0%: Plan: T2DM: Patient not on medication. Encourage diet and exercise. A1c of 6.7 in July 2023. Prior to that was greater than 7. A1c this admission 7.4. Repeat A1c in 3 months. Blood sugar remains stable Plan Other chronic medical conditions: Continue with/resume home meds as and when able. Hypertension hyperlipidemia-remains stable CKD stage III: Chronic, stable. DVT prophylaxis: Therapeutic INR CODE STATUS: DNR/DNI Dispo: Pain management evaluation ongoing, Ortho evaluation pending. PT/OT, CM to assist with DC planning. Discussed with the daughter in detail Admission and Anticipated Discharge Date Admission Date: October 29, 2023 Subjective 11/02/2023 The patient was seen and examined in medical telemetry unit in presence of the daughter He has been complaining of back pain with radiation to the left leg up to the ankle for months Denies any bladder and/or bowel problem Condition got worse recently and he came to the emergency room Pain seems to be controlled at rest with current pain regimen 11/03/2023 The patient was seen and examined in medical telemetry unit He has been having more pain in the back with radiation to the left leg Occasional shortness of breath without any chest pain and her palpitation Has been moving bowel 11/04/2023 The patient was seen and examined in medical telemetry unit He is a status post CT myelogram Reviewed by Dr. Connolly and will have surgery tomorrow Review of Systems Review of Systems: All systems reviewed and are unremarkable except as noted Physical Exam Physical Exam: Lying in bed with acute distress due to back pain and pain in the left leg Constitutional: well developed, well nourished, + ill appearing and + obese Eyes: PERRL, conjunctivae normal, anicteric sclerae ENMT: external ear and nose normal, oropharynx normal Neck: trachea midline, no thyromegaly Respiratory: no respiratory distress Auscultation: lungs clear to auscultation bilaterally Cardiovascular: Rate/Rhythm: regular rate and regular rhythm; not tachycardic Heart Sounds: normal S1 and normal S2; no murmur Extremities: no edema Gastrointestinal (Abdomen): Inspection/Auscultation: normal bowel sounds; abdomen not distended Percussion/Palpation: abdomen soft; abdomen nontender Neurologic: normal touch/pain/proprioception and moves all extremities; no focal motor deficits Psychiatric: A+Ox3, euthymic affect Lymphatic: no cervical or axillary lymphadenopathy Results & Data Results & Data Vital Signs (Past 12 Hours) Vital Signs Temp Pulse Pulse Resp BP Pulse Ox O2 Del Method 11/04/23 15:45 36.7 C 79 18 127/77 98 Room Air 11/04/23 15:28 81 11/04/23 11:36 36.5 C 70 18 128/74 92 Room Air 11/04/23 10:26 36.5 C 77 18 147/90 H 97 Room Air 11/04/23 07:37 36.4 C L 76 18 137/78 96 Room Air 11/04/23 07:08 75 Medications Administered Current Inpatient Medications Acetaminophen (Acetaminophen 500 Mg Tab) 1,000 mg PO Q8 MEGHA Stop: 11/28/23 22:59 Last Admin: 11/04/23 13:19 Dose: 1,000 mg Amlodipine Besylate (Amlodipine Besylate 5 Mg Tab) 5 mg PO QAM MEGHA Stop: 12/02/23 08:59 Last Admin: 11/04/23 08:09 Dose: 5 mg Atorvastatin Calcium (Atorvastatin 40 Mg Tab) 80 mg PO HS MEGHA Stop: 11/28/23 20:59 Last Admin: 11/03/23 21:35 Dose: 80 mg Bisacodyl (Bisacodyl 5 Mg Tabec) 10 mg PO DAILY MEGHA Stop: 11/29/23 08:59 Last Admin: 11/04/23 08:12 Dose: 10 mg Dextrose (Dextrose 50% 50 Ml Syringe) 25 - 50 ml IV UD PRN; Protocol PRN Reason: Hypoglycemia Protocol Stop: 11/28/23 22:39 Famotidine (Famotidine 20 Mg Tab) 20 mg PO QAM MEGHA Stop: 11/30/23 08:59 Last Admin: 11/04/23 08:10 Dose: 20 mg Gabapentin (Gabapentin 300 Mg Cap) 300 mg PO TID MEGHA Stop: 12/01/23 08:59 Last Admin: 11/04/23 13:20 Dose: 300 mg Glucagon (Glucagon For Inj 1 Mg Vial) 1 mg SQ UD PRN; Protocol PRN Reason: Hypoglycemia Protocol Stop: 11/28/23 22:39 Glucose (Glucose 10 Tab/Tube) 4 - 8 tab PO UD PRN; Protocol PRN Reason: Hypoglycemia Treatment Stop: 11/28/23 22:39 Glucose (Glucose 40% Gel 15 Gm Tube) 15 - 30 gm PO UD PRN; Protocol PRN Reason: Hypoglycemia Protocol Stop: 11/28/23 22:39 Hydromorphone HCl (Hydromorphone Inj 0.5 Mg/0.5 Ml Syr) 0.5 mg IV Q3H PRN PRN Reason: Severe Pain (Scale 7, 8, 9,10) Stop: 11/12/23 22:39 Last Admin: 11/04/23 16:27 Dose: 0.5 mg Lisinopril (Lisinopril 10 Mg Tab) 10 mg PO QAM [facility] Stop: 11/29/23 08:59 Last Admin: 11/01/23 08:21 Dose: 10 mg Melatonin (Melatonin 3 Mg Tab) 3 mg PO HS PRN PRN Reason: Sleep Stop: 12/03/23 21:05 Last Admin: 11/03/23 21:34 Dose: 3 mg Miscellaneous (Carbohydrates For Hypoglycemia ) 15 - 30 gm PO UD PRN PRN Reason: Hypoglycemia Protocol Stop: 11/28/23 22:39 Ondansetron HCl (Ondansetron Inj 2 Mg/Ml 2 Ml Vial) 4 mg IV Q4H PRN PRN Reason: Nausea And Vomiting Stop: 11/28/23 22:39 Last Admin: 10/31/23 08:15 Dose: 4 mg Polyethylene Glycol (Polyethylene (Miralax) 17 Gm Pack) 17 gm PO DAILY [facility] Stop: 11/29/23 08:59 Last Admin: 11/04/23 08:09 Dose: 17 gm Propranolol HCl (Propranolol Hcl La 80 Mg Capcr) [facility] [place] Stop: 11/29/23 08:59 Last Admin: 11/04/23 08:08 Dose: 80 mg Sertraline HCl (Sertraline Hcl 100 Mg Tablet) 100 mg PO QAM [facility] Stop: 11/29/23 08:59 Last Admin: 11/04/23 08:08 Dose: 100 mg Topiramate (Topiramate 100 Mg Tab) 100 mg PO QPM [facility] Stop: 11/28/23 20:59 Last Admin: 11/03/23 21:35 Dose: 100 mg Tramadol HCl (Tramadol Hcl 50 Mg Tablet) 100 mg PO Q6H PRN PRN Reason: Moderate Pain (Scale 4, 5, 6) Stop: 12/03/23 11:09 Last Admin: 11/04/23 03:25 Dose: 100 mg Vitamin D (Cholecalciferol 125 Mcg (5,000 Units) Tab) 125 mcg PO QAM [facility] Stop: 11/29/23 08:59 Last Admin: 11/04/23 08:09 Dose: 125 mcg Warfarin Sodium (Warfarin Sod 2 Mg Tab) 2 mg PO MoWeFr@1600 [facility] Stop: 11/29/23 15:59 Last Admin: 10/30/23 15:15 Dose: 2 mg Warfarin Sodium (Warfarin Sod 5 Mg Tab) 5 mg PO DAILY@1600 [facility] Stop: 11/29/23 15:59 Last Admin: 10/31/23 15:08 Dose: 5 mg
[2023-11-05 07:15] LABS: Hematocrit (blood only) 36.9 % (42.0-52.0); Hemoglobin 11.9 g/dl (14.0-18.0); Mean Corpuscular Hemoglobin 29.9 pg (25.0-34.0); Mean Corpuscular Hgb Conc 32.2 g/dL (32.0-36.0); Mean Corpuscular Volume 92.7 fL (80.0-100.0); Mean Platelet Volume 11.6 fL (9.4-12.4); Platelet Count 166 K/uL (130-400); RDW Coefficient of Variation 14.8 % (11.5-14.5); RDW Standard Deviation 50.4 fL (36.4-46.3); Red Blood Count 3.98 M/uL (4.70-6.10); White Blood Count 8.96 K/ul (4.8-10.8)
[2023-11-05 07:38] LABS: Calcium 8.6 mg/dl (8.6-10.3); Creatinine Clr Calc Pharmacy 43.3 ml/min; Est GFR (African American) 42.6 ml/min; Est GFR (Non-African American) 36.7 ml/min; Potassium 5.1 mmol/L (3.5-5.1)
[2023-11-05 07:41] LABS: Basophils # (auto) 0.04 K/uL (0.00-0.20); Basophils % (auto) 0.4 %; Eosinophils % (auto) 1.1 %; Immature Granulocytes # (auto) 0.51 K/uL (0.01-0.20); Immature Granulocytes % (auto) 5.7 %; Lymphocytes # (auto) 1.36 K/uL (1.20-3.40); Lymphocytes % (auto) 15.2 %; Monocytes % (auto) 14.5 %; Neutrophils # (auto) 5.65 K/uL (1.40-6.50); Neutrophils % (auto) 63.1 %
[2023-11-05] MEDS ORDERED: MAGNESIUM SULFATE / D5W 1 GM/100 ML BAG IV ONE (08:06)
[2023-11-05] MEDS ORDERED: fentaNYL citrate PF 100 MCG/2 ML VIAL ONE (08:24)
[2023-11-05] MEDS ORDERED: DEXAMETHASONE SOD INJ 4 MG/ML VIAL ONE (08:24)
[2023-11-05] MEDS ORDERED: ROCURONIUM BROMIDE 10 MG/ML 5 ML VIAL IV ONE (08:24)
[2023-11-05] MEDS ORDERED: ONDANSETRON INJ 2 MG/ML 2 ML VIAL ONE (08:24)
[2023-11-05] MEDS ORDERED: LIDOCAINE 2% 2 ML VIAL/AMP(20MG/ML) INFIL ONE (08:24)
[2023-11-05] MEDS ORDERED: MIDAZOLAM HCL 1 MG/ML 2ML VIAL ONE (08:24)
[2023-11-05] MEDS ORDERED: PROPOFOL IV EMULSION 10 MG/ML 20 ML VIAL IV ONE (08:24)
[2023-11-05] MEDS ORDERED: SUGAMMADEX SODIUM 200 MG/2 ML VIAL IV ONE (08:25)
[2023-11-05] MEDS: LACTATED RINGER'S 1,000 ML IV SCH (08:50)
--- NOTE | 2023-11-05 08:59 | History & Physical Bridge Note ---
Date of Service November 05, 2023 History & Physical Bridge Note I have examined the patient, reviewed the History & Physical and in the interval since the performance of the History & Physical I have noted the following changes of clinical significance: no changes noted Removal of instrumentation L5-S1 decompression and fusion L4-L5
[2023-11-05] MEDS ORDERED: PROMETHAZINE HCL 6.25 MG in SODIUM CHLORIDE 0.9% 50 ML IV PRN (09:03)
[2023-11-05] MEDS ORDERED: ATROPINE SULFATE 0.1 MG/ML 10ML SYR IV PRN (09:03)
[2023-11-05] MEDS ORDERED: HYDROmorphone INJ 1 MG/ML SYRINGE IV PRN (09:03)
[2023-11-05] MEDS ORDERED: ONDANSETRON INJ 2 MG/ML 2 ML VIAL IV PRN ×2 (09:03→14:00)
[2023-11-05] MEDS ORDERED: ePHEDrine sulfate 50 MG/ML AMP IV PRN (09:03)
[2023-11-05] MEDS: ceFAZolin 2000MG 2,000 MG/15 ML SYR IV ONE (10:00)
[2023-11-05] MEDS: BUPIVACAINE/EPINEPHRINE 0.5% MPF 1:200,000 30 ML VIAL ONE (10:07)
[2023-11-05] MEDS: ceFAZolin 330 MG/ML 1 GM VIAL ONE (10:36)
[2023-11-05] MEDS: FLOSEAL HEMOSTATIC MATRIX 10ML TOP ONE (11:52)
--- NOTE | 2023-11-05 12:19 | Operative Report ---
Post Operative Report Pre & Post Diagnosis Operation Date: 11/05/23 09:05 Pre-Op Diagnosis: Lumbar radiculopathy Lumbar spinal stenosis with radiculopathy Post-Op Diagnosis: Same I identified the patient and participated in the time-out.: Yes Procedure Operation Date: 11/05/23 09:05 Actual Procedures #1 removal of posterior instrumentation L5-S1. #2 exploration of fusion L5-S1. #3 lumbar decompression bilateral medial facetectomies and foraminotomies L4-L5. #4 posterior spinal fusion L4-5 and #5 placement of posterior instrumentation L4-5. #6 interbody fusion L4-5. #7 placement Spira 13 x 26 mm x 2 at L4-5. #8 placement locally harvested morselized autograft and posterior gutters. #9 placement infuse collagen sponge combined with Koros bone graft in the posterior gutters and Morpheus bone graft interbody space. Surgeon Russell Connolly, DO Sack Lifter None Estimated Blood Loss 400 Findings See Below The patient is 5 foot 10 weighing over 107 kg with BMI in excess of 33. Patient's body was did contribute to significant technical difficulty with positioning exposure and the procedure itself adding at least 50% increased operative time. Specimens None Indications This is a 78-year-old male presents with chronic persistent radiculopathy and inability to ambulate and subsequently here for surgical intervention. Description of Procedure Patient was met with identified informed consent obtained. Patient was then taken to the operative suite underwent patient placed in a prone position on the Calixto table atop the Oneil frame. All bony prominences well-padded eyes inspected to ensure no external pressure placed upon them. This point lumbar spine was prepped and draped in a sterile fashion. Sharp dissection with the assistance of Bovie cautery from down to and exposing the lamina and transverse processes of L4 and instrumentation L5-S1 bilaterally. And then proceeded with the hardware bilaterally explore the fusion mass noting it to be mature and intact. Informed complete laminectomy L4 including bilateral medial fac etectomies and foraminotomies addressing severe spinal stenosis. Pedicle screws were then placed in L4-L5 bilaterally with assistance of fluoroscopy and appropriate sized davion placed. By way the transforaminal approach on the left a discectomy of L4-5 was performed endplates guided to subcortical bleeding bone and a 13 x 26 mm Spira cage filled Morpheus tapped in position. Then proceeded the right transforaminal region at L4-5 performed a discectomy endplates curetted to subcortical bleeding bone and a second 13 x 26 mm Spira cage with Morpheus bone graft tapped in position. The rods were then locked into final position bilaterally. The transverse processes of L4-L5 burred to subcortical bleeding bone. Infuse collagen sponge, with Koros and local autograft placed in the posterior lateral gutters. 15 round AVINASH drain inserted. The incision was then closed with 1 Vicryl the fascia 2-0 Vicryl subcutaneously and 4 Monocryl for final skin closure. Steri-Strips sterile dressing placed. Patient waken taken PACU stable condition. Please note spinal cord monitoring was utilized throughout the procedure no changes noted. I attest to the content of the Intraoperative Record and any orders documented therein. Any exceptions are noted below.
[2023-11-05] MEDS: fentaNYL citrate PF 100 MCG/2 ML VIAL IV PRN (13:12)
--- NOTE | 2023-11-05 13:23 | Fluoroscopy Report ---
FL lumbar spine 2-3V CLINICAL HISTORY: L4-L5 DECOMPRESSION AND FUSION L5-S1 HW REMOVAL TECHNIQUE: 2 views were obtained with the C-arm in the OR with the above procedure. Total fluoroscopy time was 15.7 seconds. Radiation dose was 11.57 mGy. Comparison: Comparison is made to lumbar spine radiographs 11/16/2023 FINDINGS/IMPRESSION: Intraoperative images were obtained of hardware removal and decompression/fusion of L4-L5. Please correlate with intraoperative fluoroscopy and operative report. ACT 112: Negative or not required by law. Electronically signed by: Moises Marrero M.D. 11/05/2023 1:22 PM
--- NOTE | 2023-11-05 13:31 | Anesthesiology Progress Note ---
Date of Service November 05, 2023 Anesthesia Post Procedure Vital Signs Vital Signs: Temp Pulse Pulse Pulse Resp BP BP 11/05/23 13:20 75 12 150/82 H 11/05/23 13:10 76 12 151/93 H 11/05/23 13:00 83 12 125/71 11/05/23 12:50 75 12 145/85 H 11/05/23 12:40 85 16 135/74 11/05/23 12:30 97.2 F L 78 14 150/78 H 11/05/23 08:41 98.2 F 75 20 129/81 11/05/23 08:08 97.5 F L 77 16 135/82 11/05/23 07:20 88 11/05/23 04:30 97.7 F 79 18 122/82 11/05/23 03:43 98.2 F 80 16 90/71 L 11/05/23 02:58 88 11/04/23 23:30 98.1 F 74 18 129/67 11/04/23 21:59 75 11/04/23 19:40 97.5 F L 78 18 119/72 11/04/23 17:00 11/04/23 15:45 98.1 F 79 18 127/77 11/04/23 15:28 81 Pulse Ox Pulse Ox O2 Del Method O2 Del Method O2 Flow Rate 11/05/23 13:20 97 Nasal Cannula 2 11/05/23 13:10 95 Nasal Cannula 2 11/05/23 13:00 95 Room Air 11/05/23 12:50 100 Nasal Cannula 2 11/05/23 12:40 98 Nasal Cannula 2 11/05/23 12:30 97 Nasal Cannula 2 11/05/23 08:41 96 Room Air 11/05/23 08:08 98 Room Air 11/05/23 07:20 11/05/23 04:30 99 Room Air 11/05/23 03:43 95 Room Air 11/05/23 02:58 11/04/23 23:30 96 Room Air 11/04/23 21:59 11/04/23 19:40 96 Room Air 11/04/23 17:00 94 Room Air 11/04/23 15:45 98 Room Air 11/04/23 15:28 Pain Intensity Lower Back: Pain Intensity: 7 Transfer of Care Handoff Completed per policy Notes Mental Status: alert / awake / arousable and participated in evaluation Patient Amnestic to Procedure: Yes Nausea / Vomiting: adequately controlled Pain: adequately controlled Airway Patency, RR, SpO2: stable & adequate BP & HR: stable & adequate Hydration State: stable & adequate Anesthetic Complications: no major complications apparent and Pt Satisfied with anesthetic care
[2023-11-05] MEDS ORDERED: bisacodyL 10 MG SUPP PR PRN (14:00)
[2023-11-05] MEDS ORDERED: LORazepam 0.5 MG TAB PO PRN (14:00)
[2023-11-05] MEDS ORDERED: ONDANSETRON 4 MG OD TAB PO PRN (14:00)
[2023-11-05] MEDS ORDERED: ACETAMINOPHEN 1,000 MG/100 ML VIAL IV PRN (14:00)
[2023-11-05] MEDS ORDERED: HYDROmorphone INJ 0.5 MG/0.5 ML SYR IV PRN (14:00)
[2023-11-05] MEDS ORDERED: METOCLOPRAMIDE HCL INJ 5 MG/ML 2 ML VIAL IV PRN (14:00)
[2023-11-05] MEDS ORDERED: PROMETHAZINE HCL 12.5 MG in SODIUM CHLORIDE 0.9% 50 ML IV PRN (14:00)
[2023-11-05] MEDS ORDERED: SOD PHOSPHATE/SOD BIPHOSPHATE ENEMA 132 ML BTL PR PRN (14:00)
[2023-11-05] MEDS ORDERED: NALOXONE HCL 0.4 MG/1 ML VIAL/CARP IV PRN (14:00)
[2023-11-05] MEDS ORDERED: ALUMINUM/MAGNESIUM SUSP 30 ML UDC PO PRN (14:00)
[2023-11-05] MEDS ORDERED: diphenhydrAMINE Capsule 25 MG CAP PO PRN (14:00)
[2023-11-05] MEDS ORDERED: DO NOT ADMINISTER FLU VACCINE PRN (14:00)
[2023-11-05] MEDS ORDERED: MAGNESIUM HYDROXIDE SUSP 30 ML UDC PO PRN (14:00)
[2023-11-05] MEDS ORDERED: hydrOXYzine HCl 25 MG TAB PO PRN (14:00)
[2023-11-05] MEDS ORDERED: DO NOT ADMINISTER PNEUMOCOCCAL VACCINE PRN (14:00)
[2023-11-05] MEDS ORDERED: FAMOTIDINE 20 MG TAB PO PRN (14:00)
[2023-11-05] MEDS ORDERED: LORazepam 0.5 MG in SYRINGE 0.25 ML IV PRN (14:00)
[2023-11-05] MEDS ORDERED: Nursing to Pharmacy Communication SCH (14:30)
[2023-11-05] MEDS: MAGNESIUM SULFATE / D5W 1 GM/100 ML BAG IV ONE (14:46)
[2023-11-05] MEDS: ACETAMINOPHEN 500 MG TAB PO PRN (14:47)
--- NOTE | 2023-11-05 15:56 | Hospitalist Progress Note ---
Date of Service November 05, 2023 Assessment & Plan (1) Intractable low back pain: Plan: 78-year-old male with PMH of CAD, A-fib, cardiac pacemaker in situ in 1999, HLD, HTN, CVA x 2, T2DM not on meds, DELANO, vitamin D deficiency, osteoporosis on Prolia presented to the ED 10/28 with worsening back pain that has been going on for 2 months. He denies any loss of bowel and bladder control. He had spinal surgery in late and again in 2009. Last surgery was by Dr. Connolly. He reports taking Tylenol for pain management at home. He denies any febrile illness or flulike illness. He is being managed for the following: Lumbar degenerative disc disease: Chronic L2 compression deformity with kyphoplasty Mild bilateral foraminal narrowing at L4-L5 with posterior disc osteophyte complex Patient coming in with progressive low back pain with radiation to LLE greater than RLE. Pain has been unbearable with current use of Tylenol at home Reviewed initial CT of the lumbar spine-MRI could not be done due to placement Currently pain is reasonably controlled with Tylenol/gabapentin/tramadol and hydromorphone Pain management on board, dexamethasone started Appreciate orthospine input and recommendation Will have CT myelogram to evaluate the nerve compression to have definitive management plan from the Has been off of Coumadin so that he can have the procedure on Saturday Pain has been increased-will increase tramadol to 100 mg every 6 hourly as needed Will continue other medications No bladder and or bowel problem Status post CT myelogram which revealed L4 radiculopathy and he will have surgical correction tomorrow by Dr. Connolly Will continue to hold anticoagulation at this time Status post L4-L5 decompression and fusion, L5-S1 hardware removal and spinal cord monitoring on 11/05/2023 He has been stable following the procedure Further management will depend on spine Ortho (2) Atrial fibrillation: Plan: Chronic A-fib status post pacemaker, CAD, chronic, stable. Continue lisinopril and propranolol. Anticoagulation for A-fib -see above. Coumadin regimen is alternating 7.5 mg and 5 mg at home. Continue statin. Coumadin has been on hold-will start intravenous heparin prior to surgery INR is 1.5 today and expected to go down further tomorrow for CT myelogram Will start intravenous heparin following that Status post lumbar myelogram and will not start any anticoagulation at this time Likely restart anticoagulation with heparin following surgery when appropriate Will asked Dr. Connolly when anticoagulation can be restarted and will start with heparin and or Coumadin (3) Type 2 diabetes mellitus with hemoglobin A1c goal of less than 7.0%: Plan: T2DM: Patient not on medication. Encourage diet and exercise. A1c of 6.7 in July 2023. Prior to that was greater than 7. A1c this admission 7.4. Repeat A1c in 3 months. Blood sugar remains stable Plan Other chronic medical conditions: Continue with/resume home meds as and when able. Hypertension hyperlipidemia-remains stable CKD stage III: Chronic, stable. DVT prophylaxis: Therapeutic INR CODE STATUS: DNR/DNI Dispo: Pain management evaluation ongoing, Ortho evaluation pending. PT/OT, CM to assist with DC planning. Discussed with the daughter in detail Admission and Anticipated Discharge Date Admission Date: October 29, 2023 Subjective 11/02/2023 The patient was seen and examined in medical telemetry unit in presence of the daughter He has been complaining of back pain with radiation to the left leg up to the ankle for months Denies any bladder and/or bowel problem Condition got worse recently and he came to the emergency room Pain seems to be controlled at rest with current pain regimen 11/03/2023 The patient was seen and examined in medical telemetry unit He has been having more pain in the back with radiation to the left leg Occasional shortness of breath without any chest pain and her palpitation Has been moving bowel 11/04/2023 The patient was seen and examined in medical telemetry unit He is a status post CT myelogram Reviewed by Dr. Connolly and will have surgery tomorrow 11/05/2023 The patient was seen and examined in the medical telemetry unit He is back from lumbar spinal procedure Still remains under the influence of anesthetics Denies any chest pain, palpitation or shortness of breath Review of Systems Review of Systems: All systems reviewed and are unremarkable except as noted Physical Exam Physical Exam: Lying in bed with acute distress due to back pain and pain in the left leg Constitutional: well developed, well nourished, + ill appearing and + obese Eyes: PERRL, conjunctivae normal, anicteric sclerae ENMT: external ear and nose normal, oropharynx normal Neck: trachea midline, no thyromegaly Respiratory: no respiratory distress Auscultation: lungs clear to auscultation bilaterally Cardiovascular: Rate/Rhythm: regular rate and regular rhythm; not tachycardic Heart Sounds: normal S1 and normal S2; no murmur Extremities: no edema Gastrointestinal (Abdomen): Inspection/Auscultation: normal bowel sounds; abdomen not distended Percussion/Palpation: abdomen soft; abdomen nontender Neurologic: normal touch/pain/proprioception and moves all extremities; no focal motor deficits Psychiatric: A+Ox3, euthymic affect Lymphatic: no cervical or axillary lymphadenopathy Results & Data Results & Data Vital Signs (Past 12 Hours) Vital Signs Temp Pulse Pulse Pulse Resp BP Pulse Ox 11/05/23 14:29 36.5 C 83 18 149/84 H 93 11/05/23 14:00 36.5 C 76 18 119/80 92 11/05/23 13:50 79 20 149/79 H 97 11/05/23 13:40 75 12 115/82 96 11/05/23 13:30 36.6 C 76 14 133/72 96 11/05/23 13:20 75 12 150/82 H 97 11/05/23 13:10 76 12 151/93 H 95 11/05/23 13:00 83 12 125/71 95 11/05/23 12:50 75 12 145/85 H 100 11/05/23 12:40 85 16 135/74 98 11/05/23 12:30 36.2 C L 78 14 150/78 H 97 11/05/23 08:41 36.8 C 75 20 129/81 96 11/05/23 08:08 36.4 C L 77 16 135/82 98 11/05/23 07:20 88 11/05/23 04:30 36.5 C 79 18 122/82 99 O2 Del Method O2 Flow Rate 11/05/23 14:29 Room Air 11/05/23 14:00 Room Air 11/05/23 13:50 Nasal Cannula 2 11/05/23 13:40 Nasal Cannula 2 11/05/23 13:30 Nasal Cannula 2 11/05/23 13:20 Nasal Cannula 2 11/05/23 13:10 Nasal Cannula 2 11/05/23 13:00 Room Air 11/05/23 12:50 Nasal Cannula 2 11/05/23 12:40 Nasal Cannula 2 11/05/23 12:30 Nasal Cannula 2 11/05/23 08:41 Room Air 11/05/23 08:08 Room Air 11/05/23 07:20 11/05/23 04:30 Room Air Laboratory Results Short CBC 11/05/23 Range/Units 06:57 WBC 8.96 (4.8-10.8) K/ul Hgb 11.9 L (14.0-18.0) g/dl Hct 36.9 L (42.0-52.0) % Plt Count 166 (130-400) K/uL BMP 11/05/23 06:57 Sodium 138 Potassium 5.1 Chloride 106 Carbon Dioxide 27 BUN 42 H Creatinine 1.75 H Glucose 105 H Calcium 8.6 Medications Administered Current Inpatient Medications Acetaminophen (Acetaminophen 500 Mg Tab) 1,000 mg PO Q8H PRN PRN Reason: MILD Pain Scale 1,2,3 & Pre PT Stop: 12/05/23 13:59 Last Admin: 11/05/23 14:47 Dose: 1,000 mg Al Hydrox/Mg Hydrox/Simethicone (Aluminum/Magnesium Susp 30 Ml Udc) 30 ml PO Q6H PRN PRN Reason: Dyspepsia Stop: 12/05/23 13:59 Amlodipine Besylate (Amlodipine Besylate 5 Mg Tab) 5 mg PO QAM MEGHA Stop: 12/02/23 08:59 Last Admin: 11/05/23 14:48 Dose: 5 mg Atorvastatin Calcium (Atorvastatin 40 Mg Tab) 80 mg PO HS MEGHA Stop: 11/28/23 20:59 Last Admin: 11/04/23 19:18 Dose: 80 mg Atropine Sulfate (Atropine Sulfate 0.1 Mg/Ml 10ml Syr) 0.5 mg IV Q1M PRN PRN Reason: PACU Use-HR<40 &/or Bradycardi Stop: 11/05/23 17:03 Bisacodyl (Bisacodyl 5 Mg Tabec) 10 mg PO DAILY MEGHA Stop: 11/29/23 08:59 Last Admin: 11/04/23 08:12 Dose: 10 mg Bisacodyl (Bisacodyl 10 Mg Supp) 10 mg PA DAILY PRN PRN Reason: Constipation Stop: 12/05/23 13:59 Dextrose (Dextrose 50% 50 Ml Syringe) 25 - 50 ml IV UD PRN; Protocol PRN Reason: Hypoglycemia Protocol Stop: 11/28/23 22:39 Diphenhydramine HCl (Diphenhydramine Capsule 25 Mg Cap) 25 mg PO Q6H PRN PRN Reason: Allergic Rhinitis/Insomnia Stop: 12/05/23 13:59 Ephedrine Sulfate (Ephedrine Sulfate 50 Mg/Ml Amp) 5 mg IV Q5M PRN PRN Reason: PACU Use Only-SBP<90 mmHg Stop: 11/05/23 17:03 Famotidine (Famotidine 20 Mg Tab) 20 mg PO QAM MEGHA Stop: 11/30/23 08:59 Last Admin: 11/05/23 14:47 Dose: 20 mg Famotidine (Famotidine 20 Mg Tab) 20 mg PO Q12H PRN PRN Reason: Dyspepsia Stop: 12/05/23 13:59 Fentanyl Citrate (Fentanyl Citrate Pf 100 Mcg/2 Ml Vial) 25 mcg IV Q5M PRN PRN Reason: PACU Use Only-Pain Stop: 11/05/23 17:03 Last Admin: 11/05/23 13:20 Dose: 25 mcg Gabapentin (Gabapentin 300 Mg Cap) 300 mg PO TID MEGHA Stop: 12/01/23 08:59 Last Admin: 11/05/23 15:10 Dose: Not Given Glucagon (Glucagon For Inj 1 Mg Vial) 1 mg SQ UD PRN; Protocol PRN Reason: Hypoglycemia Protocol Stop: 11/28/23 22:39 Glucose (Glucose 10 Tab/Tube) 4 - 8 tab PO UD PRN; Protocol PRN Reason: Hypoglycemia Treatment Stop: 11/28/23 22:39 Glucose (Glucose 40% Gel 15 Gm Tube) 15 - 30 gm PO UD PRN; Protocol PRN Reason: Hypoglycemia Protocol Stop: 11/28/23 22:39 Hydromorphone HCl (Hydromorphone Inj 1 Mg/Ml Syringe) 0.25 mg IV Q5M PRN PRN Reason: PACU Use Only-Pain Stop: 11/05/23 17:03 Hydromorphone HCl (Hydromorphone Inj 0.5 Mg/0.5 Ml Syr) 0.5 mg IV Q3H PRN PRN Reason: MODERATE Pain (Scale 4,5,6) & Pre PT Stop: 11/19/23 13:59 Hydromorphone HCl (Hydromorphone Inj 1 Mg/Ml Syringe) 1 mg IV Q3H PRN PRN Reason: SEVERE Pain (Scale 7,8,9,10) Stop: 11/19/23 13:59 Hydroxyzine HCl (Hydroxyzine Hcl 25 Mg Tab) 25 mg PO Q8H PRN PRN Reason: Anxiety Stop: 12/05/23 13:59 Lactated Ringer's (Lr) 1,000 mls @ 0 mls/hr IV .Q0M MEGHA Stop: 12/05/23 08:59 Last Admin: 11/05/23 08:50 Dose: 15 mls/hr Promethazine HCl 6.25 mg/ (Sodium Chloride) 50.25 mls @ 204 mls/hr IV ONCE PRN PRN Reason: PACU Use Only-Nausea/Vomiting Stop: 11/05/23 17:03 Sodium Chloride (Nss) 1,000 mls @ 100 mls/hr IV .Q10H MEGHA Stop: 12/05/23 13:59 Promethazine HCl 12.5 mg/ (Sodium Chloride) 50.5 mls @ 202 mls/hr IV Q6H PRN PRN Reason: Nausea &/or Vomiting Stop: 12/05/23 13:59 Acetaminophen (Ofirmev) 1,000 mg in 100 mls @ 400 mls/hr IV Q8H PRN PRN Reason: Pain Rating 1-3 & Pre PT Stop: 11/06/23 14:01 Cefazolin Sodium (Ancef 2000mg) 2,000 mg in 15 mls @ 3.75 mls/min IV Q8H MEGHA; Protocol Stop: 11/06/23 02:03 Lorazepam 0.5 mg/ Syringe 0.5 mls @ 2 mls/min IV Q8H PRN; Protocol PRN Reason: Sedation/Anxiety Stop: 12/05/23 13:59 Dexamethasone 6 mg/ Syringe 1.5 mls @ 1 mls/min IV DAILY MEGHA Stop: 11/08/23 09:02 Magnesium Sulfate/Dextrose (Magnesium Sulfate / D5w) 1 gm in 100 mls @ 50 mls/hr IV ONE ONE Stop: 11/05/23 16:29 Last Admin: 11/05/23 14:46 Dose: 50 mls/hr Influenza Virus Vaccine Quadrival (Do Not Administer Flu Vaccine) 1 each N/A PRN PRN PRN Reason: Notification Stop: 12/05/23 13:59 Lorazepam (Lorazepam 0.5 Mg Tab) 0.5 mg PO Q8H PRN PRN Reason: Sedation/Anxiety Stop: 12/05/23 13:59 Magnesium Hydroxide (Magnesium Hydroxide Susp 30 Ml Udc) 30 ml PO Q24H PRN PRN Reason: Constipation Stop: 12/05/23 13:59 Melatonin (Melatonin 3 Mg Tab) 3 mg PO HS PRN PRN Reason: Sleep Stop: 12/03/23 21:05 Last Admin: 11/03/23 21:34 Dose: 3 mg Metoclopramide HCl (Metoclopramide Hcl Inj 5 Mg/Ml 2 Ml Vial) 10 mg IV Q6H PRN PRN Reason: Nausea &/or Vomiting Stop: 12/05/23 13:59 Miscellaneous (Carbohydrates For Hypoglycemia ) 15 - 30 gm PO UD PRN PRN Reason: Hypoglycemia Protocol Stop: 11/28/23 22:39 Naloxone HCl (Naloxone Hcl 0.4 Mg/1 Ml Vial/Carp) 0.1 mg IV Q5M PRN PRN Reason: Oversedation/Resp depression Stop: 12/05/23 13:59 Ondansetron HCl (Ondansetron Inj 2 Mg/Ml 2 Ml Vial) 4 mg IV ONCE PRN PRN Reason: PACU Use Only-Nausea/Vomiting Stop: 11/05/23 17:03 Ondansetron HCl (Ondansetron Inj 2 Mg/Ml 2 Ml Vial) 4 mg IV Q6H PRN PRN Reason: Nausea &/or Vomiting Stop: 12/05/23 13:59 Ondansetron HCl (Ondansetron 4 Mg Od Tab) 4 mg PO Q6H PRN PRN Reason: Nausea Stop: 12/05/23 13:59 Oxycodone HCl (Oxycodone Hcl Ir 5 Mg Tab (Immediate Release)) 5 - 10 mg PO Q4H PRN PRN Reason: Pain & Pre PT Stop: 11/19/23 13:59 Pneumococcal Polyvalent Vaccine (Do Not Administer Pneumococcal Vaccine) 1 each N/A PRN PRN PRN Reason: Notification Stop: 12/05/23 13:59 Polyethylene Glycol (Polyethylene (Miralax) 17 Gm Pack) 17 gm PO Q6 MEGHA Stop: 12/06/23 05:59 Propranolol HCl (Propranolol Hcl La 80 Mg Capcr) 80 mg PO QAM MEGHA Stop: 11/29/23 08:59 Last Admin: 11/05/23 14:47 Dose: 80 mg Senna/Docusate Sodium (Docusate Sodium/Senna 50/8.6mg Tab) 2 tab PO HS [facility] Stop: 12/05/23 20:59 Sertraline HCl (Sertraline Hcl 100 Mg Tablet) 100 mg PO QAM [facility] Stop: 11/29/23 08:59 Last Admin: 11/05/23 14:48 Dose: 100 mg Sodium Biphosphate/Sodium Phosphate (Sod Phosphate/Sod Biphosphate Enema 132 Ml Btl) 132 ml PA ONE PRN PRN Reason: Constipation Stop: 12/05/23 13:59 Topiramate (Topiramate 100 Mg Tab) 100 mg PO QPM [facility] Stop: 11/28/23 20:59 Last Admin: 11/04/23 19:18 Dose: 100 mg Tramadol HCl (Tramadol Hcl 50 Mg Tablet) 50 - 100 mg PO Q4H PRN PRN Reason: Moderate-Severe pain & Pre PT Stop: 12/05/23 13:59 Vitamin D (Cholecalciferol 125 Mcg (5,000 Units) Tab) 125 mcg PO QAM [facility] Stop: 11/29/23 08:59 Last Admin: 11/05/23 14:47 Dose: 125 mcg
[2023-11-05] MEDS: SODIUM CHLORIDE 0.9% 1,000 ML IV SCH (16:58)
[2023-11-05] MEDS: ceFAZolin 2000MG 2,000 MG/15 ML SYR IV SCH (18:35)
[2023-11-05] MEDS: oxyCODONE HCL IR 5 MG TAB (IMMEDIATE RELEASE) PO PRN (19:51)
[2023-11-05] MEDS: DOCUSATE SODIUM/SENNA 50/8.6MG TAB PO SCH (20:13)
[2023-11-06] MEDS: POLYETHYLENE (MIRALAX) 17 GM PACK PO SCH (05:39)
[2023-11-06 06:58] LABS: Basophils # (auto) 0.03 K/uL (0.00-0.20); Basophils % (auto) 0.2 %; Eosinophils # (auto) 0.02 K/uL (0.00-0.50); Eosinophils % (auto) 0.1 %; Hematocrit (blood only) 32.2 % (42.0-52.0); Hemoglobin 10.6 g/dl (14.0-18.0); Immature Granulocytes # (auto) 0.39 K/uL (0.01-0.20); Immature Granulocytes % (auto) 2.7 %; Lymphocytes % (auto) 8.4 %; Mean Corpuscular Hemoglobin 29.7 pg (25.0-34.0); Mean Corpuscular Hgb Conc 32.9 g/dL (32.0-36.0); Mean Corpuscular Volume 90.2 fL (80.0-100.0); Mean Platelet Volume 11.6 fL (9.4-12.4); Monocytes # (auto) 2.04 K/uL (0.11-0.59); Monocytes % (auto) 14.3 %; Neutrophils # (auto) 10.61 K/uL (1.40-6.50); Neutrophils % (auto) 74.3 %; Platelet Count 152 K/uL (130-400); RDW Coefficient of Variation 14.5 % (11.5-14.5); RDW Standard Deviation 47.4 fL (36.4-46.3); Red Blood Count 3.57 M/uL (4.70-6.10); White Blood Count 14.29 K/ul (4.8-10.8)
[2023-11-06 07:55] LABS: Calcium 8.3 mg/dl (8.6-10.3); Potassium 4.8 mmol/L (3.5-5.1)
[2023-11-06 08:00] LABS: BUN Creatinine Ratio 24.3 (10-20); Est GFR (African American) 53.9 ml/min; Est GFR (Non-African American) 46.5 ml/min
[2023-11-06] MEDS: dexAMETHasone 6 MG in SYRINGE 0 ML IV SCH (08:06)
[2023-11-06] MEDS: HYDROmorphone INJ 1 MG/ML SYRINGE IV PRN (09:22)
--- NOTE | 2023-11-06 12:50 | Hospitalist Progress Note ---
Date of Service November 06, 2023 Assessment & Plan (1) Intractable low back pain: Plan: 78-year-old male with PMH of CAD, A-fib, cardiac pacemaker in situ in 1999, HLD, HTN, CVA x 2, T2DM not on meds, DELANO, vitamin D deficiency, osteoporosis on Prolia presented to the ED 10/28 with worsening back pain that has been going on for 2 months. He denies any loss of bowel and bladder control. He had spinal surgery in late and again in 2009. Last surgery was by Dr. Connolly. He reports taking Tylenol for pain management at home. He denies any febrile illness or flulike illness. He is being managed for the following: Lumbar degenerative disc disease: Chronic L2 compression deformity with kyphoplasty Mild bilateral foraminal narrowing at L4-L5 with posterior disc osteophyte complex Patient coming in with progressive low back pain with radiation to LLE greater than RLE. Pain has been unbearable with current use of Tylenol at home Reviewed initial CT of the lumbar spine-MRI could not be done due to placement Currently pain is reasonably controlled with Tylenol/gabapentin/tramadol and hydromorphone Pain management on board, dexamethasone started Appreciate orthospine input and recommendation Will have CT myelogram to evaluate the nerve compression to have definitive management plan from the Has been off of Coumadin so that he can have the procedure on Saturday Pain has been increased-will increase tramadol to 100 mg every 6 hourly as needed Will continue other medications No bladder and or bowel problem Status post CT myelogram which revealed L4 radiculopathy and he will have surgical correction tomorrow by Dr. Connolly Will continue to hold anticoagulation at this time Increasing pain during ambulation with shakiness No neurological abnormality on examination Status post L4-L5 decompression and fusion, L5-S1 hardware removal and spinal cord monitoring on 11/05/2023 He has been stable following the procedure Further management will depend on spine Ortho Could not tolerate PT and OT this morning due to increasing pain and shakiness without any neuro abnormality (2) Atrial fibrillation: Plan: Chronic A-fib status post pacemaker, CAD, chronic, stable. Continue lisinopril and propranolol. Anticoagulation for A-fib -see above. Coumadin regimen is alternating 7.5 mg and 5 mg at home. Continue statin. Coumadin has been on hold-will start intravenous heparin prior to surgery INR is 1.5 today and expected to go down further tomorrow for CT myelogram Will start intravenous heparin following that Status post lumbar myelogram and will not start any anticoagulation at this time Likely restart anticoagulation with heparin following surgery when appropriate Will asked Dr. Connolly when anticoagulation can be restarted and will start with heparin and or Coumadin Will start heparin on Saturday as per recommendation from the primary. (3) Type 2 diabetes mellitus with hemoglobin A1c goal of less than 7.0%: Plan: T2DM: Patient not on medication. Encourage diet and exercise. A1c of 6.7 in July 2023. Prior to that was greater than 7. A1c this admission 7.4. Repeat A1c in 3 months. Blood sugar remains stable (4) Lumbar radiculopathy: Plan Other chronic medical conditions: Continue with/resume home meds as and when able. Hypertension hyperlipidemia-remains stable CKD stage III: Chronic, stable. DVT prophylaxis: Therapeutic INR CODE STATUS: DNR/DNI Dispo: Pain management evaluation ongoing, Ortho evaluation pending. PT/OT, CM to assist with DC planning. Discussed with the daughter in detail Admission and Anticipated Discharge Date Admission Date: October 29, 2023 Subjective 11/02/2023 The patient was seen and examined in medical telemetry unit in presence of the daughter He has been complaining of back pain with radiation to the left leg up to the ankle for months Denies any bladder and/or bowel problem Condition got worse recently and he came to the emergency room Pain seems to be controlled at rest with current pain regimen 11/03/2023 The patient was seen and examined in medical telemetry unit He has been having more pain in the back with radiation to the left leg Occasional shortness of breath without any chest pain and her palpitation Has been moving bowel 11/04/2023 The patient was seen and examined in medical telemetry unit He is a status post CT myelogram Reviewed by Dr. Connolly and will have surgery tomorrow 11/05/2023 The patient was seen and examined in the medical telemetry unit He is back from lumbar spinal procedure Still remains under the influence of anesthetics Denies any chest pain, palpitation or shortness of breath 11/06/2023 The patient was seen and examined in medical telemetry unit He was noted to be shaky and unwell during physical therapy likely secondary to increasing pain and nerve irritation Remains hemodynamically stable and without any other neurological symptoms or signs Review of Systems Review of Systems: All systems reviewed and are unremarkable except as noted Physical Exam Physical Exam: Lying in bed with acute distress due to back pain and pain in the left leg Constitutional: well developed, well nourished, + ill appearing and + obese Eyes: PERRL, conjunctivae normal, anicteric sclerae ENMT: external ear and nose normal, oropharynx normal Neck: trachea midline, no thyromegaly Respiratory: no respiratory distress Auscultation: lungs clear to auscultation bilaterally Cardiovascular: Rate/Rhythm: regular rate and regular rhythm; not tachycardic Heart Sounds: normal S1 and normal S2; no murmur Extremities: no edema Gastrointestinal (Abdomen): Inspection/Auscultation: normal bowel sounds; abdomen not distended Percussion/Palpation: abdomen soft; abdomen nontender Musculoskeletal: No acute arthritis involving any of the joint Neurologic: normal touch/pain/proprioception and moves all extremities; no focal motor deficits Psychiatric: A+Ox3, euthymic affect Lymphatic: no cervical or axillary lymphadenopathy Results & Data Results & Data Vital Signs (Past 12 Hours) Vital Signs Temp Pulse Pulse Resp BP BP Pulse Ox 11/06/23 11:27 36.6 C 75 16 97/62 L 96 11/06/23 09:26 79 11/06/23 07:54 36.8 C 76 18 124/70 93 11/06/23 02:24 36.6 C 76 18 107/53 L 98 O2 Del Method 11/06/23 11:27 Room Air 11/06/23 09:26 11/06/23 07:54 Room Air 11/06/23 02:24 Room Air Laboratory Results Short CBC 11/06/23 Range/Units 06:41 WBC 14.29 H (4.8-10.8) K/ul Hgb 10.6 L (14.0-18.0) g/dl Hct 32.2 L (42.0-52.0) % Plt Count 152 (130-400) K/uL BMP 11/06/23 06:41 Sodium 138 Potassium 4.8 Chloride 108 H Carbon Dioxide 25 BUN 35 H Creatinine 1.44 H D Glucose 127 H Calcium 8.3 L Medications Administered Current Inpatient Medications Acetaminophen (Acetaminophen 500 Mg Tab) 1,000 mg PO Q8H PRN PRN Reason: MILD Pain Scale 1,2,3 & Pre PT Stop: 12/05/23 13:59 Last Admin: 11/05/23 14:47 Dose: 1,000 mg Al Hydrox/Mg Hydrox/Simethicone (Aluminum/Magnesium Susp 30 Ml Udc) 30 ml PO Q6H PRN PRN Reason: Dyspepsia Stop: 12/05/23 13:59 Amlodipine Besylate (Amlodipine Besylate 5 Mg Tab) 5 mg PO QAM [facility] Stop: 12/02/23 08:59 Last Admin: 11/06/23 08:30 Dose: 5 mg Atorvastatin Calcium (Atorvastatin 40 Mg Tab) 80 mg PO HS [facility] Stop: 11/28/23 20:59 Last Admin: 11/05/23 19:47 Dose: 80 mg Bisacodyl (Bisacodyl 5 Mg Tabec) 10 mg PO DAILY [facility] Stop: 11/29/23 08:59 Last Admin: 11/06/23 08:05 Dose: 10 mg Bisacodyl (Bisacodyl 10 Mg Supp) 10 mg MA DAILY PRN PRN Reason: Constipation Stop: 12/05/23 13:59 Dextrose (Dextrose 50% 50 Ml Syringe) 25 - 50 ml IV UD PRN; Protocol PRN Reason: Hypoglycemia Protocol Stop: 11/28/23 22:39 Diphenhydramine HCl (Diphenhydramine Capsule 25 Mg Cap) 25 mg PO Q6H PRN PRN Reason: Allergic Rhinitis/Insomnia Stop: 12/05/23 13:59 Famotidine (Famotidine 20 Mg Tab) 20 mg PO QAM [facility] Stop: 11/30/23 08:59 Last Admin: 11/06/23 08:06 Dose: 20 mg Famotidine (Famotidine 20 Mg Tab) 20 mg PO Q12H PRN PRN Reason: Dyspepsia Stop: 12/05/23 13:59 Gabapentin (Gabapentin 300 Mg Cap) 300 mg PO TID [facility] Stop: 12/01/23 08:59 Last Admin: 11/06/23 08:06 Dose: 300 mg Glucagon (Glucagon For Inj 1 Mg Vial) 1 mg SQ UD PRN; Protocol PRN Reason: Hypoglycemia Protocol Stop: 11/28/23 22:39 Glucose (Glucose 10 Tab/Tube) 4 - 8 tab PO UD PRN; Protocol PRN Reason: Hypoglycemia Treatment Stop: 11/28/23 22:39 Glucose (Glucose 40% Gel 15 Gm Tube) 15 - 30 gm PO UD PRN; Protocol PRN Reason: Hypoglycemia Protocol Stop: 11/28/23 22:39 Hydromorphone HCl (Hydromorphone Inj 0.5 Mg/0.5 Ml Syr) 0.5 mg IV Q3H PRN PRN Reason: MODERATE Pain (Scale 4,5,6) & Pre PT Stop: 11/19/23 13:59 Hydromorphone HCl (Hydromorphone Inj 1 Mg/Ml Syringe) 1 mg IV Q3H PRN PRN Reason: SEVERE Pain (Scale 7,8,9,10) Stop: 11/19/23 13:59 Last Admin: 11/06/23 09:22 Dose: 1 mg Hydroxyzine HCl (Hydroxyzine Hcl 25 Mg Tab) 25 mg PO Q8H PRN PRN Reason: Anxiety Stop: 12/05/23 13:59 Lactated Ringer's (Lr) 1,000 mls @ 0 mls/hr IV .Q0M [facility] Stop: 12/05/23 08:59 Last Infusion: 11/06/23 06:55 Dose: Infused Promethazine HCl 12.5 mg/ (Sodium Chloride) 50.5 mls @ 202 mls/hr IV Q6H PRN PRN Reason: Nausea &/or Vomiting Stop: 12/05/23 13:59 Acetaminophen (Ofirmev) 1,000 mg in 100 mls @ 400 mls/hr IV Q8H PRN PRN Reason: Pain Rating 1-3 & Pre PT Stop: 11/06/23 14:01 Lorazepam 0.5 mg/ Syringe 0.5 mls @ 2 mls/min IV Q8H PRN; Protocol PRN Reason: Sedation/Anxiety Stop: 12/05/23 13:59 Dexamethasone 6 mg/ Syringe 1.5 mls @ 1 mls/min IV DAILY [facility] Stop: 11/08/23 09:02 Last Admin: 11/06/23 08:06 Dose: 1 mls/min Influenza Virus Vaccine Quadrival (Do Not Administer Flu Vaccine) 1 each N/A PRN PRN PRN Reason: Notification Stop: 12/05/23 13:59 Lorazepam (Lorazepam 0.5 Mg Tab) 0.5 mg PO Q8H PRN PRN Reason: Sedation/Anxiety Stop: 12/05/23 13:59 Magnesium Hydroxide (Magnesium Hydroxide Susp 30 Ml Udc) 30 ml PO Q24H PRN PRN Reason: Constipation Stop: 12/05/23 13:59 Melatonin (Melatonin 3 Mg Tab) 3 mg PO HS PRN PRN Reason: Sleep Stop: 12/03/23 21:05 Last Admin: 11/03/23 21:34 Dose: 3 mg Metoclopramide HCl (Metoclopramide Hcl Inj 5 Mg/Ml 2 Ml Vial) 10 mg IV Q6H PRN PRN Reason: Nausea &/or Vomiting Stop: 12/05/23 13:59 Miscellaneous (Carbohydrates For Hypoglycemia ) 15 - 30 gm PO UD PRN PRN Reason: Hypoglycemia Protocol Stop: 11/28/23 22:39 Naloxone HCl (Naloxone Hcl 0.4 Mg/1 Ml Vial/Carp) 0.1 mg IV Q5M PRN PRN Reason: Oversedation/Resp depression Stop: 12/05/23 13:59 Ondansetron HCl (Ondansetron Inj 2 Mg/Ml 2 Ml Vial) 4 mg IV Q6H PRN PRN Reason: Nausea &/or Vomiting Stop: 12/05/23 13:59 Ondansetron HCl (Ondansetron 4 Mg Od Tab) 4 mg PO Q6H PRN PRN Reason: Nausea Stop: 12/05/23 13:59 Oxycodone HCl (Oxycodone Hcl Ir 5 Mg Tab (Immediate Release)) 5 - 10 mg PO Q4H PRN PRN Reason: Pain & Pre PT Stop: 11/19/23 13:59 Last Admin: 11/06/23 12:34 Dose: 10 mg Pneumococcal Polyvalent Vaccine (Do Not Administer Pneumococcal Vaccine) 1 each N/A PRN PRN PRN Reason: Notification Stop: 12/05/23 13:59 Polyethylene Glycol (Polyethylene (Miralax) 17 Gm Pack) 17 gm PO Q6 [facility] Stop: 12/06/23 05:59 Last Admin: 11/06/23 12:34 Dose: 17 gm Propranolol HCl (Propranolol Hcl La 80 Mg Capcr) 80 mg PO QAM [facility] Stop: 11/29/23 08:59 Last Admin: 11/06/23 08:30 Dose: 80 mg Senna/Docusate Sodium (Docusate Sodium/Senna 50/8.6mg Tab) 2 tab PO HS [facility] Stop: 12/05/23 20:59 Last Admin: 11/05/23 20:13 Dose: 2 tab Sertraline HCl (Sertraline Hcl 100 Mg Tablet) 100 mg PO QAM [facility] Stop: 11/29/23 08:59 Last Admin: 11/06/23 08:06 Dose: 100 mg Sodium Biphosphate/Sodium Phosphate (Sod Phosphate/Sod Biphosphate Enema 132 Ml Btl) 132 ml MA ONE PRN PRN Reason: Constipation Stop: 12/05/23 13:59 Topiramate (Topiramate 100 Mg Tab) 100 mg PO QPM [facility] Stop: 11/28/23 20:59 Last Admin: 11/05/23 19:48 Dose: 100 mg Tramadol HCl (Tramadol Hcl 50 Mg Tablet) 50 - 100 mg PO Q4H PRN PRN Reason: Moderate-Severe pain & Pre PT Stop: 12/05/23 13:59 Vitamin D (Cholecalciferol 125 Mcg (5,000 Units) Tab) 125 mcg PO QAM [facility] Stop: 11/29/23 08:59 Last Admin: 11/06/23 08:07 Dose: 125 mcg
--- NOTE | 2023-11-06 13:13 | Orthopedic Progress Note ---
Date of Service November 06, 2023 Assessment & Plan (1) Lumbar degenerative disc disease: Plan: Assessment status post lumbar decompression fusion. Plan at this time he is up and ambulating. His leg symptoms are improving. Will continue physical therapy monitor his AVINASH output. Hopefully discharge over the next few days. Admission and Anticipated Discharge Date Admission Date: October 29, 2023 Subjective Back pain controlled leg symptoms markedly improved Physical Exam Physical Exam: Patient is up and ambulating. Is good strength testing. Appears comfortable. Results & Data Vital Signs (Past 12 Hours) Vital Signs Temp Pulse Pulse Resp BP BP Pulse Ox 11/06/23 11:27 36.6 C 75 16 97/62 L 96 11/06/23 09:26 79 11/06/23 07:54 36.8 C 76 18 124/70 93 11/06/23 02:24 36.6 C 76 18 107/53 L 98 O2 Del Method 11/06/23 11:27 Room Air 11/06/23 09:26 11/06/23 07:54 Room Air 11/06/23 02:24 Room Air Queries Orthopedic Spine Obesity: Yes
[2023-11-06] MEDS: traMADol HCL 50 MG TABLET PO PRN (14:45)
[2023-11-07 08:56] LABS: BUN Creatinine Ratio 24.2 (10-20); Calcium 8.4 mg/dl (8.6-10.3); Creatinine Clr Calc Pharmacy 47.2 ml/min; Est GFR (African American) 48.6 ml/min; Est GFR (Non-African American) 41.9 ml/min; Potassium 4.9 mmol/L (3.5-5.1)
--- NOTE | 2023-11-07 10:43 | Orthopedic Progress Note ---
Date of Service November 07, 2023 Assessment & Plan (1) Neurogenic claudication due to lumbar spinal stenosis: Plan: Assessment status post lumbar decompression fusion but plan at this time he has progressed appropriately. He is stable for discharge from an orthopedic standpoint. He may begin his Coumadin today. Admission and Anticipated Discharge Date Admission Date: October 29, 2023 Subjective Back pain is controlled leg symptoms markedly improved Physical Exam Physical Exam: Patient is in the chair at the bedside. Is consented testing. Results & Data Vital Signs (Past 12 Hours) Vital Signs Temp Pulse Pulse Resp BP Pulse Ox Pulse Ox 11/07/23 09:25 75 11/07/23 09:00 99 11/07/23 07:40 36.4 C L 79 20 114/76 99 11/07/23 03:26 36.4 C L 76 18 128/79 100 O2 Del Method O2 Del Method 11/07/23 09:25 11/07/23 09:00 Room Air 11/07/23 07:40 Room Air 11/07/23 03:26 Room Air Queries Orthopedic Spine Obesity: Yes
--- NOTE | 2023-11-07 12:47 | Hospitalist Progress Note ---
Date of Service November 07, 2023 Assessment & Plan (1) Intractable low back pain: Plan: 78-year-old male with PMH of CAD, A-fib, cardiac pacemaker in situ in 1999, HLD, HTN, CVA x 2, T2DM not on meds, DELANO, vitamin D deficiency, osteoporosis on Prolia presented to the ED 10/28 with worsening back pain that has been going on for 2 months. He denies any loss of bowel and bladder control. He had spinal surgery in late and again in 2009. Last surgery was by Dr. Connolly. He reports taking Tylenol for pain management at home. He denies any febrile illness or flulike illness. He is being managed for the following: Lumbar degenerative disc disease: Chronic L2 compression deformity with kyphoplasty Mild bilateral foraminal narrowing at L4-L5 with posterior disc osteophyte complex Patient coming in with progressive low back pain with radiation to LLE greater than RLE. Pain has been unbearable with current use of Tylenol at home Reviewed initial CT of the lumbar spine-MRI could not be done due to placement Currently pain is reasonably controlled with Tylenol/gabapentin/tramadol and hydromorphone Pain management on board, dexamethasone started Appreciate orthospine input and recommendation Will have CT myelogram to evaluate the nerve compression to have definitive management plan from the Has been off of Coumadin so that he can have the procedure on Saturday Pain has been increased-will increase tramadol to 100 mg every 6 hourly as needed Will continue other medications No bladder and or bowel problem Status post CT myelogram which revealed L4 radiculopathy and he will have surgical correction tomorrow by Dr. Connolly Remains stable today without any significant symptoms Status post L4-L5 decompression and fusion, L5-S1 hardware removal and spinal cord monitoring on 11/05/2023 He has been stable following the procedure Further management will depend on spine Ortho Could not tolerate PT and OT this morning due to increasing pain and shakiness without any neuro abnormality Has had physical therapy and recommended home Was seen by orthospine today and they cleared him to go home Will start his Coumadin from today as per Ortho (2) Atrial fibrillation: Plan: Chronic A-fib status post pacemaker, CAD, chronic, stable. Continue lisinopril and propranolol. Anticoagulation for A-fib -see above. Coumadin regimen is alternating 7.5 mg and 5 mg at home. Continue statin. Coumadin has been on hold-will start intravenous heparin prior to surgery INR is 1.5 today and expected to go down further tomorrow for CT myelogram Will start intravenous heparin following that Status post lumbar myelogram and will not start any anticoagulation at this time Likely restart anticoagulation with heparin following surgery when appropriate Will asked Dr. Connolly when anticoagulation can be restarted and will start with heparin and or Coumadin Will be discharged home today and will start Coumadin from this evening (3) Type 2 diabetes mellitus with hemoglobin A1c goal of less than 7.0%: Plan: T2DM: Patient not on medication. Encourage diet and exercise. A1c of 6.7 in July 2023. Prior to that was greater than 7. A1c this admission 7.4. Repeat A1c in 3 months. Blood sugar remains stable (4) Lumbar radiculopathy: Plan Other chronic medical conditions: Continue with/resume home meds as and when able. Hypertension hyperlipidemia-remains stable CKD stage III: Chronic, stable. DVT prophylaxis: Therapeutic INR CODE STATUS: DNR/DNI Dispo: Pain management evaluation ongoing, Ortho evaluation pending. PT/OT, CM to assist with DC planning. Discussed with the daughter in detail Will discharge home this afternoon Admission and Anticipated Discharge Date Admission Date: October 29, 2023 Subjective 11/02/2023 The patient was seen and examined in medical telemetry unit in presence of the daughter He has been complaining of back pain with radiation to the left leg up to the ankle for months Denies any bladder and/or bowel problem Condition got worse recently and he came to the emergency room Pain seems to be controlled at rest with current pain regimen 11/03/2023 The patient was seen and examined in medical telemetry unit He has been having more pain in the back with radiation to the left leg Occasional shortness of breath without any chest pain and her palpitation Has been moving bowel 11/04/2023 The patient was seen and examined in medical telemetry unit He is a status post CT myelogram Reviewed by Dr. Connolly and will have surgery tomorrow 11/05/2023 The patient was seen and examined in the medical telemetry unit He is back from lumbar spinal procedure Still remains under the influence of anesthetics Denies any chest pain, palpitation or shortness of breath 11/06/2023 The patient was seen and examined in medical telemetry unit He was noted to be shaky and unwell during physical therapy likely secondary to increasing pain and nerve irritation Remains hemodynamically stable and without any other neurological symptoms or signs 11/07/2023 The patient was seen and examined in medical telemetry unit He has been feeling much better today and has had good physical therapy He was seen by orthospine and advised that he can go home this afternoon He denies any other significant symptoms except some back pain without radiation Review of Systems Review of Systems: All systems reviewed and are unremarkable except as noted below Physical Exam Physical Exam: Lying in bed with acute distress due to back pain and pain in the left leg Constitutional: well developed, well nourished, + ill appearing and + obese Eyes: PERRL, conjunctivae normal, anicteric sclerae ENMT: external ear and nose normal, oropharynx normal Neck: trachea midline, no thyromegaly Respiratory: no respiratory distress Auscultation: lungs clear to auscultation bilaterally Cardiovascular: Rate/Rhythm: regular rate and regular rhythm; not tachycardic Heart Sounds: normal S1 and normal S2; no murmur Extremities: no edema Gastrointestinal (Abdomen): Inspection/Auscultation: normal bowel sounds; abdomen not distended Percussion/Palpation: abdomen soft; abdomen nontender Musculoskeletal: Localized back tenderness without radiation. No acute arthritis involving any of the joint Neurologic: normal touch/pain/proprioception and moves all extremities; no focal motor deficits Psychiatric: A+Ox3, euthymic affect Lymphatic: no cervical or axillary lymphadenopathy Results & Data Results & Data Vital Signs (Past 12 Hours) Vital Signs Temp Pulse Pulse Resp BP Pulse Ox Pulse Ox 11/07/23 11:24 36.6 C 76 20 109/72 93 11/07/23 09:25 75 11/07/23 09:00 99 11/07/23 07:40 36.4 C L 79 20 114/76 99 11/07/23 03:26 36.4 C L 76 18 128/79 100 O2 Del Method O2 Del Method 11/07/23 11:24 Room Air 11/07/23 09:25 11/07/23 09:00 Room Air 11/07/23 07:40 Room Air 11/07/23 03:26 Room Air Laboratory Results BMP 11/07/23 08:01 Sodium 138 Potassium 4.9 Chloride 108 H Carbon Dioxide 26 BUN 38 H Creatinine 1.57 H Glucose 119 H Calcium 8.4 L Medications Administered Current Inpatient Medications Acetaminophen (Acetaminophen 500 Mg Tab) 1,000 mg PO Q8H PRN PRN Reason: MILD Pain Scale 1,2,3 & Pre PT Stop: 12/05/23 13:59 Last Admin: 11/06/23 14:45 Dose: 1,000 mg Al Hydrox/Mg Hydrox/Simethicone (Aluminum/Magnesium Susp 30 Ml Udc) 30 ml PO Q6H PRN PRN Reason: Dyspepsia Stop: 12/05/23 13:59 Amlodipine Besylate (Amlodipine Besylate 5 Mg Tab) 5 mg PO QAM [facility] Stop: 12/02/23 08:59 Last Admin: 11/07/23 08:22 Dose: 5 mg Atorvastatin Calcium (Atorvastatin 40 Mg Tab) 80 mg PO HS [facility] Stop: 11/28/23 20:59 Last Admin: 11/06/23 20:03 Dose: 80 mg Bisacodyl (Bisacodyl 5 Mg Tabec) 10 mg PO DAILY [facility] Stop: 11/29/23 08:59 Last Admin: 11/07/23 08:25 Dose: Not Given Bisacodyl (Bisacodyl 10 Mg Supp) 10 mg MN DAILY PRN PRN Reason: Constipation Stop: 12/05/23 13:59 Dextrose (Dextrose 50% 50 Ml Syringe) 25 - 50 ml IV UD PRN; Protocol PRN Reason: Hypoglycemia Protocol Stop: 11/28/23 22:39 Diphenhydramine HCl (Diphenhydramine Capsule 25 Mg Cap) 25 mg PO Q6H PRN PRN Reason: Allergic Rhinitis/Insomnia Stop: 12/05/23 13:59 Famotidine (Famotidine 20 Mg Tab) 20 mg PO QAM [facility] Stop: 11/30/23 08:59 Last Admin: 11/07/23 08:22 Dose: 20 mg Famotidine (Famotidine 20 Mg Tab) 20 mg PO Q12H PRN PRN Reason: Dyspepsia Stop: 12/05/23 13:59 Gabapentin (Gabapentin 300 Mg Cap) 300 mg PO TID [facility] Stop: 12/01/23 08:59 Last Admin: 11/07/23 08:22 Dose: 300 mg Glucagon (Glucagon For Inj 1 Mg Vial) 1 mg SQ UD PRN; Protocol PRN Reason: Hypoglycemia Protocol Stop: 11/28/23 22:39 Glucose (Glucose 10 Tab/Tube) 4 - 8 tab PO UD PRN; Protocol PRN Reason: Hypoglycemia Treatment Stop: 11/28/23 22:39 Glucose (Glucose 40% Gel 15 Gm Tube) 15 - 30 gm PO UD PRN; Protocol PRN Reason: Hypoglycemia Protocol Stop: 11/28/23 22:39 Hydromorphone HCl (Hydromorphone Inj 0.5 Mg/0.5 Ml Syr) 0.5 mg IV Q3H PRN PRN Reason: MODERATE Pain (Scale 4,5,6) & Pre PT Stop: 11/19/23 13:59 Hydromorphone HCl (Hydromorphone Inj 1 Mg/Ml Syringe) 1 mg IV Q3H PRN PRN Reason: SEVERE Pain (Scale 7,8,9,10) Stop: 11/19/23 13:59 Last Admin: 11/06/23 09:22 Dose: 1 mg Hydroxyzine HCl (Hydroxyzine Hcl 25 Mg Tab) 25 mg PO Q8H PRN PRN Reason: Anxiety Stop: 12/05/23 13:59 Lactated Ringer's (Lr) 1,000 mls @ 0 mls/hr IV .Q0M [facility] Stop: 12/05/23 08:59 Last Infusion: 11/06/23 06:55 Dose: Infused Promethazine HCl 12.5 mg/ (Sodium Chloride) 50.5 mls @ 202 mls/hr IV Q6H PRN PRN Reason: Nausea &/or Vomiting Stop: 12/05/23 13:59 Lorazepam 0.5 mg/ Syringe 0.5 mls @ 2 mls/min IV Q8H PRN; Protocol PRN Reason: Sedation/Anxiety Stop: 12/05/23 13:59 Dexamethasone 6 mg/ Syringe 1.5 mls @ 1 mls/min IV DAILY [facility] Stop: 11/08/23 09:02 Last Admin: 11/07/23 08:21 Dose: 1 mls/min Influenza Virus Vaccine Quadrival (Do Not Administer Flu Vaccine) 1 each N/A PRN PRN PRN Reason: Notification Stop: 12/05/23 13:59 Lorazepam (Lorazepam 0.5 Mg Tab) 0.5 mg PO Q8H PRN PRN Reason: Sedation/Anxiety Stop: 12/05/23 13:59 Magnesium Hydroxide (Magnesium Hydroxide Susp 30 Ml Udc) 30 ml PO Q24H PRN PRN Reason: Constipation Stop: 12/05/23 13:59 Melatonin (Melatonin 3 Mg Tab) 3 mg PO HS PRN PRN Reason: Sleep Stop: 12/03/23 21:05 Last Admin: 11/03/23 21:34 Dose: 3 mg Metoclopramide HCl (Metoclopramide Hcl Inj 5 Mg/Ml 2 Ml Vial) 10 mg IV Q6H PRN PRN Reason: Nausea &/or Vomiting Stop: 12/05/23 13:59 Miscellaneous (Carbohydrates For Hypoglycemia ) 15 - 30 gm PO UD PRN PRN Reason: Hypoglycemia Protocol Stop: 11/28/23 22:39 Naloxone HCl (Naloxone Hcl 0.4 Mg/1 Ml Vial/Carp) 0.1 mg IV Q5M PRN PRN Reason: Oversedation/Resp depression Stop: 12/05/23 13:59 Ondansetron HCl (Ondansetron Inj 2 Mg/Ml 2 Ml Vial) 4 mg IV Q6H PRN PRN Reason: Nausea &/or Vomiting Stop: 12/05/23 13:59 Ondansetron HCl (Ondansetron 4 Mg Od Tab) 4 mg PO Q6H PRN PRN Reason: Nausea Stop: 12/05/23 13:59 Oxycodone HCl (Oxycodone Hcl Ir 5 Mg Tab (Immediate Release)) 5 - 10 mg PO Q4H PRN PRN Reason: Pain & Pre PT Stop: 11/19/23 13:59 Last Admin: 11/07/23 03:16 Dose: 10 mg Pneumococcal Polyvalent Vaccine (Do Not Administer Pneumococcal Vaccine) 1 each N/A PRN PRN PRN Reason: Notification Stop: 12/05/23 13:59 Polyethylene Glycol (Polyethylene (Miralax) 17 Gm Pack) 17 gm PO Q6 [facility] Stop: 12/06/23 05:59 Last Admin: 11/07/23 11:38 Dose: Not Given Propranolol HCl (Propranolol Hcl La 80 Mg Capcr) 80 mg PO QAM [facility] Stop: 11/29/23 08:59 Last Admin: 11/07/23 08:22 Dose: 80 mg Senna/Docusate Sodium (Docusate Sodium/Senna 50/8.6mg Tab) 2 tab PO HS [facility] Stop: 12/05/23 20:59 Last Admin: 11/06/23 20:00 Dose: Not Given Sertraline HCl (S[facility]raline Hcl 100 Mg Tablet) [facility] Stop: 11/29/23 08:59 Last Admin: 11/07/23 08:22 Dose: 100 mg Sodium Biphosphate/Sodium Phosphate (Sod Phosphate/Sod Biphosphate Enema 132 Ml Btl) 132 ml MN ONE PRN PRN Reason: Constipation Stop: 12/05/23 13:59 Topiramate (Topiramate 100 Mg Tab) 100 mg PO QPM [facility] Stop: 11/28/23 20:59 Last Admin: 11/06/23 20:03 Dose: 100 mg Tramadol HCl (Tramadol Hcl 50 Mg Tablet) 50 - 100 mg PO Q4H PRN PRN Reason: Moderate-Severe pain & Pre PT Stop: 12/05/23 13:59 Last Admin: 11/06/23 14:45 Dose: 100 mg Vitamin D (Cholecalciferol 125 Mcg (5,000 Units) Tab) 125 mcg [facility] [place] Stop: 11/29/23 08:59 Last Admin: 11/07/23 08:26 Dose: Not Given
[2023-11-07] MEDS: WARFARIN SOD 7.5 MG TAB PO SCH (16:03)
--- NOTE | 2023-11-07 21:07 | Electrocardiogram Report ---
Test Reason : Blood Pressure : / mmHG Vent. Rate : 080 BPM Atrial Rate : 033 BPM P-R Int : 000 ms QRS Dur : 156 ms QT Int : 450 ms P-R-T Axes : 000 -81 082 degrees QTc Int : 519 ms Ventricular-paced rhythm Abnormal ECG When compared with ECG of 25-OCT-2016 02:32, Vent. rate has increased BY 5 BPM Confirmed by Buddy Issa [id number]) on 11/07/2023 9:07:24 PM Referred By: REFERRED SELF Confirmed By:Buddy Issa
[2023-11-08 08:59] LABS: Prothrombin Time 10.8 Seconds (9.0-12.0)
--- NOTE | 2023-11-08 10:35 | Orthopedic Progress Note ---
Date of Service November 08, 2023 Assessment & Plan (1) Neurogenic claudication due to lumbar spinal stenosis: Plan: Osorio is postop day 3 status post hard removal L5-S1, decompression and fusion L4-5. He is orthopedically stable for discharge. May resume Coumadin. Will DC AVINASH drain and and change dressing just prior to discharge. Will follow him up in the office in 2 weeks. Please call for appointment. [phone] thank you Admission and Anticipated Discharge Date Admission Date: October 29, 2023 Subjective Osorio is postoperative day 3 status post hard removal L5-S1, decompression and fusion L4-5. Preoperative pain is greatly improved. Has complaints of back pain and occasional spasms. Controlled at this point. He had a bowel movement. AVINASH drain output last shift was 50 cc. Yesterday in physical therapy ambulating 360 feet. Review of Systems Review of Systems: All systems reviewed & are unremarkable except as noted in HPI & below Physical Exam Physical Exam: He is lying in bed. Seen in conjunction with his and family friend Alert and oriented x 3 Strength is intact bilateral lower extremity Dressing is clean dry and intact with functioning AVINASH drain Results & Data Vital Signs (Past 12 Hours) Vital Signs Temp Pulse Pulse Resp BP BP Pulse Ox 11/08/23 07:30 36.6 C 74 20 125/71 97 11/08/23 07:16 86 11/08/23 03:40 36.5 C 81 16 116/64 98 11/07/23 23:04 81 11/07/23 22:54 36.8 C 78 16 112/64 97 O2 Del Method 11/08/23 07:30 Room Air 11/08/23 07:16 11/08/23 03:40 Room Air 11/07/23 23:04 11/07/23 22:54 Room Air Queries Orthopedic Spine Obesity: Yes
[2023-11-08] MEDS: ENOXAPARIN 150 MG/ML SYR SQ SCH (12:47)
--- NOTE | 2023-11-08 12:58 | Hospitalist Progress Note ---
Date of Service November 08, 2023 Assessment & Plan (1) Intractable low back pain: Plan: 78-year-old male with PMH of CAD, A-fib, cardiac pacemaker in situ in 1999, HLD, HTN, CVA x 2, T2DM not on meds, DELANO, vitamin D deficiency, osteoporosis on Prolia presented to the ED 10/28 with worsening back pain that has been going on for 2 months. He denies any loss of bowel and bladder control. He had spinal surgery in late and again in 2009. Last surgery was by Dr. Connolly. He reports taking Tylenol for pain management at home. He denies any febrile illness or flulike illness. He is being managed for the following: Lumbar degenerative disc disease: Chronic L2 compression deformity with kyphoplasty Mild bilateral foraminal narrowing at L4-L5 with posterior disc osteophyte complex Patient coming in with progressive low back pain with radiation to LLE greater than RLE. Pain has been unbearable with current use of Tylenol at home Reviewed initial CT of the lumbar spine-MRI could not be done due to placement Currently pain is reasonably controlled with Tylenol/gabapentin/tramadol and hydromorphone Pain management on board, dexamethasone started Appreciate orthospine input and recommendation Will have CT myelogram to evaluate the nerve compression to have definitive management plan from the Has been off of Coumadin so that he can have the procedure on Saturday Pain has been increased-will increase tramadol to 100 mg every 6 hourly as needed Will continue other medications No bladder and or bowel problem Status post CT myelogram which revealed L4 radiculopathy and he will have surgical correction tomorrow by Dr. Connolly Remains stable today without any significant symptoms to be discharged home this afternoon Status post L4-L5 decompression and fusion, L5-S1 hardware removal and spinal cord monitoring on 11/05/2023 He has been stable following the procedure Further management will depend on spine Ortho Could not tolerate PT and OT this morning due to increasing pain and shakiness without any neuro abnormality Has had physical therapy and recommended home Was seen by orthospine today and they cleared him to go home Will start his Coumadin from today as per Ortho Discussed with the Ortho and will start Lovenox today and Coumadin was started yesterday He will have his drain removed Likely discharge this afternoon (2) Atrial fibrillation: Plan: Chronic A-fib status post pacemaker, CAD, chronic, stable. Continue lisinopril and propranolol. Anticoagulation for A-fib -see above. Coumadin regimen is alternating 7.5 mg and 5 mg at home. Continue statin. Coumadin has been on hold-will start intravenous heparin prior to surgery INR is 1.5 today and expected to go down further tomorrow for CT myelogram Will start intravenous heparin following that Status post lumbar myelogram and will not start any anticoagulation at this time Likely restart anticoagulation with heparin following surgery when appropriate Will asked Dr. Connolly when anticoagulation can be restarted and will start with heparin and or Coumadin Will be discharged home today and will start Coumadin from this evening Will need to take Lovenox and Coumadin and will have INR checked on Saturday through the coagulation clinic (3) Type 2 diabetes mellitus with hemoglobin A1c goal of less than 7.0%: Plan: T2DM: Patient not on medication. Encourage diet and exercise. A1c of 6.7 in July 2023. Prior to that was greater than 7. A1c this admission 7.4. Repeat A1c in 3 months. Blood sugar remains stable (4) Lumbar radiculopathy: Plan Other chronic medical conditions: Continue with/resume home meds as and when able. Hypertension hyperlipidemia-remains stable CKD stage III: Chronic, stable. DVT prophylaxis: Therapeutic INR CODE STATUS: DNR/DNI Dispo: Pain management evaluation ongoing, Ortho evaluation pending. PT/OT, CM to assist with DC planning. Discussed with the daughter in detail Will discharge home this afternoon Discussed with the family members Admission and Anticipated Discharge Date Admission Date: October 29, 2023 Subjective 11/02/2023 The patient was seen and examined in medical telemetry unit in presence of the daughter He has been complaining of back pain with radiation to the left leg up to the ankle for months Denies any bladder and/or bowel problem Condition got worse recently and he came to the emergency room Pain seems to be controlled at rest with current pain regimen 11/03/2023 The patient was seen and examined in medical telemetry unit He has been having more pain in the back with radiation to the left leg Occasional shortness of breath without any chest pain and her palpitation Has been moving bowel 11/04/2023 The patient was seen and examined in medical telemetry unit He is a status post CT myelogram Reviewed by Dr. Connolly and will have surgery tomorrow 11/05/2023 The patient was seen and examined in the medical telemetry unit He is back from lumbar spinal procedure Still remains under the influence of anesthetics Denies any chest pain, palpitation or shortness of breath 11/06/2023 The patient was seen and examined in medical telemetry unit He was noted to be shaky and unwell during physical therapy likely secondary to increasing pain and nerve irritation Remains hemodynamically stable and without any other neurological symptoms or signs 11/07/2023 The patient was seen and examined in medical telemetry unit He has been feeling much better today and has had good physical therapy He was seen by orthospine and advised that he can go home this afternoon He denies any other significant symptoms except some back pain without radiation 11/08/2023 The patient was seen and examined in medical telemetry unit in presence of the family members He has been feeling much better today and awaiting discharge home Has some back pain without radiation Denies any other significant symptoms Review of Systems Review of Systems: All systems reviewed and are unremarkable except as noted below Physical Exam Physical Exam: Lying in bed with acute distress due to back pain and pain in the left leg Constitutional: well developed, well nourished, + ill appearing and + obese Eyes: PERRL, conjunctivae normal, anicteric sclerae ENMT: external ear and nose normal, oropharynx normal Neck: trachea midline, no thyromegaly Respiratory: no respiratory distress Auscultation: lungs clear to auscultation bilaterally Cardiovascular: Rate/Rhythm: regular rate and regular rhythm; not tachycardic Heart Sounds: normal S1 and normal S2; no murmur Extremities: no edema Gastrointestinal (Abdomen): Inspection/Auscultation: normal bowel sounds; abdomen not distended Percussion/Palpation: abdomen soft; abdomen nontender Neurologic: normal touch/pain/proprioception and moves all extremities; no focal motor deficits Psychiatric: A+Ox3, euthymic affect Lymphatic: no cervical or axillary lymphadenopathy Results & Data Results & Data Vital Signs (Past 12 Hours) Vital Signs Temp Pulse Pulse Resp BP BP Pulse Ox 11/08/23 11:27 36.4 C L 78 20 105/66 96 11/08/23 07:30 36.6 C 74 20 125/71 97 11/08/23 07:16 86 11/08/23 03:40 36.5 C 81 16 116/64 98 O2 Del Method 11/08/23 11:27 Room Air 11/08/23 07:30 Room Air 11/08/23 07:16 11/08/23 03:40 Room Air Medications Administered Current Inpatient Medications Acetaminophen (Acetaminophen 500 Mg Tab) 1,000 mg PO Q8H PRN PRN Reason: MILD Pain Scale 1,2,3 & Pre PT Stop: 12/05/23 13:59 Last Admin: 11/06/23 14:45 Dose: 1,000 mg Al Hydrox/Mg Hydrox/Simethicone (Aluminum/Magnesium Susp 30 Ml Udc) 30 ml PO Q6H PRN PRN Reason: Dyspepsia Stop: 12/05/23 13:59 Amlodipine Besylate (Amlodipine Besylate 5 Mg Tab) 5 mg PO QAM [facility] Stop: 12/02/23 08:59 Last Admin: 11/08/23 08:35 Dose: 5 mg Atorvastatin Calcium (Atorvastatin 40 Mg Tab) 80 mg PO HS [facility] Stop: 11/28/23 20:59 Last Admin: 11/07/23 20:04 Dose: 80 mg Bisacodyl (Bisacodyl 5 Mg Tabec) 10 mg PO DAILY [facility] Stop: 11/29/23 08:59 Last Admin: 11/08/23 08:36 Dose: Not Given Bisacodyl (Bisacodyl 10 Mg Supp) 10 mg RI DAILY PRN PRN Reason: Constipation Stop: 12/05/23 13:59 Dextrose (Dextrose 50% 50 Ml Syringe) 25 - 50 ml IV UD PRN; Protocol PRN Reason: Hypoglycemia Protocol Stop: 11/28/23 22:39 Diphenhydramine HCl (Diphenhydramine Capsule 25 Mg Cap) 25 mg PO Q6H PRN PRN Reason: Allergic Rhinitis/Insomnia Stop: 12/05/23 13:59 Enoxaparin Sodium (Enoxaparin 150 Mg/Ml Syr) 150 mg SQ Q24H [facility] Stop: 12/08/23 11:59 Last Admin: 11/08/23 12:47 Dose: 150 mg Famotidine (Famotidine 20 Mg Tab) 20 mg PO QAM [facility] Stop: 11/30/23 08:59 Last Admin: 11/08/23 08:35 Dose: 20 mg Famotidine (Famotidine 20 Mg Tab) 20 mg PO Q12H PRN PRN Reason: Dyspepsia Stop: 12/05/23 13:59 Gabapentin (Gabapentin 300 Mg Cap) 300 mg PO TID [facility] Stop: 12/01/23 08:59 Last Admin: 11/08/23 12:48 Dose: 300 mg Glucagon (Glucagon For Inj 1 Mg Vial) 1 mg SQ UD PRN; Protocol PRN Reason: Hypoglycemia Protocol Stop: 11/28/23 22:39 Glucose (Glucose 10 Tab/Tube) 4 - 8 tab PO UD PRN; Protocol PRN Reason: Hypoglycemia Treatment Stop: 11/28/23 22:39 Glucose (Glucose 40% Gel 15 Gm Tube) 15 - 30 gm PO UD PRN; Protocol PRN Reason: Hypoglycemia Protocol Stop: 11/28/23 22:39 Hydromorphone HCl (Hydromorphone Inj 0.5 Mg/0.5 Ml Syr) 0.5 mg IV Q3H PRN PRN Reason: MODERATE Pain (Scale 4,5,6) & Pre PT Stop: 11/19/23 13:59 Hydromorphone HCl (Hydromorphone Inj 1 Mg/Ml Syringe) 1 mg IV Q3H PRN PRN Reason: SEVERE Pain (Scale 7,8,9,10) Stop: 11/19/23 13:59 Last Admin: 11/06/23 09:22 Dose: 1 mg Hydroxyzine HCl (Hydroxyzine Hcl 25 Mg Tab) 25 mg PO Q8H PRN PRN Reason: Anxiety Stop: 12/05/23 13:59 Lactated Ringer's (Lr) 1,000 mls @ 0 mls/hr IV .Q0M [facility] Stop: 12/05/23 08:59 Last Infusion: 11/06/23 06:55 Dose: Infused Promethazine HCl 12.5 mg/ (Sodium Chloride) 50.5 mls @ 202 mls/hr IV Q6H PRN PRN Reason: Nausea &/or Vomiting Stop: 12/05/23 13:59 Lorazepam 0.5 mg/ Syringe 0.5 mls @ 2 mls/min IV Q8H PRN; Protocol PRN Reason: Sedation/Anxiety Stop: 12/05/23 13:59 Influenza Virus Vaccine Quadrival (Do Not Administer Flu Vaccine) 1 each N/A PRN PRN PRN Reason: Notification Stop: 12/05/23 13:59 Lorazepam (Lorazepam 0.5 Mg Tab) 0.5 mg PO Q8H PRN PRN Reason: Sedation/Anxiety Stop: 12/05/23 13:59 Magnesium Hydroxide (Magnesium Hydroxide Susp 30 Ml Udc) 30 ml PO Q24H PRN PRN Reason: Constipation Stop: 12/05/23 13:59 Melatonin (Melatonin 3 Mg Tab) 3 mg PO HS PRN PRN Reason: Sleep Stop: 12/03/23 21:05 Last Admin: 11/07/23 20:04 Dose: 3 mg Metoclopramide HCl (Metoclopramide Hcl Inj 5 Mg/Ml 2 Ml Vial) 10 mg IV Q6H PRN PRN Reason: Nausea &/or Vomiting Stop: 12/05/23 13:59 Miscellaneous (Carbohydrates For Hypoglycemia ) 15 - 30 gm PO UD PRN PRN Reason: Hypoglycemia Protocol Stop: 11/28/23 22:39 Naloxone HCl (Naloxone Hcl 0.4 Mg/1 Ml Vial/Carp) 0.1 mg IV Q5M PRN PRN Reason: Oversedation/Resp depression Stop: 12/05/23 13:59 Ondansetron HCl (Ondansetron Inj 2 Mg/Ml 2 Ml Vial) 4 mg IV Q6H PRN PRN Reason: Nausea &/or Vomiting Stop: 12/05/23 13:59 Ondansetron HCl (Ondansetron 4 Mg Od Tab) 4 mg PO Q6H PRN PRN Reason: Nausea Stop: 12/05/23 13:59 Oxycodone HCl (Oxycodone Hcl Ir 5 Mg Tab (Immediate Release)) 5 - 10 mg PO Q4H PRN PRN Reason: Pain & Pre PT Stop: 11/19/23 13:59 Last Admin: 11/08/23 08:33 Dose: 10 mg Pneumococcal Polyvalent Vaccine (Do Not Administer Pneumococcal Vaccine) 1 each N/A PRN PRN PRN Reason: Notification Stop: 12/05/23 13:59 Polyethylene Glycol (Polyethylene (Miralax) 17 Gm Pack) 17 gm PO Q6 [facility] Stop: 12/06/23 05:59 Last Admin: 11/08/23 12:47 Dose: Not Given Propranolol HCl (Propranolol Hcl La 80 Mg Capcr) 80 mg PO QAM [facility] Stop: 11/29/23 08:59 Last Admin: 11/08/23 08:35 Dose: 80 mg Senna/Docusate Sodium (Docusate Sodium/Senna 50/8.6mg Tab) 2 tab PO HS [facility] Stop: 12/05/23 20:59 Last Admin: 11/07/23 20:04 Dose: Not Given Sertraline HCl (Sertraline Hcl 100 Mg Tablet) 100 mg PO QAM [facility] Stop: 11/29/23 08:59 Last Admin: 11/08/23 08:35 Dose: 100 mg Sodium Biphosphate/Sodium Phosphate (Sod Phosphate/Sod Biphosphate Enema 132 Ml Btl) 132 ml RI ONE PRN PRN Reason: Constipation Stop: 12/05/23 13:59 Topiramate (Topiramate 100 Mg Tab) 100 mg PO QPM [facility] Stop: 11/28/23 20:59 Last Admin: 11/07/23 20:03 Dose: 100 mg Tramadol HCl (Tramadol Hcl 50 Mg Tablet) 50 - 100 mg PO Q4H PRN PRN Reason: Moderate-Severe pain & Pre PT Stop: 12/05/23 13:59 Last Admin: 11/06/23 14:45 Dose: 100 mg Vitamin D (Cholecalciferol 125 Mcg (5,000 Units) Tab) 125 mcg PO QAM [facility] Stop: 11/29/23 08:59 Last Admin: 11/08/23 08:33 Dose: 125 mcg Warfarin Sodium (Warfarin Sod 7.5 Mg Tab) 7.5 mg PO DAILY@1600 [facility] Stop: 12/07/23 15:59 Last Admin: 11/07/23 16:03 Dose: 7.5 mg
== END 2023-11-08 16:00 | disposition home health service (06) | DRG 454 ==
LOC: ED 14:41 → SUATTDRO 18:13 → EDINP 18:13 → 2N 22:27

== ENCOUNTER 2023-11-11 14:24 | Inpatient (IN) ==
[2023-11-11] MEDS ORDERED: MoRPHine SULFATE 2 MG/ML CARP IV PRN (14:36)
--- NOTE | 2023-11-11 14:39 | Emergency Department Note ---
Impression & Plan Back pain, Post-op pain, Leukocytosis, CKD (chronic kidney disease) ED Provider Note NAME: RADHA NAGY AGE: 78 SEX: M : 1945 ARRIVES VIA: Ambulance INFORMANT: Patient ED PROVIDER(S): Flo Aj DO CHIEF COMPLAINT: back pain HPI: Patient is a 78-year-old male with a past medical history of CAD, CVA, A- fib, hypertension and hyperlipidemia that presents to the ER for for back pain. Is located in the lower back. He notes it is severe. He notes no new weakness and numbness in fact his weakness in the legs has improved significantly. He had surgery by Dr. Connolly last Saturday and was discharged on . He notes the pain got significantly worse today. No fevers or drainage from the back. No other exacerbating or remitting factors. ADDITIONAL HISTORY OBTAINED: Per HPI Chronic Medical/Social Conditions Affecting Care: Per HPI PAST MEDICAL HISTORY:See Below PAST SURGICAL HISTORY:See Below FAMILY HISTORY:See Below SOCIAL HISTORY:See Below HOME MEDICATIONS:See Below ALLERGIES:See Below VITALS:See Below PHYSICAL EXAMINATION: GENERAL: Sitting up in bed, alert, moderate distress, laying flat on nasal cannula EYE EXAM: normal conjunctiva. PERRL and EOM's grossly intact. OROPHARYNX: no exudate, no erythema, lips, buccal mucosa, and tongue normal and mucous membranes are moist NECK: supple, no nuchal rigidity, no adenopathy, non-tender LUNGS: Clear to auscultation. Normal chest wall mechanics HEART: no murmurs, S1 normal and S2 normal ABDOMEN: abdomen soft, non-tender, normo-active bowel sounds, no masses, no rebound or guarding. BACK: Back is symmetrical on inspection and there is no deformity, midline incision with Steri-Strips in place and dried blood. UPPER EXTREMITIES: upper extremities are grossly normal. LOWER EXTREMITIES: Flexion-extension bilateral hips knees and ankles 5 out of 5 with the left leg slightly weaker than the right but old per patient. NEURO EXAM: Normal sensorium, cranial nerves II-XII grossly intact, normal speech, no gross weakness of arms, no gross weakness of legs. MEDICAL DECISION MAKING: Patient is a 78-year-old male postop from Dr. Alicea last week who presents to the ER for back pain. IV was established blood work was obtained. Labs show mild leukocytosis. Mild anemia 10.9. INR unremarkable. BMP with creatinine 1.5 fairly consistent with previous. LFTs bilirubin was unremarkable. Lipase was normal. X-rays of the lumbar spine show no acute fracture. Patient notes that his weakness has improved significantly but the pain is severe. He received 100 mcg of fentanyl prior to her arrival. Following that he received several doses of IV morphine here. He was updated bedside. Discussed with Dr. Connolly and was admitted for further workup. Consults/Care Managements Discussions: Per [facility] Triage Nursing notes reviewed. Limited review of prior medical records performed Vital Signs: reviewed and remarkable for no significant abnormalities Differential diagnosis: Musculoskeletal, disc herniation, fracture, metastatic disease, cord compression, discitis, sciatica, cauda equina, infection, aortic disease, renal colic, gastrointestinal, as well as other pathologies. ER treatment provided: See below Diagnostics interpreted by me include EKG and cardiac monitoring as listed below: -Cardiac Monitoring: An order was placed for continuous cardiac monitoring. The monitor shows a rate of 78 with sinus rhythm. -ECG: none -Laboratory studies:Interpreted by me as stated above in [facility] and shown below. Imaging studies: Xrays: As interpreted by me: X-rays of the lumbar spine show no acute fracture or dislocation CTs show: none Procedures:none Critical Care: None Past Med/Surg History Medical History (Updated 11/11/23 @ 20:45 by Flo Aj DO) Kidney disease, chronic, stage III (GFR 30-59 ml/min) Dyslipidemia, goal LDL below 70 DM type 2 causing renal disease Cardiac pacemaker in situ Benign essential tremor Testicular hypofunction Senile osteoporosis Periodic limb movement disorder Pathologic fracture of vertebrae Obstructive sleep apnea of adult Neck pain Fistula Diverticulosis Daytime hypersomnolence Coronary atherosclerosis of [place] coronary vessel Blurry vision Benign neoplasm of large bowel Adjustment disorder with depressed mood History of COVID-19 x4. Most recent beginning of 2022. Continues altered taste and no smell. Experiences sob on exertion. Depression History of colon polyps Knee problem bilat. On anticoagulant therapy warfarin daily Chronic back pain Rectal bleeding on occ. 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 --follows with Dr. Minor Pacemaker replaced on 09/2019 [facility] last check 2 mon ago. Atrial fibrillation reason for warfarin--Dr. Castillo. Sleep apnea no device Cervical radiculopathy limited rom. Ulnar neuropathy of left upper extremity Essential tremor left hand Surgical History (Updated 11/07/23 @ 00:09 by Bhavna Guevara) History of pacemaker original sx and 2 revisions. History of cardioversion multiple History of open reduction and internal fixation (ORIF) procedure left--hardware in place History of lumbar spinal fusion History of cholecystectomy History of colonoscopy with polypectomy History of wisdom tooth extraction History of heart artery stent x2 History of cardiac cath x3--last --total of 2 stents History of cardiac radiofrequency ablation x2 History of carpal tunnel surgery bilt wrists Family History Mother Cardiac disorder Father Cardiac disorder Sister Cardiac disorder Family history of diabetes mellitus Brother Cardiac disorder Family history of diabetes mellitus Other No family history of adverse response to anesthesia Social History Smoking Status: Current some day smoker Tobacco Type: Cigars Cigarettes Per Day: sometimes cigar/advised npo; Second Hand Exposure: No; Do You Dip or Chew Tobacco: No (hx a long time ago); Hx Alcohol Use: Yes Alcohol type: hard liquor Hx Substance Use: No Preferred Language: Afghan Communication Ability: Effective Visual Impairment: No Limitations Hearing Ability: Normal Property Loss Insurance Claim Adjuster Required: No Beliefs That Will Affect Care: Jainism Jainism Beliefs: Restorationist marital status: Current Living Situation: Spouse 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, 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 Feels Safe at Home: Yes Assistive Devices: None Allergies Allergies Allergy/AdvReac Type Severity Reaction Status Date / Time codeine AdvReac Unknown N/V Verified 10/07/23 14:38 morphine AdvReac Unknown N/V Verified 10/07/23 14:38 Home Meds Home Medications Medication Instructions Recorded Confirmed acetaminophen 500 mg tablet 500 mg PO Q6H PRN Pain 08/24/19 11/11/23 atorvastatin 80 mg tablet 80 mg PO HS 08/24/19 11/11/23 cholecalciferol (vitamin D3) 125 5,000 units PO QAM 08/24/19 11/11/23 mcg (5,000 unit) disintegrating tablet lisinopril 10 mg tablet 10 mg PO QAM 08/24/19 11/11/23 sertraline 100 mg tablet 100 mg PO QAM 08/24/19 11/11/23 topiramate 100 mg tablet 100 mg PO QPM 06/13/23 11/11/23 warfarin 5 mg tablet (Jantoven) 5 - 7.5 mg PO UD 06/13/23 11/11/23 propranolol 80 mg capsule,24 80 mg PO QAM 08/16/23 11/11/23 hr,extended release Previous Rx's Medication Instructions Recorded oxycodone 5 mg tablet 5 mg PO Q6H PRN pain #30 tabs 11/06/23 tramadol 50 mg tablet 50 mg PO Q6H PRN pain, moderate 11/06/23 #30 tabs enoxaparin 150 mg/mL subcutaneous 150 mg subcut DAILY #3 mL 11/08/23 syringe (Lovenox) Results & Data (ED) Vital Signs Vital Signs - 24 hr 11/11/23 14:40 11/11/23 14:47 11/11/23 14:52 Temperature 36.5 C Temperature Source Oral Pulse Rate 77 75 Pulse Rate [Left Finger] Respiratory Rate 18 Respiratory Effort / Characteristics Respiratory Depth Respiratory Pattern Blood Pressure 111/63 Blood Pressure [Right Arm] Blood Pressure Mean 79 Blood Pressure Mean [Right Arm] Blood Pressure Position [Right Arm] Pulse Oximetry 100 Oxygen Delivery Method Nasal Cannula Nasal Cannula Oxygen Flow Rate 2 Sepsis New/Unexplained Change in Mental Status No Sepsis Action Taken by Nursing No Action Required 11/11/23 15:30 11/11/23 17:00 Temperature Temperature Source Pulse Rate Pulse Rate [Left Finger] 76 75 Respiratory Rate 16 18 Respiratory Effort / Characteristics Non-Labored Spontaneous Non-Labored Spontaneous Respiratory Depth Normal Normal Respiratory Pattern Regular Regular Blood Pressure Blood Pressure [Right Arm] 110/63 92/56 L Blood Pressure Mean Blood Pressure Mean [Right Arm] 78 68 Blood Pressure Position [Right Arm] Lying Lying Pulse Oximetry 96 95 Oxygen Delivery Method Room Air Room Air Oxygen Flow Rate Sepsis New/Unexplained Change in Mental Status Sepsis Action Taken by Nursing Laboratory Data 11/11/23 14:35 11/11/23 14:35 Lab Results 11/11/23 Range/Units 14:35 WBC 11.33 H (4.8-10.8) K/ul RBC 3.69 L (4.70-6.10) M/uL Hgb 10.9 L (14.0-18.0) g/dl Hct 34.3 L (42.0-52.0) % MCV 93.0 (80.0-100.0) fL MCH 29.5 (25.0-34.0) pg MCHC 31.8 L (32.0-36.0) g/dL RDW Std Deviation 49.3 H (36.4-46.3) fL RDW Coeff of Tawana 14.6 H (11.5-14.5) % Plt Count 190 (130-400) K/uL MPV 11.9 (9.4-12.4) fL Immature Gran % (Auto) 5.9 % Neut % (Auto) 72.4 % Lymph % (Auto) 7.8 % [place] % (Auto) 12.2 % Eos % (Auto) 1.0 % Baso % (Auto) 0.7 % Neut # (Auto) 8.21 H (1.40-6.50) K/uL Lymph # (Auto) 0.88 L (1.20-3.40) K/uL [place] # (Auto) 1.38 H (0.11-0.59) K/uL Eos # (Auto) 0.11 (0.00-0.50) K/uL Baso # (Auto) 0.08 (0.00-0.20) K/uL Immature Gran # (Auto) 0.67 H (0.01-0.20) K/uL PT 11.8 (9.0-12.0) Seconds INR 1.1 (0.9-1.1) Sodium 136 (136-145) mmol/L Potassium 4.5 (3.5-5.1) mmol/L Chloride 107 (98-107) mmol/L Carbon Dioxide 24 (21-32) mmol/L Anion Gap 5 (3-11) BUN 34 H (6-23) mg/dl Creatinine 1.58 H (0.6-1.4) mg/dl Est Cr Clr Drug Dosing 46.3 ml/min Est GFR ( Amer) 48.2 ml/min Est GFR (Non-Af Amer) 41.6 ml/min BUN/Creatinine Ratio 21.5 H (10-20) Glucose 128 H (70-99(Fasting)) mg/dl Calcium 8.2 L (8.6-10.3) mg/dl Total Bilirubin 0.9 (0.2-1.0) mg/dl AST 18 (13-39) U/L ALT 18 (7-52) U/L Alkaline Phosphatase 43 (34-104) U/L Total Protein 5.7 L (6.0-8.3) gm/dl Albumin 3.2 L (3.4-5.0) gm/dl Globulin 2.5 (2.5-4.0) gm/dl Albumin/Globulin Ratio 1.3 (0.9-2) Lipase 26 (11-82) U/L Administered Medications Discontinued Medications Ciprofloxacin (Ciprofloxacin 500 Mg Tab) 500 mg PO NOW STA Stop: 11/11/23 16:03 Last Admin: 11/11/23 16:18 Dose: Not Given Documented By: LMM Metronidazole (Metronidazole 500 Mg Tab) 500 mg PO NOW STA; Protocol Stop: 11/11/23 16:03 Last Admin: 11/11/23 16:18 Dose: Not Given Documented By: LMM Morphine Sulfate (Morphine Sulfate 4 Mg/Ml 1 Ml Carp\\Vial) 4 mg IV Q1H PRN PRN Reason: Severe Pain (Rating 7,8,9,10) Stop: 11/25/23 14:35 Last Admin: 11/11/23 16:52 Dose: 4 mg Documented By: Admin: 11/11/23 15:26 Dose: 4 mg Documented By: LMM Imaging Data Radiologist's Impression: Lumbar Spine X-Ray 11/11/23 14:36 LUMBAR SPINE 3 VIEWS CLINICAL HISTORY: Low back pain. FINDINGS: 3 views of the lumbar spine are compared to study dated 11/04/2023. The skeletal structures are osteopenic. There is no radiographic evidence of acute fracture or malalignment. There is a chronic compression deformity of L2 with evidence of previous vertebroplasty. Vertebral body height is otherwise maintained throughout the lumbar spine. Alignment is preserved. Anterior and lateral marginal osteophytes are seen throughout. There has been discectomy at L4-L5 with evidence of previous laminectomy seen at L4-S1. Hardware in L1 has been removed. There is a residual screw fragment within the right aspect of S1. Interpedicular screws are noted at L4 and L5. The transverse processes are grossly intact. There is disc space narrowing and partial bony fusion at L5-S1. Minimal disc space narrowing is seen in the upper lumbar region. The visualized bony pelvis appears intact. Degenerative sclerosis is noted in the sacroiliac joints. There is no bowel obstruction. Atherosclerotic calcification is observed in the abdominal aorta. IMPRESSION: 1. No acute bony abnormality is seen involving the lumbar spine. 2. Osteopenia with chronic degenerative and postsurgical changes as above. Dictated: 11/11/2023 3:17 PM Transcribed: 11/11/2023 3:32 PM Oscar [id number] [email or web address] [id number] Electronically signed by: Michael Chen M.D. 11/11/2023 3:42 PM Discharge Plan Visit Data Chief Complaint: Back Injury/Pain ED Provider: Flo Aj Discharge Problem: Back pain, Post-op pain, Leukocytosis, CKD (chronic kidney disease) Patient Disposition: Admitted As Inpatient Discharge Instructions Interventions: ED Discharge Assessment Last Done: 11/11/23 19:49 Discharge Problem: Back pain Qualifiers: Back pain location: low back pain Chronicity: acute Back pain laterality: u nspecified Sciatica presence: unspecified whether sciatica present Qualified Code(s): M54.50 - Low back pain, unspecified Leukocytosis Qualifiers: Leukocytosis type: unspecified Qualified Code(s): D72.829 - Elevated white blood cell count, unspecified CKD (chronic kidney disease) Qualifiers: Chronic kidney disease stage: unspecified stage Qualified Code(s): N18.9 - Chronic kidney disease, unspecified
[2023-11-11 14:55] LABS: Hematocrit (blood only) 34.3 % (42.0-52.0); Hemoglobin 10.9 g/dl (14.0-18.0); Mean Corpuscular Hemoglobin 29.5 pg (25.0-34.0); Mean Corpuscular Hgb Conc 31.8 g/dL (32.0-36.0); Mean Platelet Volume 11.9 fL (9.4-12.4); Platelet Count 190 K/uL (130-400); RDW Coefficient of Variation 14.6 % (11.5-14.5); RDW Standard Deviation 49.3 fL (36.4-46.3); Red Blood Count 3.69 M/uL (4.70-6.10); White Blood Count 11.33 K/ul (4.8-10.8)
[2023-11-11 15:09] LABS: Albumin Globulin Ratio 1.3 (0.9-2); Albumin Level 3.2 gm/dl (3.4-5.0); BUN Creatinine Ratio 21.5 (10-20); Bilirubin,Total 0.9 mg/dl (0.2-1.0); Calcium 8.2 mg/dl (8.6-10.3); Creatinine Clr Calc Pharmacy 46.3 ml/min; Est GFR (African American) 48.2 ml/min; Est GFR (Non-African American) 41.6 ml/min; Globulin 2.5 gm/dl (2.5-4.0); Potassium 4.5 mmol/L (3.5-5.1); Total Protein 5.7 gm/dl (6.0-8.3)
[2023-11-11 15:16] LABS: Basophils # (auto) 0.08 K/uL (0.00-0.20); Basophils % (auto) 0.7 %; Eosinophils # (auto) 0.11 K/uL (0.00-0.50); Immature Granulocytes # (auto) 0.67 K/uL (0.01-0.20); Immature Granulocytes % (auto) 5.9 %; Lymphocytes # (auto) 0.88 K/uL (1.20-3.40); Lymphocytes % (auto) 7.8 %; Monocytes # (auto) 1.38 K/uL (0.11-0.59); Monocytes % (auto) 12.2 %; Neutrophils # (auto) 8.21 K/uL (1.40-6.50); Neutrophils % (auto) 72.4 %
[2023-11-11 15:19] LABS: INR 1.1 (0.9-1.1); Prothrombin Time 11.8 Seconds (9.0-12.0)
[2023-11-11] MEDS: MoRPHine SULFATE 4 MG/ML 1 ML CARP\\VIAL IV PRN (15:26)
--- NOTE | 2023-11-11 15:44 | XRay Report ---
LUMBAR SPINE 3 VIEWS CLINICAL HISTORY: Low back pain. FINDINGS: 3 views of the lumbar spine are compared to study dated 11/04/2023. The skeletal structures a re osteopenic. There is no radiographic evidence of acute fracture or malalignment. There is a chroni c compression deformity of L2 with evidence of previous vertebroplasty. Vertebral body height is othe rwise maintained throughout the lumbar spine. Alignment is preserved. Anterior and lateral marginal o steophytes are seen throughout. There has been discectomy at L4-L5 with evidence of previous laminect bj seen at L4-S1. Hardware in L1 has been removed. There is a residual screw fragment within the rig ht aspect of S1. Interpedicular screws are noted at L4 and L5. The transverse processes are grossly i ntact. There is disc space narrowing and partial bony fusion at L5-S1. Minimal disc space narrowing i s seen in the upper lumbar region. The visualized bony pelvis appears intact. Degenerative sclerosis is noted in the sacroiliac joints. There is no bowel obstruction. Atherosclerotic calcification is ob served in the abdominal aorta. IMPRESSION: 1. No acute bony abnormality is seen involving the lumbar spine. 2. Osteopenia with chronic degenerative and postsurgical changes as above. Dictated: 11/11/2023 3:17 PM Transcribed: 11/11/2023 3:32 PM Oscar [id number] [email or web address] [id number] Electronically signed by: Michael Chen M.D. 11/11/2023 3:42 PM
[2023-11-11] MEDS: CIPROFLOXACIN 500 MG TAB PO STA (16:18)
[2023-11-11] MEDS: metroNIDAZOLE 500 MG TAB PO STA (16:18)
[2023-11-11] MEDS ORDERED: traMADol HCL 50 MG TABLET PO PRN (19:48)
[2023-11-11] MEDS ORDERED: ACETAMINOPHEN 500 MG TAB PO PRN (19:48)
[2023-11-11] MEDS ORDERED: LORazepam 0.5 MG in SYRINGE 0.25 ML IV PRN (19:48)
[2023-11-11] MEDS ORDERED: PROMETHAZINE HCL 12.5 MG in SODIUM CHLORIDE 0.9% 50 ML IV PRN (19:48)
[2023-11-11] MEDS ORDERED: ONDANSETRON 4 MG OD TAB PO PRN (19:48)
[2023-11-11] MEDS ORDERED: METOCLOPRAMIDE HCL INJ 5 MG/ML 2 ML VIAL IV PRN (19:48)
[2023-11-11] MEDS ORDERED: MAGNESIUM HYDROXIDE SUSP 30 ML UDC PO PRN (19:48)
[2023-11-11] MEDS ORDERED: NALOXONE HCL 0.4 MG/1 ML VIAL/CARP IV PRN (19:48)
[2023-11-11] MEDS ORDERED: ONDANSETRON INJ 2 MG/ML 2 ML VIAL IV PRN (19:48)
[2023-11-11] MEDS ORDERED: HYDROmorphone INJ 0.5 MG/0.5 ML SYR IV PRN (19:48)
[2023-11-11] MEDS ORDERED: LORazepam 0.5 MG TAB PO PRN (19:48)
[2023-11-11] MEDS: LACTATED RINGER'S 1,000 ML IV SCH (20:48)
[2023-11-11] MEDS: HYDROmorphone INJ 1 MG/ML SYRINGE IV PRN (20:49)
[2023-11-11] MEDS: ATORVASTATIN 40 MG TAB PO SCH (21:26)
[2023-11-11] MEDS: dexAMETHasone 8 MG in SYRINGE 0 ML IV SCH (21:26)
[2023-11-11] MEDS: DOCUSATE SODIUM/SENNA 50/8.6MG TAB PO SCH (21:26)
[2023-11-11] MEDS: TOPIRAMATE 100 MG TAB PO SCH (21:27)
--- NOTE | 2023-11-11 23:44 | Consultation ---
Date of Consultation November 11, 2023 Assessment & Plan (1) Back pain: 78-year-old male with past medical history significant for type 2 diabetes, CKD stage III, testicle hypofunction, hypertension, obstructive sleep apnea, history of CAD, A-fib, s/p pacemaker, vitamin D deficiency, osteoporosis, essential tremor, Periodic limb movement disorder, depression who recently on November 04 had a back surgery and was discharged on November 07 comes back with severe back pain. Patient states since he went home having severe back pain. Pain is not shooting down the legs. States pain is only at surgical site. Denies any fevers. States he was able to ambulate. No bowel or bladder incontinence. As per nursing staff somewhat difficult to get him into the bed to the stretcher because of pain.Patient seems to have significant pain at the surgical site when tried to palpate .And seems to be somewhat jumping from pain. Denies any headache. No runny nose or sore throat. No cough. No chest pain. No shortness of breath. No nausea. No bowel normal bowel and bladder movements. No incontinence of bowel or bladder. Hemodynamics are okay. Severe back pain Patient is status post hard removal L5-S1, decompression and fusion L4-5 on November 04 X-ray looks okay Vitals okay Tender to palpation No weakness or bowel /bladder incontinence Pain control Further management as per orthopedics Type 2 diabetes Not on meds Sliding scale Will monitor History of A-fib S/p pacemaker On propranolol Currently on Lovenox bridge Will hold Coumadin for now History of CAD s/p stent On statin metoprolol and Coumadin. Coumadin on hold Hypertension On lisinopril, propranolol Will monitor Hyperlipidemia On statin CKD stage III Present creatinine 1.5 seems around baseline We will follow labs DVT prophylaxis On Lovenox Disposition As per Ortho History of Present Illness Reason for Consultation: Severe back pain Attending Physician: Russell Connolly, DO History of Present Illness 78-year-old male with past medical history significant for type 2 diabetes, CKD stage III, testicle hypofunction, hypertension, obstructive sleep apnea, history of CAD, A-fib, s/p pacemaker, vitamin D deficiency, osteoporosis, essential tremor, Periodic limb movement disorder, depression who recently on November 04 had a back surgery and was discharged on November 07 comes back with severe back pain. Patient states since he went home having severe back pain. Pain is not shooting down the legs. States pain is only at surgical site. Denies any fevers. States he was able to ambulate. No bowel or bladder incontinence. As per nursing staff somewhat difficult to get him into the bed to the stretcher because of pain.Patient seems to have significant pain at the surgical site when tried to palpate .And seems to be somewhat jumping from pain. Denies any headache. No runny nose or sore throat. No cough. No chest pain. No shortness of breath. No nausea. No bowel normal bowel and bladder movements. No incontinence of bowel or bladder. Hemodynamics are okay. Past medical history. As mentioned above Past surgical history. Ablation of atrial fibrillation. Bilateral Carpal tunnel surgery. Colonoscopy. Injection lumbosacral spine. Implantable defibrillator. Lumbar hemilaminectomy. Cardiac stent placement. Social history. . Quit smoking 2019. Smoked for 55 years. Alcohol rarely. No drug use. Family history. Brother had heart disorder. Father had heart disease. Mother had heart disorder. Sister had heart disorder. Allergies Allergy/AdvReac Type Severity Reaction Status Date / Time codeine AdvReac Unknown N/V Verified 10/07/23 14:38 morphine AdvReac Unknown N/V Verified 10/07/23 14:38 Home Medications Medication Instructions Recorded Confirmed Type acetaminophen 500 mg tablet 500 mg PO Q6H PRN Pain 08/24/19 11/11/23 History atorvastatin 80 mg tablet 80 mg PO HS 08/24/19 11/11/23 History cholecalciferol (vitamin D3) 125 5,000 units PO QAM 08/24/19 11/11/23 History mcg (5,000 unit) disintegrating tablet lisinopril 10 mg tablet 10 mg PO QAM 08/24/19 11/11/23 History sertraline 100 mg tablet 100 mg PO QAM 08/24/19 11/11/23 History topiramate 100 mg tablet 100 mg PO QPM 06/13/23 11/11/23 History warfarin 5 mg tablet (Jantoven) 5 - 7.5 mg PO UD 06/13/23 11/11/23 History propranolol 80 mg capsule,24 80 mg PO QAM 08/16/23 11/11/23 History hr,extended release oxycodone 5 mg tablet 5 mg PO Q6H PRN pain #30 tabs 11/06/23 11/11/23 Rx tramadol 50 mg tablet 50 mg PO Q6H PRN pain, moderate 11/06/23 11/11/23 Rx #30 tabs enoxaparin 150 mg/mL subcutaneous 150 mg subcut DAILY #3 mL 11/08/23 11/11/23 Rx syringe (Lovenox) Patient History Medical History (Updated 11/11/23 @ 20:45 by Flo Aj DO) Kidney disease, chronic, stage III (GFR 30-59 ml/min) Dyslipidemia, goal LDL below 70 DM type 2 causing renal disease Cardiac pacemaker in situ Benign essential tremor Testicular hypofunction Senile osteoporosis Periodic limb movement disorder Pathologic fracture of vertebrae Obstructive sleep apnea of adult Neck pain Fistula Diverticulosis Daytime hypersomnolence Coronary atherosclerosis of [place] coronary vessel Blurry vision Benign neoplasm of large bowel Adjustment disorder with depressed mood History of COVID-19 x4. Most recent beginning of 2022. Continues altered taste and no smell. Experiences sob on exertion. Depression History of colon polyps Knee problem bilat. On anticoagulant therapy warfarin daily Chronic back pain Rectal bleeding on occ. 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 --follows with Dr. Minor Pacemaker replaced on 09/2019 [facility] last check 2 mon ago. Atrial fibrillation reason for warfarin--Dr. Castillo. Sleep apnea no device Cervical radiculopathy limited rom. Ulnar neuropathy of left upper extremity Essential tremor left hand Surgical History (Updated 11/07/23 @ 00:09 by Bhavna Dacarmel) History of pacemaker original sx and 2 revisions. History of cardioversion multiple History of open reduction and internal fixation (ORIF) procedure left--hardware in place History of lumbar spinal fusion History of cholecystectomy History of colonoscopy with polypectomy History of wisdom tooth extraction History of heart artery stent x2 History of cardiac cath x3--last --total of 2 stents History of cardiac radiofrequency ablation x2 History of carpal tunnel surgery bilt wrists Family History Mother Cardiac disorder Father Cardiac disorder Sister Cardiac disorder Family history of diabetes mellitus Brother Cardiac disorder Family history of diabetes mellitus Other No family history of adverse response to anesthesia Social History Smoking Status: Current some day smoker Tobacco Type: Cigars Cigarettes Per Day: sometimes cigar/advised npo; Second Hand Exposure: No; Do You Dip or Chew Tobacco: No (hx a long time ago); Hx Alcohol Use: Yes Alcohol type: hard liquor Hx Substance Use: No Preferred Language: [place] Communication Ability: Effective Visual Impairment: No Limitations Hearing Ability: Normal Hospital Monitor Required: No Beliefs That Will Affect Care: None marital status: Current Living Situation: Spouse Current Living Situation Comment: maddie 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 Lungs- clear to auscultation no wheezing or crackles Heart- regular rhythm; no murmur, no gallop. Abdomen- normal bowel sounds, soft, no distension Extremities- no pretibial edema, no erythema seen Neuro- alert, oriented ; no facial palsy; no dysarthria; power 5/5 n lower extremity, sensations intact lower extremity Musculoskeletal Lumbar back Surgery site tender to palpate, no drainage or significant erythema seen. Results & Data Vital Signs (Past 12 Hours) Vital Signs Temp Pulse Pulse Pulse Resp BP BP 11/11/23 20:20 36.8 C 76 18 115/68 11/11/23 19:56 77 18 105/59 L 11/11/23 18:00 78 14 98/65 L 11/11/23 17:44 80 11/11/23 17:00 75 18 92/56 L 11/11/23 15:30 76 16 110/63 11/11/23 14:52 75 11/11/23 14:47 11/11/23 14:40 36.5 C 77 18 111/63 Pulse Ox O2 Del Method O2 Flow Rate 11/11/23 20:20 99 Room Air 11/11/23 19:56 98 Room Air 11/11/23 18:00 98 Room Air 11/11/23 17:44 11/11/23 17:00 95 Room Air 11/11/23 15:30 96 Room Air 11/11/23 14:52 11/11/23 14:47 Nasal Cannula 11/11/23 14:40 100 Nasal Cannula 2 Diagnostic Findings Laboratory Results WBC 11.33 K/ul (4.8-10.8) H 11/11/23 14:35 RBC 3.69 M/uL (4.70-6.10) L 11/11/23 14:35 Hgb 10.9 g/dl (14.0-18.0) L 11/11/23 14:35 Hct 34.3 % (42.0-52.0) L 11/11/23 14:35 MCV 93.0 fL (80.0-100.0) 11/11/23 14:35 MCH 29.5 pg (25.0-34.0) 11/11/23 14:35 MCHC 31.8 g/dL (32.0-36.0) L 11/11/23 14:35 RDW Std Deviation 49.3 fL (36.4-46.3) H 11/11/23 14:35 RDW Coeff of Tawana 14.6 % (11.5-14.5) H 11/11/23 14:35 Plt Count 190 K/uL (130-400) 11/11/23 14:35 MPV 11.9 fL (9.4-12.4) 11/11/23 14:35 Immature Gran % (Auto) 5.9 % 11/11/23 14:35 Neut % (Auto) 72.4 % 11/11/23 14:35 Lymph % (Auto) 7.8 % 11/11/23 14:35 Bradford % (Auto) 12.2 % 11/11/23 14:35 Eos % (Auto) 1.0 % 11/11/23 14:35 Baso % (Auto) 0.7 % 11/11/23 14:35 Neut # (Auto) 8.21 K/uL (1.40-6.50) H 11/11/23 14:35 Lymph # (Auto) 0.88 K/uL (1.20-3.40) L 11/11/23 14:35 Bradford # (Auto) 1.38 K/uL (0.11-0.59) H 11/11/23 14:35 Eos # (Auto) 0.11 K/uL (0.00-0.50) 11/11/23 14:35 Baso # (Auto) 0.08 K/uL (0.00-0.20) 11/11/23 14:35 Immature Gran # (Auto) 0.67 K/uL (0.01-0.20) H 11/11/23 14:35 PT 11.8 Seconds (9.0-12.0) 11/11/23 14:35 INR 1.1 (0.9-1.1) 11/11/23 14:35 Sodium 136 mmol/L (136-145) 11/11/23 14:35 Potassium 4.5 mmol/L (3.5-5.1) 11/11/23 14:35 Chloride 107 mmol/L (98-107) 11/11/23 14:35 Carbon Dioxide 24 mmol/L (21-32) 11/11/23 14:35 Anion Gap 5 (3-11) 11/11/23 14:35 BUN 34 mg/dl (6-23) H 11/11/23 14:35 Creatinine 1.58 mg/dl (0.6-1.4) H 11/11/23 14:35 Est Cr Clr Drug Dosing 46.3 ml/min 11/11/23 14:35 Est GFR ( Amer) 48.2 ml/min 11/11/23 14:35 Est GFR (Non-Af Amer) 41.6 ml/min 11/11/23 14:35 BUN/Creatinine Ratio 21.5 (10-20) H 11/11/23 14:35 Glucose 128 mg/dl (70-99(Fasting)) H 11/11/23 14:35 Calcium 8.2 mg/dl (8.6-10.3) L 11/11/23 14:35 Total Bilirubin 0.9 mg/dl (0.2-1.0) 11/11/23 14:35 AST 18 U/L (13-39) 11/11/23 14:35 ALT 18 U/L (7-52) 11/11/23 14:35 Alkaline Phosphatase 43 U/L (34-104) 11/11/23 14:35 Total Protein 5.7 gm/dl (6.0-8.3) L 11/11/23 14:35 Albumin 3.2 gm/dl (3.4-5.0) L 11/11/23 14:35 Globulin 2.5 gm/dl (2.5-4.0) 11/11/23 14:35 Albumin/Globulin Ratio 1.3 (0.9-2) 11/11/23 14:35 Lipase 26 U/L (11-82) 11/11/23 14:35 Impressions Lumbar Spine X-Ray 11/11/23 14:36 LUMBAR SPINE 3 VIEWS CLINICAL HISTORY: Low back pain. FINDINGS: 3 views of the lumbar spine are compared to study dated 11/04/2023. The skeletal structures are osteopenic. There is no radiographic evidence of acute fracture or malalignment. There is a chronic compression deformity of L2 with evidence of previous vertebroplasty. Vertebral body height is otherwise maintained throughout the lumbar spine. Alignment is preserved. Anterior and lateral marginal osteophytes are seen throughout. There has been discectomy at L4-L5 with evidence of previous laminectomy seen at L4-S1. Hardware in L1 has been removed. There is a residual screw fragment within the right aspect of S1. Interpedicular screws are noted at L4 and L5. The transverse processes are grossly intact. There is disc space narrowing and partial bony fusion at L5-S1. Minimal disc space narrowing is seen in the upper lumbar region. The visualized bony pelvis appears intact. Degenerative sclerosis is noted in the sacroiliac joints. There is no bowel obstruction. Atherosclerotic calcification is observed in the abdominal aorta. IMPRESSION: 1. No acute bony abnormality is seen involving the lumbar spine. 2. Osteopenia with chronic degenerative and postsurgical changes as above. Dictated: 11/11/2023 3:17 PM Transcribed: 11/11/2023 3:32 PM Oscar [id number] Mel [id number] Electronically signed by: Michael Chen M.D. 11/11/2023 3:42 PM (1) Back pain Back pain laterality: unspecified Back pain location: low back pain Chronicity: acute Sciatica presence: unspecified whether sciatica present Qualified Code(s): M54.50 - Low back pain, unspecified
[2023-11-11] MEDS ORDERED: CARBOHYDRATES FOR HYPOGLYCEMIA PO PRN (23:56)
[2023-11-11] MEDS ORDERED: DEXTROSE 50% 50 ML SYRINGE IV PRN (23:56)
[2023-11-11] MEDS ORDERED: GLUCAGON FOR INJ 1 MG VIAL SQ PRN (23:56)
[2023-11-11] MEDS ORDERED: GLUCOSE 40% GEL 15 GM TUBE PO PRN (23:56)
[2023-11-11] MEDS ORDERED: GLUCOSE 10 TAB/TUBE PO PRN (23:56)
[2023-11-12] MEDS: ACETAMINOPHEN 1,000 MG/100 ML VIAL IV PRN (00:29)
--- OUTSIDE RECORDS SUMMARY | 2023-11-12 02:46 | External Medical Summary | Summary of Care ---
Author Name Unknown Organization [facility] Address [address] [place] [address] Phone [phone] Care Team Providers Care Ethylene Compressor Operator Name Role Phone Franchesca Baker MD Primary Care Provide r Reason for Visit * Reason Onset Date Comments Home Health 11/11/2023 Encounter Details Date Type Department Care Team (Late st Contact Info) Description 11/11/2023 Telephone Family Medicine [address] [phone] Franchesca Baker MD [address] [place] [address] [place] [address] Home Health Allergies Active Allergy Reactions Criticality Noted Date Comments Codeine Nausea/vomiting High 11/13/2017 Other Reaction(s): N/V Morphine High 05/22/2002 Other Reaction(s): N/V Morphine And Related 05/22/2002 documented as of this encounter (statuses as of 11/11/2023) Medications Medication Sig Dispensed Refills Start Date End Date Status ACETAMINOPHEN 500 MG PO TABS 1 - 2 pills as needed 0 Active Vitamin D3 125 MCG (5000 UT) Oral Capsule Take 1 Capsule by mouth in the morning. 0 Active Topiramate 100 MG Oral Tablet (topAMAX) Take 1 Tablet by mouth in the morning. 0 Active Propranolol HCl ER Beads 80 MG Oral Capsule Extended Release 24 Hour Take 80 mg by mouth daily. 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 90 Tablet 1 07/31/2023 Active Sertraline HCl 100 MG Oral Tablet (Zoloft)Indication s:Adjustment disorder with depressed mood Take 1 Tablet by mouth in the morning. 90 Tablet 1 07/31/2023 Active Warfarin Sodium 5 MG Oral Tablet (Coumadin)Indicati ons:Longstanding persistent atrial fibrillation (HCC),Anticoagulat ion management encounter,USP current use of anticoagulant therapy Take 1 to1.5 tablets by mouth every evening OR as directed by anticoagulation clinic 135 Tablet 1 07/31/2023 Active documented as of this encounter (statuses as of 11/11/2023) Active Problems Problem Noted Date Diagnosed Date Longstanding persistent atrial fibrillation 03/30 Type 2 diabetes mellitus wit h stage 3b chronic kidney disease 12/06/2020 Overview: Per CKD protocol Stage 3b chronic kidney disease 11/29/2020 Overview: EGFR 43.8 Permanent atrial fibrillation 03/04/2020 DDD (degenerative disc disease), lumbar 05/22/20 19 Trochanteric bursitis of both hips 05/22/2019 Adjustment disorder with depressed mood 03/11/20 15 Senile osteoporosis 11/11/2014 Vitamin D deficiency 07/27/2009 Overview: Vitamin D level 21.9 DYSLIPIDEMIA, GOAL LDL BELOW 70 07/14/2009 Overview: Per Lipid Taxonomy. Type 2 diabetes mellitus wit h hemoglobin A1c goal of less than 7.0% 05/26/2009 Overview: Per Diabetes Taxonomy. hgba1c 6.9 ICD-10 update of inactive term Benign essential tremor 03/25/2008 Obstructive sleep apnea of adult 03/03/2008 Dermatophytosis of nail 05/20/2007 ADVANCE DIRECTIVE INFORMATION 12/17/2006 Overview: No, Advance Directive brochure offered , patient declined. Cardiac pacemaker in situ 08/02/2004 Testicular hypofunction 08/01/2004 CORONARY ATHEROSCLER. OF [place] CORONARY VESSEL 02/29/2004 Atrial fibrillation 02/29/2004 Periodic limb movement disorder BMI 32.0-32.9,adult Diverticulosis documented as of this encounter (statuses as of 11/11/2023) Resolved Problems Problem Noted Date Diagnosed Date Resolved Date Diabetes mellitus with stage 3 chronic kidney disease 03/24/2021 07/17/2021 Diabetes mellitus with stage 3 chronic kidney disease 06/06/2020 12/08/2020 Overview: Per CKD protocol - Per CKD protocol Diabetic neuropathy 02/29/2020 02/29/20 20 Kidney disease, chronic, sta ge III (GFR 30-59 ml/min) 10/05/2019 06/09/2020 Overview: Per CKD protocol DM type 2 causing CKD stage 3 09/30/2019 09/30/2019 Cardiac arrest due to underl kaylah cardiac condition 09/30/2019 02/24/2020 Seizure in childhood 09/30/2019 021 Kidney disease, chronic, sta ge III (GFR 30-59 ml/min) 10/11/2014 11/08/2017 Overview: Per CKD protocol #1 Serrated adenoma of colon 10/08/2013 History of colonic polyps 09/08/2010 Overview: ICD-10 update of inactive term Neoplasm of uncertain behavior of skin 12/12/2009 08/08/2017 OBESITY, BMI 30-34 (SEE ACTUAL BMI) 10/20/2009 12/17/2011 Overview: Per Obesity Taxonomy Heart failure, etiology unknown 05/26/2009 08/31/2013 Overview: Per Heart Failure Taxonomy Protocol. DM TYPE 2 CAUSING RENAL DZ 05/26/2009 0 02/24/2020 Overview: Per Diabetes Taxonomy. DM type 2 causing renal disease 07/02/2008 08/26/2008 Overview: Resolved per Duplicate Protocol #2. Kidney disease, chronic, sta ge III (GFR 30-59 ml/min) 02/11/2008 09/07/2013 Overview: 22/1.4 GFR 54.8 Benign neoplasm of colon 08/01/200705/2018 Overview: 19 mm sessile polyp in mid ascending colon, 5 sessile polyps in prox ascending colon, 4 mm sessile polyp ins distal ascending colon Type 2 diabetes mellitus wit h hemoglobin A1c goal of less than 7.0% 04/16/2005 05/26/2009 Overview: Per Diabetes Taxonomy. hgba1c 6.9 ICD-10 update of inactive term Vertebral fracture, pathological 03/23/2004 08/08/2017 Overview: 50% compression fx L2, after a fall Senile osteoporosis 03/23/2004 07/27/20 09 Overview: seen on Xray OBESITY, UNSPECIFIED 02/29/2004 010 Overview: Per Obesity Taxonomy Heart failure, etiology unknown 02/29/2004 05/26/2009 Overview: Per Heart Failure Taxonomy Protocol. LOCAL FISTULA AT SITE OF DEFIBRILLATOR 05/22/2002 03/28/2017 Mixed dyslipidemia 9 Overview: Per Lipid Taxonomy. DM type 2 causing renal disease 05/26/2009 Overview: Per Diabetes Taxonomy. Restless legs syndrome 03/30 CKD (chronic kidney disease) stage 2, GFR 60-89 ml/min 07/05/2015 Tubular adenoma 08/08/2017 documented as of this encounter (statuses as of 11/11/2023) Immunizations Name Administration Dates Next Due COVID-19 mRNA, LNP-s, No Pre serve, 2-Dose Series (Moderna) 11/30/2020,11/02/2020 COVID-19 mRNA, LNP-s, No Pre serve, 2-Dose Series (Pfizer) 11/24/2020,11/03/2020 COVID-19, mRNA, LNP-s, PF, B ooster, 100mcg/0.5mg (Moderna) 08/09/2021 H1N1 2009 Influenza, IM 07/01/2009 Pneumococcal Conjugate Vacc, 13 Valent (Prevnar) 07/12/2017,06/16/2015 Pneumococcal Polysaccharide PPV23 (Pneumovax) 05/20/2014,02/28/2012,12/17/2006 Season Influenza, Quad, PF, Adjuvanted, 65+ Yrs, IM (FLUAD) 05/11/2020 Seasonal Influenza, Quadriva lent Hd (Fluzone Hd) 04/20/2021 Seasonal Influenza, Quadriva lent, No Preserve, IM 04/28/2019,05/12/2018,05/10/2016,05/17 Seasonal Influenza, Split, I IV3, With Preserve, Inj 04/22/2014,05/14/2013,04/09/2012,06/01,04/28/2010,05/27/2009,05/27/2008 ,05/27/2007,06/06/2006 Seasonal Influenza, Trivalen t, Adjuvanted, 65+ yrs 03/29/2022 TDAP (age 11 and older)(Adacel) 02/27/2008 Varicella Zoster Vaccine (Adult) 05/22/2010 documented as of this encounter Social History Tobacco Use Types Packs/Day Years Used Date Smoking Tobacco: Former Cigarettes 55 1 08/10/1964 - 06/10/2020 Cigars 06/10/1965 - 1 08/10/2019 Smokeless Tobacco: Former Snuff Comments:Currently smoking 1 cigarette or cigar every 3 -4 days was smoking 1 pack " every couple of days " --Started smoking age 17 Alcohol Use Standard Drinks/Week Comments Yes 0 (1 standard drink = 0.6 oz pur e alcohol) rare whisky once every 2mths PHQ-2 Answer Date Recorded PHQ Adult Total Score 0 11/21/2021 Hunger Vital Sign Answer Date Recorded Within the past 12 months, y ou worried that your food would run out before you got the money to buy more. Never true 11/09/19 21 Within the past 12 months, t he food you bought just didn't last and you didn't have money to get more. Never true 11/08/2020 Sex and Gender Information Value Date Recorded Sex Assigned at Male 08/12/2019 11:09 AM EST Gender Identity Male 08/12/2019 11:09 AM EST Sexual Orientation Straight 11/21/2021 10 :21 AM EDT Job Start Date Occupation Industry Not on file Not on file Not on file documented as of this encounter Miscellaneous Notes * Telephone Encounter - Franchesca Baker MD - 11/11/2023 10:05 AM EDT Noted and pt follows up with [facility] for coumadin management - will discuss futher abt A1C during clinic visit * Telephone Encounter - Carolyn Charles LPN - 11/11/2023 9:20 AM EDT HH Admission/Start of Care Admission/Start of Care: Ree RN, Calling from: [facility] Patient was Admitted to: [facility], for: Lower back pain, S/P Fusion from 10/29/23 to 11/08/23 Referral ordered by: Dr. Roman (Attending Physician) Referral received for: [facility] Start of care completed on: 11/10/23 Report/Concerns of: See below Vitals: T 98.4 P 78 RR 18 BP 118/62 SP O2 99% R/A Lung sounds - Clear Weight - 235 lbs per [facility] notes Blood sugar - N/A see below Narrative: Patients A1C at [facility] was 7.4, patient told Ree that he is not aware that he is a diabetic. Does not follow a diabetic diet or check BS. Patient had a bottle of Gabapentin in the home - not on discharge med list and Ree advised patient that he is not to take that med. Patient is rating his pain 10/10, but he was able to ambulate and do normal activities while she was the there. She advised patient to stagger his Oxy and Tramadol doses (patient was taking one or the other) She had patient take a Tramadol while she was there and by the end of her visit his pain was 6/10. Next Nursing visit(s) on today - to check PT/INR 2 times a week for 2 weeks and then weekly for wound care and PT/INR checks Patient can't have PT services for 3 months They will call with any updates or additional concerns from the upcoming HH visit. Last Office Visit: 07/31/2023 Has patient been scheduled or seen in the office for a follow up visit: Yes- on11/24 Advised that orders will be signed by Dr. Valero and to fax to the office for signature. Call back Ree with advice or orders at [phone] Please fax orders to [facility] documented in this encounter Plan of Treatment Upcoming Encounters Date Type Department Care Team (Late st Contact Info) Description 11/11/2023 5:40 PM EDT Anticoagulation Pharmacy, [address] [place] [phone] [place] [id number] 11/25/2023 2:00 PM EDT [address] [phone] Danny Alberts MD [address] [place] [address] [place] [phone] 02/06/2024 10:00 AM EDT Office Visit [address] [place] [phone] Franchesca Baker MD [address] [place] [address] [place] [phone] 04/24/2024 1:30 PM EDT Nurse Only Rheumatology [address] [place] [phone] Portal, Nurse Rheum [address] [place] [phone] Scheduled Procedures Name Priority Associated Diagnoses Date/Ti me COLONOSCOPY FLEXIBLE PROXIMAL DIAGNOSTIC Recall History of colon polyps Health Maintenance Due Date Last Done Comments Zoster Vaccines (2 of 3) 07/17/2010 05/22/2010 DTaP,Tdap,and Td Vaccines (2 - Td or Tdap) 02/26/2018 02/27/2008 DXA Scan 05/30/2022 05/30/2020, 10/27, 10/14/2012, Additional history exists Depression Screening 11/21/2022 11/21/2021 COVID-19 Vaccine ( season) 2023 08/09/2021, 11/30/2020, 11/24/2020, Additional history exists HbA1c 01/29/2024 07/31/2023, 01/28, 07/24/2022, Additional history exists Diabetic Eye Exam 02/26/2024 02/25/2023, , 11/12/2018, Additional history exists Diabetic Foot Exam 02/26/2024 02/25/2023, 0 04/20/2021, 07/06/2020, Additional history exists Albumin/Creatinine Ratio 03/11/202403/11/ 023, 01/23/2022, 07/07/2020, Additional history exists Influenza Vaccine (FLU shot) (Season Ended) 2024 05/29/2022, 03/29/2022, 04/20/2021, Additional history exists GFR 04/18/2024 10/17/2023, 09/2023, 02/25/2023, Additional history exists CKD HGB USE SMARTSET 06684 07/31/202407/31, 08/14/2021, 08/14/2021, Additional history exists CKD PHOS USE SMARTSET 19874 07/31/2024 01/0 09/2023, 01/23/2022, 02/06/2021, Additional history exists COLONOSCOPY-EVERY 3 YRS AGES 18-100 08/21/2026 08/21/2023, 05/06/2020, 10/26/2016, Additional history exists Pneumococcal Vaccine: 65+ Years Completed 07/12/2017, 06/16/2015, 05/20/2014, Additional history exists VITAMIN D LEVEL ONCE IN A LIFETIME-USE SMARTSET# 35570 Completed 10/17/2023, 09/03/2022, 02/06/2021, Additional history exists GARDASIL-HPV IMMUNIZATION SERIES Aged Out No longer eligible based on patient's age to complete this topic Hepatitis B Aged Out No longer eligi ble based on patient's age to complete this topic MENINGOCOCCAL (MENACTRA/MENVEO) Aged Out No longer eligible based on patient's age to complete this topic documented as of this encounter Medical Devices Implanted Type Area Nailer Operator Device Identifier Shelf Expiration Date Model / Serial / Lot Screw Cortical Drp 3.5x16mm - [id number] Implanted:Qty: 1 on 03/10/2020 by Triston Casas DO at [facility] Left: Lower Arm [employer] AR-8735-16 / / Plt Volar Distal Rad Std Lt 5h - [id number] Implanted:Qty: 1 on 03/10/2020 by Triston Casas DO at [facility] Left: Lower Arm [employer] AR-8916VSL- 05 / / Screw Peggy Ti 2.4x22mm - [id number] Implanted:Qty: 2 on 03/10/2020 by Triston Casas DO at [facility] Left: Lower Arm [employer] AR-8724V-22 / / Screw Peggy Ti 2.4x20mm - [id number] Implanted:Qty: 3 on 03/10/2020 by Triston Casas DO at [facility] Left: Lower Arm [employer] AR-8724V-20 / / Screw Peggy Ti 2.4x18mm - [id number] Implanted:Qty: 1 on 03/10/2020 by Triston Casas DO at [facility] Left: Lower Arm [employer] AR-8724V-18 / / Screw Peggy Ti 2.4x16mm - [id number] Implanted:Qty: 1 on 03/10/2020 by Triston Casas DO at [facility] Left: Lower Arm [employer] AR-8724V-16 / / Screw Locking Drp 3.5x16mm - [id number] Implanted:Qty: 1 on 03/10/2020 by Triston Casas, DO at OR [facility] Left: Lower Arm [employer] AR-8735L-16 / / Screw Locking Drp 3.5x18mm - [id number] Implanted:Qty: 1 on 03/10/2020 by Triston Casas, DO at [facility] Left: Lower Arm [employer] AR-8735L-18 / / documented as of this encounter Advance Directives Latest Code Status on File Code Status Date Activated Date Inactivated Comments Full Code 01/03/2021 9:30 AM 01/03/2021 3:20 PM This or jordan reflects the patients wishes and were consensually agreed upon. Care Teams Ethylene Compressor Operator Relationship Specialty Start Date End Date Franchesca Baker MD [address] [place] [address] [place] [phone] PCP - General Family Medicine 11/11/23 documented as of this encounter
--- OUTSIDE RECORDS SUMMARY | 2023-11-12 02:46 | External Medical Summary | Summary of Care ---
Author Name Unknown Organization [facility] Address [address] [place] [address] Phone [phone] Care Team Providers Care U.S. Representative Name Role Phone Danny Alberts MD Primary Care Provider [phone] Reason for Visit * Reason Comments Dosage Adjustment Via Phone (anticoag Cl inic) Encounter Details Date Type Department Care Team (Latest Contact Info) Description 11/10/2023 7:00 AM EDT Anticoagulation Pharmacy Call Center [phone] [place] [address] [facility] [address] [place] [address] Longstanding persistent atrial fibrillation (HCC)* Allergies Active Allergy Reactions Criticality Noted Date Comments Codeine Nausea/vomiting High 11/13/2017 Other Reaction(s): N/V Morphine High 05/22/2002 Other Reaction(s): N/V Morphine And Related 05/22/2002 documented as of this encounter (statuses as of 11/10/2023) Medications Medication Sig Dispensed Refills Start Date [...] 3b chronic kidney disease (HCC),Atherosclero sis of [place] coronary artery of [place] heart without angina pectoris Take 1 Tablet by mouth in the morning. 90 Tablet 1 07/31/2023 Active Sertraline HCl 100 MG Oral Tablet (Zoloft)Indication s:Adjustment disorder with depressed mood Take 1 Tablet by mouth in the morning. 90 Tablet 1 07/31/2023 Active Warfarin Sodium 5 MG Oral Tablet (Coumadin)Indicati ons:Longstanding persistent atrial fibrillation (HCC),Anticoagulat ion management encounter,senior care current use of anticoagulant therapy Take 1 to1.5 tablets by mouth every evening OR as directed by anticoagulation clinic 135 Tablet 1 07/31/2023 Active documented as of this encounter (statuses as of 11/10/2023) Active Problems Problem Noted Date Diagnosed Date [...] 08/02/2004 Testicular hypofunction 08/01/2004 CORONARY ATHEROSCLER. OF [place] CORONARY VESSEL 02/29/2004 Atrial fibrillation 02/29/2004 Periodic limb movement disorder BMI 32.0-32.9,adult Diverticulosis documented as of this encounter (statuses as of 11/10/2023) Resolved Problems Problem Noted Date Diagnosed Date [...] as of this encounter (statuses as of 11/10/2023) Immunizations Name Administration Dates Next Due COVID-19 [...] on file documented as of this encounter Progress Notes * Mamta Anne, [facility] - 11/10/2023 12:05 PM EDT Medication Therapy Disease Management - Anticoagulation Patient: Osorio Nagy | : 1945 Subjective Contacts Type Contact Phone/Fax 11/10/2023 12:12 PM EDT Phone (Outgoing) JOHNSON NAGY (Emergency Contact) [phone] Patient-Reported Symptoms: Patient Findings Negatives: Signs/symptoms of thrombosis, Signs/symptoms of bleeding, Change in health, Change in alcohol use, Change in activity, Upcoming invasive procedure, Missed doses, Extra doses, Change in medications, Change in diet/appetite, Bruising Objective Current Warfarin Dose As of 11/10/2023 Warfarin maintenance plan: 5 mg (5 mg x 1) every Tue, Rut, Sat; 7.5 mg (5 mg x 1.5) all other days INR Result As of 11/10/2023 INR goal: 2.0-3.0 INR used for dosing: No new INR available at time of encounter Assessment & Plan Warfarin Plan As of 11/10/2023 Full warfarin instructions: 11/09: 5 mg Next INR check: 11/11/2023 Repeat PT/INR in 1 day(s) Weekly dose: re-establishiing Additional Dosing Information: Called and spoke with spouse. Ree RN with [facility] currently at patient's house. POC INR machine not working, INR unable to be obtained. Patient was discharged from [facility] on Lovenox 150mg daily. Instructed to take 5mg of warfarin today and will repeat INR with [facility] tomorrow, 11/10. Call placed on clinic schedule to follow up. Of note, KNOT BORER dose listed below. Patient significant less ambulatory d/t recent back surgery. Likelywill need decreased dose upon re-establishing. Description KNOT BORER dose: 5 mg (5 mg x 1) every Tue, Rut, Sat; 7.5 mg (5 mg x 1.5) all other days Mamta Anne [facility] Clinical Pharmacist 11/10/2023, 12:05 PM documented in this encounter Plan of Treatment Upcoming Encounters Date Type Department Care Team (Late st Contact Info) Description 11/11/2023 5:40 PM EDT Anticoagulation Pharmacy, [address] [place] [address] [place] [address] 11/14/2023 2:40 PM EDT Office Visit Family [address] [phone] Danny Alberts MD [address] [place] [address] [place] [address] 02/06/2024 10:00 AM EDT Office Visit [address] [place] [phone] Franchesca Baker MD [address] [place] [address] [place] [address] 04/24/2024 1:30 PM EDT Nurse Only Rheumatology [address] [phone] [place], Nurse Rheum [address] [place] [phone] Scheduled Procedures Name Priority Associated Diagnoses Date/Ti [...] 04/20/2021, 07/06/2020, Additional history exists Albumin/Creatinine Ratio 03/11/2024 023, 01/23/2022, 07/07/2020, Additional history exists Influenza Vaccine (FLU shot) (Season Ended) 2024 05/29/2022, 03/29/2022, 04/20/2021, Additional history exists GFR 04/18/2024 10/17/2023, 09/2023, 02/25/2023, Additional history exists CKD HGB USE SMARTSET 03812 07/31/202407/31, 08/14/2021, 08/14/2021, Additional history exists CKD PHOS USE SMARTSET 96478 07/31/20240 09/2023, 01/23/2022, 02/06/2021, Additional history exists COLONOSCOPY-EVERY 3 YRS AGES 18-100 08/21/2026 08/21/2023, 05/06/2020, 10/26/2016, Additional history exists Pneumococcal Vaccine: 65+ Years Completed 07/12/2017, 06/16/2015, 05/20/2014, Additional history exists VITAMIN D LEVEL ONCE IN A LIFETIME-USE SMARTSET# 22558 Completed 10/17/2023, 09/03/2022, 02/06/2021, Additional history exists [...] this encounter Medical Devices Implanted Type Area Elderly Companion Device Identifier Shelf Expiration Date Model / Serial / Lot Screw Cortical Drp 3.5x16mm - [id number] Implanted:Qty: 1 on 03/10/2020 by Triston Casas DO at [facility] Left: Lower Arm [employer] AR-8735-16 / / Plt Volar Distal Rad Std Lt 5h - [id number] Implanted:Qty: 1 on 03/10/2020 by Triston Casas DO at [facility] Left: Lower Arm [employer] AR-8916VSL- 05 / / Screw Peggy Ti 2.4x22mm - [id number] Implanted:Qty: 2 on 03/10/2020 by Triston Casas DO at [facility] Left: Lower Arm [employer] AR-8724V-22 / / Screw Peggy Ti 2.4x20mm - [id number] Implanted:Qty: 3 on 03/10/2020 by Triston Casas DO at [facility] Left: Lower Arm [employer] AR-8724V-20 / / Screw Peggy Ti 2.4x18mm - [id number] Implanted:Qty: 1 on 03/10/2020 by Triston Casas DO at [facility] Left: Lower Arm [employer] AR-8724V-18 / / Screw Peggy Ti 2.4x16mm - [id number] Implanted:Qty: 1 on 03/10/2020 by Triston Casas DO at [facility] Left: Lower Arm [employer] AR-8724V-16 / / Screw Locking Drp 3.5x16mm - [id number] Implanted:Qty: 1 on 03/10/2020 by Triston Casas DO at [facility] Left: Lower Arm [employer] AR-8735L-16 / / Screw Locking Drp 3.5x18mm - [id number] Implanted:Qty: 1 on 03/10/2020 by Triston Casas DO at [facility] Left: Lower Arm [employer] AR-8735L-18 / / documented as of this encounter Visit Diagnoses Diagnosis Longstanding persistent atrial fibrillation (HCC)- Primary documented in this encounter Advance Directives Latest Code Status on File Code Status Date Activated Date Inactivated Comments Full Code 01/03/2021 9:30 AM 01/03/2021 3:20 PM This or jordan reflects the patients wishes and were consensually agreed upon. Care Teams U.[place]. Representative Relationship Specialty Start Date End Date Danny Alberts MD [address] [place] [address] [place] [phone] PCP - General Family Medicine 06/02/21 documented as of this encounter
--- OUTSIDE RECORDS SUMMARY | 2023-11-12 02:46 | External Medical Summary | Summary of Care ---
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 OF [place] CORONARY VESSEL 02/29/2004 Atrial fibrillation 02/29/2004 Periodic [...] Calling from: [facility] Patient was Admitted to: [facility], for: Lower back pain, S/P Fusion from 10/29/23 to 11/08/23 Referral ordered by: Dr. Roman (Attending Physician) Referral received for: Group Home Start of care completed on: 11/10/23 Report/Concerns of: See below Vitals: T 98.4 P 78 RR 18 BP 118/62 SP O2 99% R/A Lung sounds - Clear Weight - 235 lbs per [facility] notes Blood sugar - N/A see below Narrative: Patients A1C at [facility] was 7.4, patient told Ree that he [...] back Ree with advice or orders at [phone] Please fax orders to [facility] documented in this encounter Plan of Treatment Upcoming Encounters Date Type Department Care Team (Late st Contact Info) Description 11/11/2023 5:40 PM EDT Anticoagulation Pharmacy, [address] [place] [phone] [place] [address] 11/25/2023 2:00 PM EDT [address] [phone] Danny Alberts MD [address] [place] [address] [place] [address] 02/06/2024 10:00 AM EDT Office Visit [address] [place] [phone] Franchesca Baker MD [address] [place] [address] [place] [address] 04/24/2024 1:30 PM EDT Nurse Only Rheumatology [address] [place] [phone] [place], Nurse Rheum [address] [place] [phone] Scheduled Procedures Name [...] Additional history exists CKD HGB USE SMARTSET 22071 07/31/202407/31, 08/14/2021, 08/14/2021, Additional history exists CKD PHOS USE SMARTSET 83522 07/31/2024 01/0 09/2023, 01/23/2022, 02/06/2021, Additional history exists COLONOSCOPY-EVERY 3 YRS AGES 18-100 08/21/2026 08/21/2023, 05/06/2020, 10/26/2016, Additional history exists Pneumococcal Vaccine: 65+ Years Completed 07/12/2017, 06/16/2015, 05/20/2014, Additional history exists VITAMIN D LEVEL ONCE IN A LIFETIME-USE SMARTSET# 57915 Completed 10/17/2023, 09/03/2022, 02/06/2021, Additional history exists [...] this encounter Medical Devices Implanted Type Area General Practitioner Device Identifier Shelf Expiration Date Model / Serial / Lot Screw Cortical Drp 3.5x16mm - [id number] Implanted:Qty: 1 on 03/10/2020 by Triston Casas DO at [facility] Left: Lower Arm [employer] AR-8735-16 / / Plt Volar Distal Rad Std Lt 5h - [id number] Implanted:Qty: 1 on 03/10/2020 by Triston Casas DO at [facility] Left: Lower Arm [employer] AR-8916VSL- 05 / / Screw Peggy Ti 2.4x22mm - [id number] Implanted:Qty: 2 on 03/10/2020 by Triston Casas DO at [facility] Left: Lower Arm [employer] AR-8724V-22 / / Screw Peggy Ti 2.4x20mm - [id number] Implanted:Qty: 3 on 03/10/2020 by Triston Casas DO at [facility] Left: Lower Arm [employer] AR-8724V-20 / / Screw Peggy Ti 2.4x18mm - [id number] Implanted:Qty: 1 on 03/10/2020 by Triston Casas DO at [facility] Left: Lower Arm [employer] AR-8724V-18 / / Screw Peggy Ti 2.4x16mm - [id number] Implanted:Qty: 1 on 03/10/2020 by Triston Casas DO at [facility] Left: Lower Arm [employer] AR-8724V-16 / / Screw Locking Drp 3.5x16mm - [id number] Implanted:Qty: 1 on 03/10/2020 by Triston Casas, DO at OR [facility] Left: Lower Arm [employer] AR-8735L-16 / / Screw Locking Drp 3.5x18mm - [id number] Implanted:Qty: 1 on 03/10/2020 by Triston Casas, DO at [facility] Left: Lower Arm [employer] AR-8735L-18 / / documented as of this encounter Advance Directives Latest Code Status on File Code Status Date Activated Date Inactivated Comments Full Code 01/03/2021 9:30 AM 01/03/2021 3:20 PM This or jordan reflects the patients wishes and were consensually agreed upon. Care Teams Associate School Psychologist Relationship Specialty Start Date End Date Franchesca Baker MD [address] [place] [address] [place] [phone] PCP - General Family Medicine 11/11/23 documented as of this encounter
--- OUTSIDE RECORDS SUMMARY | 2023-11-12 02:46 | External Medical Summary | Summary of Care ---
Author Name Unknown Organization [facility] Address [address] [place] [address] Phone [phone] Care Team Providers Care Template Cutter Name Role Phone Danny Alberts MD Primary Care Provider Reason for Visit * Reason Comments Dosage Adjustment Via Phone (anticoag Cl inic) Encounter Details Date Type Department Care Team (Latest Contact Info) Description 11/08/2023 5:10 PM EDT Anticoagulation Pharmacy, [address] [place] [phone] [place] [address] Longstanding persistent atrial fibrillation (HCC)* Allergies Active Allergy Reactions Criticality Noted Date Comments Codeine Nausea/vomiting High 11/13/2017 Other Reaction(s): N/V Morphine High 05/22/2002 Other Reaction(s): N/V Morphine And Related 05/22/2002 documented as of this encounter (statuses as of 11/08/2023) Medications Medication Sig Dispensed Refills Start Date [...] 3b chronic kidney disease (HCC),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 90 Tablet 1 07/31/2023 Active Sertraline HCl 100 MG Oral Tablet (Zoloft)Indication s:Adjustment disorder with depressed mood Take 1 Tablet by mouth in the morning. 90 Tablet 1 07/31/2023 Active Warfarin Sodium 5 MG Oral Tablet (Coumadin)Indicati ons:Longstanding persistent atrial fibrillation (HCC),Anticoagulat ion management encounter,halfway current use of anticoagulant therapy Take 1 to1.5 tablets by mouth every evening OR as directed by anticoagulation clinic 135 Tablet 1 07/31/2023 Active documented as of this encounter (statuses as of 11/08/2023) Active Problems Problem Noted Date Diagnosed Date [...] 08/02/2004 Testicular hypofunction 08/01/2004 CORONARY ATHEROSCLER. OF [place] CORONARY VESSEL 02/29/2004 Atrial fibrillation 02/29/2004 Periodic limb movement disorder BMI 32.0-32.9,adult Diverticulosis documented as of this encounter (statuses as of 11/08/2023) Resolved Problems Problem Noted Date Diagnosed Date [...] as of this encounter (statuses as of 11/08/2023) Immunizations Name Administration Dates Next Due COVID-19 [...] of this encounter Progress Notes * Mamta Anne [facility] - 11/08/2023 3:47 PM EDT Images from the original note were not included. Medication Therapy Disease Management - Anticoagulation Patient: Osorio Harmon | : 1945 Subjective Patient-Reported Symptoms: Objective Current Warfarin Dose As of 11/08/2023 Warfarin maintenance plan: 5 mg (5 mg x 1) every Tue, Rut, Sat; 7.5 mg (5 mg x 1.5) all other days INR Result As of 11/08/2023 INR goal: 2.0-3.0 INR used for dosin.0 (11/08/2023) Assessment & Plan Warfarin Plan As of 11/08/2023 Full warfarin instructions: 5 mg every Tue, Rut, Sat; 7.5 mg all other days No change documented: Mamta Anne [facility] Next INR check: 11/10/2023 Repeat PT/INR in 2 day(s) Weekly dose: re-establishing Additional Dosing Information: + Lovenox bridge upon 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 # [phone] Ok to use fingerstick Dx: Longstanding persistent atrial fibrillation (HCC) (Primary) [I48.11] Ordering provider: Danny Alberts MD NPI: [id number] [facility] can be reached at or [phone] with any questions or problems Please fax INR results to [facility] at [phone] [facility] can be reached at with any questions or problems Mamta Anne [facility] Clinical Pharmacist 11/08/2023, 3:48 PM * Mamta Anne RPh - 11/08/2023 8:58 AM EDT Medication Therapy Disease Management - Anticoagulation Patient: Osorio Harmon | : 1945 Called and spoke with spouse, Karena. ([phone]) 9:07 AM - Patient still admitted at [facility] at this time. Possible plans of discharge today. Discussedobtaining INR. Likely to be discharged with home health services, can look towards utilizing. Will continue to follow up on status today. INR currently pending per [facility] records. 2:44 PM - Spoke with Clint Delaney RN. Patient being discharged this evening. INR today 1.0. 7.5mg of Coumadin given yesterday and today. Discharged with Lovenox bridging. [facility] planning to see patient on 11/09. Called and spoke with nurse Ree. ([phone]) She is agreeable to obtain INR and call to [facility] voicemail. Call placed on-call schedule to follow up. Mamta Anne RP, PharmD Clinical Pharmacist - Customer Relationship Specialist Medication Therapy Disease Management Clinic 11/08/2023, 3:51 PM Ph.[phone] documented in this encounter Plan of Treatment Upcoming Encounters Date Type Department Care Team (Late st Contact Info) Description 11/10/2023 7:00 AM EDT Anticoagulation Pharmacy Call Center [phone] [facility] [place] [address] [facility] [address] [facility] [address] 11/14/2023 2:40 PM EDT Office Visit Family Medicine [address] [phone] Danny Alberts MD [address] [place] [address] [place] [address] 02/06/2024 10:00 AM EDT Office Visit Family [address] [phone] Franchesca Baker MD [address] [place] [address] [place] [address] 04/24/2024 1:30 PM EDT Nurse Only Rheumatology [address] [place] [phone] [place], Nurse Rheum [address] [place] [phone] Scheduled Procedures Name Priority Associated Diagnoses Date/Ti [...] 04/20/2021, 07/06/2020, Additional history exists Albumin/Creatinine Ratio 03/11/202403/11/2 023, 01/23/2022, 07/07/2020, Additional history exists Influenza Vaccine (FLU shot) (Season Ended) 2024 05/29/2022, 03/29/2022, 04/20/2021, Additional history exists GFR 04/18/2024 10/17/2023, 09/2023, 02/25/2023, Additional history exists CKD HGB USE SMARTSET 44955 07/31/202407/31, 08/14/2021, 08/14/2021, Additional history exists CKD PHOS USE SMARTSET 27087 07/31/[address]240 09/2023, 01/23/2022, 02/06/2021, Additional history exists COLONOSCOPY-EVERY 3 YRS AGES 18-100 08/21/2026 08/21/2023, 05/06/2020, 10/26/2016, Additional history exists Pneumococcal Vaccine: 65+ Years Completed 07/12/2017, 06/16/2015, 05/20/2014, Additional history exists VITAMIN D LEVEL ONCE IN A LIFETIME-USE SMARTSET# 31557 Completed 10/17/2023, 09/03/2022, 02/06/2021, Additional history exists [...] this encounter Medical Devices Implanted Type Area Vortex Operator Device Identifier Shelf Expiration Date Model / Serial / Lot Screw Cortical Drp 3.5x16mm - [id number] Implanted:Qty: 1 on 03/10/2020 by Triston Casas DO at [facility] Left: Lower Arm [employer] AR-8735-16 / / Plt Volar Distal Rad Std Lt 5h - [id number] Implanted:Qty: 1 on 03/10/2020 by Triston Casas DO at [facility] Left: Lower Arm [employer] AR-8916VSL- 05 / / Screw Peggy Ti 2.4x22mm - [id number] Implanted:Qty: 2 on 03/10/2020 by Triston Casas DO at [facility] Left: Lower Arm [employer] AR-8724V-22 / / Screw Peggy Ti 2.4x20mm - [id number] Implanted:Qty: 3 on 03/10/2020 by Triston Casas DO at [facility] Left: Lower Arm [employer] AR-8724V-20 / / Screw Peggy Ti 2.4x18mm - [id number] Implanted:Qty: 1 on 03/10/2020 by Triston Casas DO at [facility] Left: Lower Arm [employer] AR-8724V-18 / / Screw Peggy Ti 2.4x16mm - [id number] Implanted:Qty: 1 on 03/10/2020 by Triston Casas DO at [facility] Left: Lower Arm [employer] AR-8724V-16 / / Screw Locking Drp 3.5x16mm - [id number] Implanted:Qty: 1 on 03/10/2020 by Triston Casas DO at [facility] Left: Lower Arm [employer] AR-8735L-16 / / Screw Locking Drp 3.5x18mm - [id number] Implanted:Qty: 1 on 03/10/2020 by Triston Casas DO at [facility] Left: Lower Arm [employer] AR-8735L-18 / / documented as of this encounter Procedures Procedure Name Priority Date/Time Associated Diagnosis Comments OUTSIDE LAB-PT/INR Routine 11/08/2023 documented in this encounter Results * OUTSIDE LAB-PT/INR (11/08/2023) INR-OUTSIDE LAB 1.0 11/08/2023 Narrative Resulting Agency Comment [facility] History Per Patient LABORATORY documented in this encounter Visit Diagnoses Diagnosis Longstanding persistent atrial fibrillation (HCC)- Primary documented in this encounter Advance Directives Latest Code Status on File Code Status Date Activated Date Inactivated Comments Full Code 01/03/2021 9:30 AM 01/03/2021 3:20 PM This or jordan reflects the patients wishes and were consensually agreed upon. Care Teams Template Cutter Relationship Specialty Start Date End Date Danny Alberts MD [address] [place] [address] [place] [address] PCP - General Family Medicine 06/02/21 documented as of this encounter
--- OUTSIDE RECORDS SUMMARY | 2023-11-12 02:46 | External Medical Summary | Summary of Care ---
Author Name Unknown Organization [facility] Address [address] [place] [address] Phone [phone] Care Team Providers Care Clinical Assistant Name Role Phone Danny Alberts MD Primary Care Provider Encounter Details Date Type Department Care Team (Late st Contact Info) Description 10/31/2023 Result Scan Unspecified Department Aubrey Castillo MD [address] [place] [address] <No scans attached> Allergies Active Allergy Reactions Criticality Noted Date Comments Codeine Nausea/vomiting High 11/13/2017 Other Reaction(s): N/V Morphine High 05/22/2002 Other Reaction(s): N/V Morphine And Related 05/22/2002 documented as of this encounter (statuses as of 10/31/2023) Medications Medication Sig Dispensed Refills Start Date [...] 3b chronic kidney disease (HCC),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 OF [place] CORONARY VESSEL 02/29/2004 Atrial fibrillation 02/29/2004 Periodic limb movement disorder BMI 32.0-32.9,adult Diverticulosis documented as of this encounter (statuses as of 10/31/2023) Resolved Problems Problem Noted Date Diagnosed Date [...] as of this encounter (statuses as of 10/31/2023) Immunizations Name Administration Dates Next Due COVID-19 [...] on file documented as of this encounter Plan of Treatment Upcoming Encounters Date Type Department Care Team (Late st Contact Info) Description 02/06/2024 10:00 AM EDT Office Visit Family Medicine [address] [place] [phone] Franchesca Baker MD [address] [place] [address] [place] [address] 04/24/2024 1:30 PM EDT Nurse Only Rheumatology [address] [place] [phone] [place], Nurse [address] [place] [phone] Scheduled Procedures Name Priority Associated Diagnoses Date/Ti [...] Additional history exists CKD HGB USE SMARTSET 92179 07/31/202407/31, 08/14/2021, 08/14/2021, Additional history exists CKD PHOS USE SMARTSET 78701 07/31/202409/2023, 01/23/2022, 02/06/2021, Additional history exists COLONOSCOPY-EVERY 3 YRS AGES 18-100 08/21/2026 08/21/2023, 05/06/2020, 10/26/2016, Additional history exists Pneumococcal Vaccine: 65+ Years Completed 07/12/2017, 06/16/2015, 05/20/2014, Additional history exists VITAMIN D LEVEL ONCE IN A LIFETIME-USE SMARTSET# 41321 Completed 10/17/2023, 09/03/2022, 02/06/2021, Additional history exists [...] this encounter Medical Devices Implanted Type Area Sales Apprentice Device Identifier Shelf Expiration Date Model / Serial / Lot Screw Cortical Drp 3.5x16mm - [id number] Implanted:Qty: 1 on 03/10/2020 by Triston Casas DO at OR [facility] Left: Lower Arm [employer] AR-8735-16 / / Plt Volar Distal Rad Std Lt 5h - [id number] Implanted:Qty: 1 on 03/10/2020 by Triston Casas DO at [facility] Left: Lower Arm [employer] AR-8916VSL- 05 / / Screw Peggy Ti 2.4x22mm - [id number] Implanted:Qty: 2 on 03/10/2020 by Triston Casas, DO at [facility] Left: Lower Arm [employer] AR-8724V-22 / / Screw Peggy Ti 2.4x20mm - [id number] Implanted:Qty: 3 on 03/10/2020 by Triston Casas, DO at [facility] Left: Lower Arm [employer] AR-8724V-20 / / Screw Peggy Ti 2.4x18mm - [id number] Implanted:Qty: 1 on 03/10/2020 by Triston Casas, DO at [facility] Left: Lower Arm [employer] AR-8724V-18 / / Screw Peggy Ti 2.4x16mm - [id number] Implanted:Qty: 1 on 03/10/2020 by Triston Casas, DO at [facility] Left: Lower Arm [employer] AR-8724V-16 / / Screw Locking Drp 3.5x16mm - [id number] Implanted:Qty: 1 on 03/10/2020 by Triston Casas, DO at [facility] Left: Lower Arm [employer] AR-8735L-16 / / Screw Locking Drp 3.5x18mm - [id number] Implanted:Qty: 1 on 03/10/2020 by Triston Casas, DO at [facility] Left: Lower Arm [employer] AR-8735L-18 / / documented as of this encounter Procedures Procedure Name Priority Date/Time Associated Diagnosis Comments CARDIOLOGY SCANNED RESULT 10/31/2023 documented in this encounter Results * CARDIOLOGY SCANNED RESULT (10/31/2023) 10/31/2023 Aubrey Casitllo MD OTHER documented in this encounter Advance Directives Latest Code Status on File Code Status Date Activated Date Inactivated Comments Full Code 01/03/2021 9:30 AM 01/03/2021 3:20 PM This or jordan reflects the patients wishes and were consensually agreed upon. Care Teams Clinical Assistant Relationship Specialty Start Date End Date Danny Alberts MD [address] [place] [address] [place] [address] PCP - General Family Medicine 06/02/21 documented as of this encounter
--- OUTSIDE RECORDS SUMMARY | 2023-11-12 02:46 | External Medical Summary | Summary of Care ---
Author Name Unknown Organization [facility] Address [address] [place] [address] Phone [phone] Care Team Providers Care Electrician Apprentice Name Role Phone Danny Alberts MD Primary Care Provider Reason for Visit * Reason Onset Date Comments Hospital Follow-Up 11/07/2023 Encounter Details Date Type Department Care Team (Late Contact Info) Description 11/07/2023 Telephone General Internal Medicine [address] [place] [address] Danny Alberts MD [address] [place] [address] [place] [phone] Hospital Follow-Up Allergies Active Allergy Reactions Criticality Noted Date Comments Codeine Nausea/vomiting High 11/13/2017 Other Reaction(s): N/V Morphine High 05/22/2002 Other Reaction(s): N/V Morphine And Related 05/22/2002 documented as of this encounter (statuses as of 11/07/2023) Medications Medication Sig Dispensed Refills Start Date [...] 3b chronic kidney disease (HCC),Atherosclero sis of [place] coronary artery of [place] heart without angina pectoris Take 1 Tablet by mouth in the morning. 90 Tablet 1 07/31/2023 Active Sertraline HCl 100 MG Oral Tablet (Zoloft)Indication s:Adjustment disorder with depressed mood Take 1 Tablet by mouth in the morning. 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 OF [place] CORONARY VESSEL 02/29/2004 Atrial fibrillation 02/29/2004 Periodic limb movement disorder BMI 32.0-32.9,adult Diverticulosis documented as of this encounter (statuses as of 11/07/2023) Resolved Problems Problem Noted Date Diagnosed Date [...] as of this encounter (statuses as of 11/07/2023) Immunizations Name Administration Dates Next Due COVID-19 [...] encounter Miscellaneous Notes * Telephone Encounter - Mamta Anne RPh - 11/07/2023 4:17 PM EDT Noted by [facility]. Per [facility] records patient likely discharged with home health services. Call placed tomorrow to f/u with patient and coordinate INR monitoring. Of note, previous dose: 7.5 mg (5 mg x 1.5) every Mon, Wed, Fri; 5 mg (5 mg x 1) all other days Mamta Anne RPh, PharmD Clinical Pharmacist - Environmental Inspector Medication Therapy Disease Management [facility] 11/07/2023, 4:23 PM [phone] * Telephone Encounter - Clint Delaney RN - 11/07/2023 12:58 PM EDT Patient discharged home from [facility] 11/07/23. Patient's coumadin was held for lumbar surgery. INR on 11/07/23 is 1.3. Coumadin resumed to home dosing. Please follow up with INR and further instruction/education. Thank you documented in this encounter Plan of Treatment Upcoming Encounters Date Type Department Care Team (Late st Contact Info) Description 11/08/2023 5:10 PM EDT Anticoagulation Pharmacy, [address] [place] [phone] [place] [phone] 11/14/2023 2:40 PM EDT Office Visit Family Medicine [address] [place] [phone] Danny Alberts MD [address] [place] [address] [place] [phone] 02/06/2024 10:00 AM EDT Office Visit Family Medicine [address] [place]8 Franchesca Baekr MD [address] [place] [address] [place] [phone] 04/24/2024 1:30 PM EDT Nurse Only Rheumatology [address] [place] [phone] [employer], Nurse [address] [place] [phone] Scheduled Procedures Name [...] Additional history exists CKD HGB USE SMARTSET 40528 07/31/202407/31, 08/14/2021, 08/14/2021, Additional history exists CKD PHOS USE SMARTSET 94573 07/31/202409/2023, 01/23/2022, 02/06/2021, Additional history exists COLONOSCOPY-EVERY 3 YRS AGES 18-100 08/21/2026 08/21/2023, 05/06/2020, 10/26/2016, Additional history exists Pneumococcal Vaccine: 65+ Years Completed 07/12/2017, 06/16/2015, 05/20/2014, Additional history exists VITAMIN D LEVEL ONCE IN A LIFETIME-USE SMARTSET# 58040 Completed 10/17/2023, 09/03/2022, 02/06/2021, Additional history exists [...] this encounter Medical Devices Implanted Type Area Hoop Punch Operator Helper Device Identifier Shelf Expiration Date Model / Serial / Lot Screw Cortical Drp 3.5x16mm - [id number] Implanted:Qty: 1 on 03/10/2020 by Triston Casas, at [facility] Left: Lower Arm [employer] AR-8735-16 / / Plt Volar Distal Rad Std Lt 5h - [id number] Implanted:Qty: 1 on 03/10/2020 by Triston Casas DO at [facility] Left: Lower Arm [employer] AR-8916VSL- 05 / / Screw Peggy Ti 2.4x22mm - [id number] Implanted:Qty: 2 on 03/10/2020 by Triston Casas DO at [facility] Left: Lower Arm [employer] AR-8724V-22 / / Screw Peggy Ti 2.4x20mm - [id number] Implanted:Qty: 3 on 03/10/2020 by Triston Casas DO at [facility] Left: Lower Arm [employer] AR-8724V-20 / / Screw Peggy Ti 2.4x18mm - [id number] Implanted:Qty: 1 on 03/10/2020 by Triston Casas, at [facility] Left: Lower Arm [employer] AR-8724V-18 / / Screw Peggy Ti 2.4x16mm - [id number] Implanted:Qty: 1 on 03/10/2020 by Triston Casas, at [facility] Left: Lower Arm [employer] AR-8724V-16 / / Screw Locking Drp 3.5x16mm - [id number] Implanted:Qty: 1 on 03/10/2020 by Triston Casas DO at [facility] Left: Lower Arm [employer] AR-8735L-16 / / Screw Locking Drp 3.5x18mm - [id number] Implanted:Qty: 1 on 03/10/2020 by Triston Casas DO at [facility] Left: Lower Arm [employer] AR-8735L-18 / / documented as of this encounter Procedures Procedure Name Priority Date/Time Associated Diagnosis Comments OUTSIDE LAB-PT/INR Routine 11/04/2023 OUTSIDE LAB-PT/INR Routine 11/03/2023 OUTSIDE LAB-PT/INR Routine 11/02/2023 OUTSIDE LAB-PT/INR Routine 11/01/2023 OUTSIDE LAB-PT/INR Routine 10/31/2023 OUTSIDE LAB-PT/INR Routine 10/30/2023 documented in this encounter Results * OUTSIDE LAB-PT/INR (11/04/2023) [facility] INR-OUTSIDE LAB 1.3 11/04/2023 Narrative Resulting Agency Comment [facility] History Per Patient LABORATORY * OUTSIDE LAB-PT/INR (11/03/2023) [facility] INR-OUTSIDE LAB 1.5 11/03/2023 Narrative Resulting Agency Comment [facility] History Per Patient LABORATORY * OUTSIDE LAB-PT/INR (11/02/2023) [facility] INR-OUTSIDE LAB 2.0 11/02/2023 Narrative Resulting Agency Comment [facility] History Per Patient LABORATORY * OUTSIDE LAB-PT/INR (11/01/2023) [facility] INR-OUTSIDE LAB 2.9 11/01/2023 Narrative Resulting Agency Comment [facility] History Per Patient LABORATORY * OUTSIDE LAB-PT/INR (10/31/2023) [facility] INR-OUTSIDE LAB 2.4 10/31/2023 Narrative Resulting Agency Comment [facility] History Per Patient LABORATORY * OUTSIDE LAB-PT/INR (10/30/2023) [facility] INR-OUTSIDE LAB 2.5 10/30/2023 Narrative Resulting Agency Comment [facility] History Per Patient LABORATORY documented in this encounter Visit Diagnoses Diagnosis Longstanding persistent atrial fibrillation (HCC)- Primary documented in this encounter Advance Directives Latest Code Status on File Code Status Date Activated Date Inactivated Comments Full Code 01/03/2021 9:30 AM 01/03/2021 3:20 PM This or jordan reflects the patients wishes and were consensually agreed upon. Care Teams Electrician Apprentice Relationship Specialty Start Date End Date Dnany Alberts MD [address] [place] [address] [place] [phone] PCP - General Family Medicine 06/02/21 documented as of this encounter
[2023-11-12] MEDS ORDERED: INSULIN ASPART PER UNIT CHARGE SC SCH (07:30)
--- OUTSIDE RECORDS SUMMARY | 2023-11-12 07:36 | External Medical Summary | Summary of Care ---
Author Name Unknown Organization [facility] Address [address] [place] [address] Phone [phone] Care Team Providers Care Founder And Ceo Name Role Phone Franchesca Baker MD Primary Care Provide r Reason for Visit * Reason Comments Dosage Adjustment Via Phone (anticoag Cl inic) Encounter Details Date Type Department Care Team (Latest Contact Info) Description 11/11/2023 5:40 PM EDT Anticoagulation Pharmacy, [address] [place] [phone] [place] [phone] Longstanding persistent atrial fibrillation (HCC)* Allergies Active [...] 3b chronic kidney disease (HCC),Atherosclero sis of [place] coronary artery of [place] heart without angina pectoris Take 1 Tablet by mouth in the morning. 90 Tablet 1 07/31/2023 Active Sertraline HCl 100 MG Oral Tablet (Zoloft)Indication s:Adjustment disorder with depressed mood Take 1 Tablet by mouth in the morning. 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 OF [place] CORONARY VESSEL 02/29/2004 Atrial fibrillation 02/29/2004 Periodic [...] as of this encounter Progress Notes * Lisseth Asencio CPhT - 11/11/2023 12:28 PM EDT [facility] nurse Parul calling in today's INR 1.2, she states patient did not take the Lovenox this morning, still has some, but he was told to only take the three doses. Lisseth Asencio CPhT, [place] Corporate Receptionist II [facility] ([facility]) * Mamta Anne, [facility] - 11/11/2023 12:19 PM EDT Images from the original note were not included. Medication Therapy Disease Management - Anticoagulation Patient: Osorio Nagy | : 1945 Subjective Contacts Type Contact Phone/Fax 11/11/2023 12:23 PM EDT Phone (Outgoing) [facility] [phone] Called and spoke with Adrianne check on status of PT/INR 11/11/2023 12:48 PM EDT Phone (Outgoing) JOHNSON NAGY (Emergency Contact) [phone] Spoke to spouse Patient-Reported Symptoms: Patient Findings Positives: Change in activity (Moving with walker) Negatives: Signs/symptoms of thrombosis, Signs/symptoms of bleeding, Change in health, Change in alcohol use, Upcoming invasive procedure, Missed doses, Extra doses, Change in medications, Change in diet/appetite, Bruising Objective Current Warfarin Dose As of 11/11/2023 Warfarin maintenance plan: No maintenance plan INR Result As of 11/11/2023 INR goal: 2.0-3.0 INR used for dosin.2 (11/11/2023) Assessment & Plan Warfarin Plan As of 11/11/2023 Full warfarin instructions: 11/10: 7.5 mg; 11/11: 5 mg; 11/12: 5 mg Next INR check: 11/14/2023 Repeat PT/INR in 3 day(s) Weekly dose: re-establishing Additional Dosing Information: Spoke with spouse. Confirmed medication adherence. Notes that she has one last 150mg Lovenox syringe. (Discharged on 150mg daily). Agreeable to give last injection today and bolus. [facility] Description OPERATER dose: 5 mg (5 mg x 1) every e, Rut, Sat; 7.5 mg (5 mg x 1.5) all other days Faxed orders to [facility] at [phone]. # [phone] Ok to use fingerstick Dx: Longstanding persistent atrial fibrillation (HCC) (Primary) [I48.11] Ordering provider: Danny Alberts MD NPI: [id number] [facility] can be reached at or [phone] with any questions or problems Please fax INR results to [facility] at [phone] [facility] can be reached at with any questions or problems Mamta Anne [facility] Clinical Pharmacist 11/11/2023, 12:19 PM documented in this encounter Plan of Treatment Upcoming Encounters Date Type Department Care Team (Late st Contact Info) Description 11/14/2023 5:40 PM EDT Anticoagulation Pharmacy, [address] [place] [phone] [place] [address] 11/25/2023 2:00 PM EDT Office Visit Family Medicine [address] [place] [phone] Danny Alberts MD [address] [place] [address] [place] [address] 02/06/2024 10:00 AM EDT Office Visit Family Medicine [address] [place] [phone] Franchesca Baker MD [address] [place] [address] [place] [address] 04/24/2024 1:30 PM EDT Nurse Only Rheumatology [address] [place] [phone] [place], Nurse Rheum [address] [place] [phone] Scheduled Procedures Name Priority Associated Diagnoses Date/Ti [...] Additional history exists CKD HGB USE SMARTSET 49240 07/31/202407/31, 08/14/2021, 08/14/2021, Additional history exists CKD PHOS USE SMARTSET 95454 07/31/202409/2023, 01/23/2022, 02/06/2021, Additional history exists COLONOSCOPY-EVERY 3 YRS AGES 18-100 08/21/2026 08/21/2023, 05/06/2020, 10/26/2016, Additional history exists Pneumococcal Vaccine: 65+ Years Completed 07/12/2017, 06/16/2015, 05/20/2014, Additional history exists VITAMIN D LEVEL ONCE IN A LIFETIME-USE SMARTSET# 40409 Completed 10/17/2023, 09/03/2022, 02/06/2021, Additional history exists [...] this encounter Medical Devices Implanted Type Area Watch Manufacturing Supervisor Device Identifier Shelf Expiration Date Model / Serial / Lot Screw Cortical Drp 3.5x16mm - [id number] Implanted:Qty: 1 on 03/10/2020 by Triston Casas, at [facility] Left: Lower Arm [employer] AR-8735-16 / / Plt Volar Distal Rad Std Lt 5h - [id number] Implanted:Qty: 1 on 03/10/2020 by Triston Casas DO at [facility] Left: Lower Arm [employer] AR-8916VSL- 05 / / Screw Peggy Ti 2.4x22mm - [id number] Implanted:Qty: 2 on 03/10/2020 by Triston Casas DO at [facility] Left: Lower Arm [employer] AR-8724V-22 / / Screw Peggy Ti 2.4x20mm - [id number] Implanted:Qty: 3 on 03/10/2020 by Triston Casas, at [facility] Left: Lower Arm [employer] AR-8724V-20 / / Screw Peggy Ti 2.4x18mm - [id number] Implanted:Qty: 1 on 03/10/2020 by Triston Casas, at [facility] Left: Lower Arm [employer] AR-8724V-18 / / Screw Peggy Ti 2.4x16mm - [id number] Implanted:Qty: 1 on 03/10/2020 by Triston Casas, at [facility] Left: Lower Arm [employer] AR-8724V-16 / / Screw Locking Drp 3.5x16mm - [id number] Implanted:Qty: 1 on 03/10/2020 by Triston Casas, at [facility] Left: Lower Arm [employer] AR-8735L-16 / / Screw Locking Drp 3.5x18mm - [id number] Implanted:Qty: 1 on 03/10/2020 by Triston Casas, at [facility] Left: Lower Arm [employer] AR-8735L-18 / / documented as of this encounter Procedures Procedure Name Priority Date/Time Associated Diagnosis Comments OUTSIDE LAB-PT/INR Routine 11/11/2023 documented in this encounter Results * OUTSIDE LAB-PT/INR (11/11/2023) INR-OUTSIDE LAB 1.2 History Per Patient LABORATORY documented in this encounter Visit Diagnoses Diagnosis Longstanding persistent atrial fibrillation (HCC)- Primary documented in this encounter Advance Directives Latest Code Status on File Code Status Date Activated Date Inactivated Comments Full Code 01/03/2021 9:30 AM 01/03/2021 3:20 PM This or jordan reflects the patients wishes and were consensually agreed upon. Care Teams Founder And Ceo Relationship Specialty Start Date End Date Franchesca Baker MD [address] [place] [address] [place] [phone] PCP - General Family Medicine 11/11/23 documented as of this encounter
[2023-11-12] MEDS: INSULIN ASPART PER UNIT CHARGE SC SCH ×2 (08:07→17:29)
[2023-11-12] MEDS: PROPRANOLOL HCL LA 80 MG CAPCR PO SCH (10:27)
[2023-11-12] MEDS: lisinopril 10 MG TAB PO SCH (10:27)
[2023-11-12] MEDS: ENOXAPARIN 150 MG/ML SYR SQ SCH (10:27)
[2023-11-12] MEDS: CHOLECALCIFEROL 125 MCG (5,000 UNITS) TAB PO SCH (10:28)
[2023-11-12] MEDS: SERTRALINE HCL 100 MG TABLET PO SCH (10:28)
--- NOTE | 2023-11-12 11:44 | History & Physical Report ---
Date of Service November 12, 2023 Assessment & Plan (1) Neurogenic claudication due to lumbar spinal stenosis: Plan: At this time initiate a short course of IV Decadron as well as pain medication. He is improving significantly. Most likely be able to discharge home in the next day or so. Admission and Anticipated Discharge Date Admission Date: November 11, 2023 History of Present Illness Chief Complaint: Postoperative back pain Primary Care Provider: Franchesca Baker MD This is a 78-year-old presents to the ER yesterday status post lumbar decompression fusion. He had significant onset of back pain making markedly difficult to get in and out of bed and ambulate. He denies any leg pain numbness or tingling. He states overall he is improving. Allergies Allergy/AdvReac Type Severity Reaction Status Date / Time codeine AdvReac Unknown N/V Verified 10/07/23 14:38 morphine AdvReac Unknown N/V Verified 10/07/23 14:38 Home Medications Medication Instructions Recorded Confirmed Type acetaminophen 500 mg tablet 500 mg PO Q6H PRN Pain 08/24/19 11/11/23 History atorvastatin 80 mg tablet 80 mg PO HS 08/24/19 11/11/23 History cholecalciferol (vitamin D3) 125 5,000 units PO QAM 08/24/19 11/11/23 History mcg (5,000 unit) disintegrating tablet lisinopril 10 mg tablet 10 mg PO QAM 08/24/19 11/11/23 History sertraline 100 mg tablet 100 mg PO QAM 08/24/19 11/11/23 History topiramate 100 mg tablet 100 mg PO QPM 06/13/23 11/11/23 History warfarin 5 mg tablet (Jantoven) 5 - 7.5 mg PO UD 06/13/23 11/11/23 History propranolol 80 mg capsule,24 80 mg PO QAM 08/16/23 11/11/23 History hr,extended release oxycodone 5 mg tablet 5 mg PO Q6H PRN pain #30 tabs 11/06/23 11/11/23 Rx tramadol 50 mg tablet 50 mg PO Q6H PRN pain, moderate 11/06/23 11/11/23 Rx #30 tabs enoxaparin 150 mg/mL subcutaneous 150 mg subcut DAILY #3 mL 11/08/23 11/11/23 Rx syringe (Lovenox) Past Med/Surg History Medical History (Updated 11/11/23 @ 20:45 by Flo Aj DO) Kidney disease, chronic, stage III (GFR 30-59 ml/min) Dyslipidemia, goal LDL below 70 DM type 2 causing renal disease Cardiac pacemaker in situ Benign essential tremor Testicular hypofunction Senile osteoporosis Periodic limb movement disorder Pathologic fracture of vertebrae Obstructive sleep apnea of adult Neck pain Fistula Diverticulosis Daytime hypersomnolence Coronary atherosclerosis of [place] coronary vessel Blurry vision Benign neoplasm of large bowel Adjustment disorder with depressed mood History of COVID-19 x4. Most recent beginning of 2022. Continues altered taste and no smell. Experiences sob on exertion. Depression History of colon polyps Knee problem bilat. On anticoagulant therapy warfarin daily Chronic back pain Rectal bleeding on occ. 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 --follows with Dr. Minor Pacemaker replaced on 09/2019 [facility] @ [facility] last check 2 mon ago. Atrial fibrillation reason for warfarin--Dr. Castillo. Sleep apnea no device Cervical radiculopathy limited rom. Ulnar neuropathy of left upper extremity Essential tremor left hand Surgical History (Updated 11/07/23 @ 00:09 by Bhavna Guevara) History of pacemaker original sx and 2 revisions. History of cardioversion multiple History of open reduction and internal fixation (ORIF) procedure left--hardware in place History of lumbar spinal fusion History of cholecystectomy History of colonoscopy with polypectomy History of wisdom tooth extraction History of heart artery stent x2 History of cardiac cath x3--last --total of 2 stents History of cardiac radiofrequency ablation x2 History of carpal tunnel surgery bilt wrists Family History Mother Cardiac disorder Father Cardiac disorder Sister Cardiac disorder Family history of diabetes mellitus Brother Cardiac disorder Family history of diabetes mellitus Other No family history of adverse response to anesthesia Social History Smoking Status: Current some day smoker Tobacco Type: Cigars Cigarettes Per Day: sometimes cigar/advised npo; Second Hand Exposure: No; Do You Dip or Chew Tobacco: No (hx a long time ago); Hx Alcohol Use: Yes Alcohol type: hard liquor Hx Substance Use: No Preferred Language: Macedonian Communication Ability: Effective Visual Impairment: No Limitations Hearing Ability: Normal Mushroom Picker Required: No Beliefs That Will Affect Care: None marital status: Current Living Situation: Spouse Current Living Situation Comment: maddie 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 Incision is healing well. There is no erythema no drainage no significant swelling. Section strength testing. Results & Data Results & Data Vital Signs (Past 12 Hours) Vital Signs Temp Pulse Pulse Resp BP Pulse Ox O2 Del Method 11/12/23 07:46 37 C 77 16 103/69 98 Room Air 11/12/23 04:26 79 16 129/86 99 Room Air Code Status & VTE Plan VTE Prophylaxis Plan VTE Prophylaxis will be ordered: Yes
--- NOTE | 2023-11-12 12:01 | Hospitalist Progress Note ---
Date of Service November 12, 2023 Assessment & Plan (1) Back pain: Plan: Mr. Harmon is a 78-year-old male with past medical history significant for type 2 diabetes, CKD stage III, testicle hypofunction, hypertension, obstructive sleep apnea, history of CAD, A-fib, s/p pacemaker, vitamin D deficiency, osteoporosis, essential tremor, Periodic limb movement disorder, depression who recently on November 04 had a back surgery and was discharged on November 07 comes back with severe back pain. Patient with notable back pain, but otherwise labs not consistent and exam not consistent with superimposed infection. Patient seems to have responded to IV Decadron, which will be continued by Ortho Spine service. #Severe back pain postoperative #Neurogenic claudication 2/2 lumbar stenosis, s/p decompression 11/04 Patient is status post hard removal L5-S1, decompression and fusion L4-5 on November 04 Imaging stable, VS and labs stable No weakness or bowel /bladder incontinence Pain control Further management as per orthopedics -IV decadron with pain management per primary services #Type 2 diabetes Not on meds Sliding scale Will monitor, BG stable thus far #History of A-fib S/p pacemaker On propranolol Currently on Lovenox bridge Will resume Coumadin at 5mg daily #History of CAD s/p stent On statin metoprolol and Coumadin. #Hypertension On lisinopril, propranolol #Hyperlipidemia On statin #CKD stage III Present creatinine 1.5 seems around baseline stable DVT prophylaxis On Lovenox, Coumadin tonight given no indication for surgical intervention Disposition As per Ortho Admission and Anticipated Discharge Date Admission Date: November 11, 2023 Subjective NAEO, sitting in bedside chair Reports pain with movement, improved with straight/stiff posture Denies any fevers, chills, numbness tingling or other acute concerns Physical Exam Constitutional: WD/WN, vitals as above Respiratory: normal respiratory effort, lungs clear to auscultation Cardiovascular: RRR, no murmur, no edema Results & Data Results & Data Vital Signs (Past 12 Hours) Vital Signs Temp Pulse Pulse Resp BP Pulse Ox O2 Del Method 11/12/23 07:46 37 C 77 16 103/69 98 Room Air 11/12/23 04:26 79 16 129/86 99 Room Air Laboratory Results Short CBC 11/11/23 Range/Units 14:35 WBC 11.33 H (4.8-10.8) K/ul Hgb 10.9 L (14.0-18.0) g/dl Hct 34.3 L (42.0-52.0) % Plt Count 190 (130-400) K/uL BMP 11/11/23 14:35 Sodium 136 Potassium 4.5 Chloride 107 Carbon Dioxide 24 BUN 34 H Creatinine 1.58 H Glucose 128 H Calcium 8.2 L Liver Function 11/11/23 Range/Units 14:35 Total Bilirubin 0.9 (0.2-1.0) mg/dl AST 18 (13-39) U/L ALT 18 (7-52) U/L Alkaline Phosphatase 43 (34-104) U/L Albumin 3.2 L (3.4-5.0) gm/dl Medications Administered Home Medications Medication Instructions Recorded Confirmed Last Taken acetaminophen 500 mg tablet 500 mg PO Q6H PRN Pain 08/24/19 11/11/23 10/29/23 atorvastatin 80 mg tablet 80 mg PO HS 08/24/19 11/11/23 10/29/23 cholecalciferol (vitamin D3) 125 5,000 units PO QA 08/24/19 11/11/23 10/29/23 mcg (5,000 unit) disintegrating tablet lisinopril 10 mg tablet 10 mg PO [facility] 08/24/19 11/11/23 10/29/23 sertraline 100 mg tablet 100 mg PO QA 08/24/19 11/11/23 10/29/23 topiramate 100 mg tablet 100 mg PO QPM 06/13/23 11/11/23 10/29/23 warfarin 5 mg tablet (Jantoven) 5 - 7.5 mg PO UD 06/13/23 11/11/23 08/14/23 propranolol 80 mg capsule,24 80 mg PO QA 08/16/23 11/11/23 10/29/23 hr,extended release oxycodone 5 mg tablet 5 mg PO Q6H PRN pain #30 tabs 11/06/23 11/11/23 Unknown tramadol 50 mg tablet 50 mg PO Q6H PRN pain, moderate 11/06/23 11/11/23 Unknown #30 tabs enoxaparin 150 mg/mL subcutaneous 150 mg subcut DAILY #3 mL 11/08/23 11/11/23 Unknown syringe (Lovenox) Active Medications Generic Name Dose Route Start Last Admin Trade Name Freq PRN Reason Stop Dose Admin Atorvastatin Calcium 80 mg 11/11/23 21:00 11/11/23 21:26 Atorvastatin 40 Mg Tab PO 12/11/23 20:59 80 mg HS MEGHA Administration Enoxaparin Sodium 150 mg 11/12/23 09:00 11/12/23 10:27 Enoxaparin 150 Mg/Ml Syr SQ 12/12/23 08:59 150 mg DAILY MEGHA Administration Hydromorphone HCl 1 mg 11/11/23 19:48 11/11/23 20:49 Hydromorphone Inj 1 Mg/Ml Syringe IV 11/25/23 19:47 1 mg Q3H PRN Administration severe pain (scale 7-10) Dexamethasone 8 mg/ Syringe 2 mls @ 1 mls/min 11/11/23 20:00 11/12/23 04:20 IV 11/12/23 12:01 1 mls/min Q8H MEGHA Administration Lactated Ringer's 1,000 mls @ 75 mls/hr 11/11/23 19:48 11/12/23 10:32 Lr IV 12/11/23 19:47 75 mls/hr .[id number] MEGHA Administration Acetaminophen 1,000 mg in 100 mls @ 400 mls/hr 11/11/23 19:48 11/12/23 00:46 Ofirmev IV 11/12/23 19:49 Infused Q8H PRN Infusion Pain Rating 1-3 & Pre PT Insulin Aspart 0 units 11/12/23 06:45 11/12/23 08:07 Insulin Aspart Per Unit Charge SC 12/12/23 06:44 Not Given Q6 MEGHA Lisinopril 10 mg 11/12/23 09:00 11/12/23 10:27 Lisinopril 10 Mg Tab PO 12/12/23 08:59 10 mg QAM MEGHA Administration Propranolol HCl 80 mg 11/12/23 09:00 11/12/23 10:27 Propranolol Hcl La 80 Mg Capcr PO 12/12/23 08:59 80 mg QAM MEGHA Administration Senna/Docusate Sodium 2 tab 11/11/23 21:00 11/11/23 21:26 Docusate Sodium/Senna 50/8.6mg Tab PO 12/11/23 20:59 2 tab HS MEGHA Administration Sertraline HCl 100 mg 11/12/23 09:00 11/12/23 10:28 Sertraline Hcl 100 Mg Tablet PO 12/12/23 08:59 100 mg QAM MEGHA Administration Topiramate 100 mg 11/11/23 21:00 11/11/23 21:27 Topiramate 100 Mg Tab PO 12/11/23 20:59 100 mg QPM MEGHA Administration Vitamin D 125 mcg 11/12/23 09:00 11/12/23 10:28 Cholecalciferol 125 Mcg (5,000 Units) Tab PO 12/12/23 08:59 125 mcg QAM MEGHA Administration (1) Back pain Back pain laterality: unspecified Back pain location: low back pain Chronicity: acute Sciatica presence: unspecified whether sciatica present Qualified Code(s): M54.50 - Low back pain, unspecified
[2023-11-12] MEDS ORDERED: Nursing to Pharmacy Communication SCH (13:45)
[2023-11-12] MEDS: WARFARIN SOD 5 MG TAB PO SCH (17:28)
[2023-11-13] MEDS: oxyCODONE HCL IR 5 MG TAB (IMMEDIATE RELEASE) PO PRN (07:06)
[2023-11-13 07:42] LABS: Hematocrit (blood only) 31.9 % (42.0-52.0); Hemoglobin 10.6 g/dl (14.0-18.0); Mean Corpuscular Hemoglobin 29.9 pg (25.0-34.0); Mean Corpuscular Hgb Conc 33.2 g/dL (32.0-36.0); Mean Corpuscular Volume 90.1 fL (80.0-100.0); Mean Platelet Volume 11.7 fL (9.4-12.4); Platelet Count 213 K/uL (130-400); RDW Coefficient of Variation 14.2 % (11.5-14.5); RDW Standard Deviation 46.6 fL (36.4-46.3); Red Blood Count 3.54 M/uL (4.70-6.10); White Blood Count 23.43 K/ul (4.8-10.8)
[2023-11-13 07:43] LABS: INR 1.1 (0.9-1.1); Prothrombin Time 12.4 Seconds (9.0-12.0)
--- NOTE | 2023-11-13 08:46 | Discharge Summary ---
Date of Service November 13, 2023 Admission HPI Per Admitting Provider This is a 78-year-old presents to the ER yesterday status post lumbar decompression fusion. He had significant onset of back pain making markedly difficult to get in and out of bed and ambulate. He denies any leg pain numbness or tingling. He states overall he is improving. Admission Exam (Per Admitting) Constitutional WD/WN, vitals as above Eyes normal visual grewal by confrontation ENMT external ear and nose normal, oropharynx normal Neck normal visual inspection Respiratory normal respiratory effort Cardiovascular Extremities: normal capillary refill Gastrointestinal (Abdomen) Inspection/Auscultation: abdomen normal to inspection Musculoskeletal Spine: + pain with thoraco-lumbar ROM Extremities: extremities normal to inspection and strength 5/5 throughout Skin no rashes, warm and dry Neurologic normal touch/pain/proprioception and moves all extremities Psychiatric A+Ox3, euthymic affect Eye Contact: good eye contact Discharge Data Consultations 11/11/23 16:08 ED Decision to Admit Stat 11/11/23 17:26 Consult Hospitalist Stat Hospital Course (1) Post-op pain: Osorio went to the ER due to significant/intractable lower back pain postoperatively. He was admitted to Dr. Connolly service. Steroids were given as well as oral and IV pain medication. Pain is under better control. He has been discharged home today. No surgical intervention required. Discharge Instructions ACTIVITY RECOMMENDATIONS: SELF CARE INSTRUCTIONS AFTER THORACIC/LUMBAR FUSIONS 1. You may walk to your tolerance. It is good exercise for your legs and back. Expect some back and intermittent leg aches and pains. 2. You may perform "counter-top" level activities (make a sandwich, nikolai with a project, etc.). 3. No bending or lifting of more than 10 pounds or back twisting of any nature (roll like a log when turning in bed). 4. You may ride in a car for 20-30 minutes at a time. No driving until after your first visit with your doctor. 5. Frequent changes of position and restricting sitting to 30 minutes at a time will help limit the amount of back spasms and stiffness you may experience. 6. You may discontinue the use of ambulatory aids (cane, crutches, etc.) once your strength and confidence allow. 7. You may cylinder press operator the shower and let water strike your incision when you arrive home at least once daily. Do not take a tub bath, sit in a hot tub or go into a swimming pool until after your first recheck in the office. SPECIAL CARE INSTRUCTIONS: VERY IMPORTANT TO READ AND REVIEW A. Your surgical incision has been closed with a cosmetic suture under the skin that will dissolve in about 6 weeks. In 14 days, you can use a pair of clean scissors and cut the suture that is left outside of the skin at the ends of your incision. 1. The small skin tapes can be removed 7 days after surgery if they have not fallen off by that point. 2. You may keep the wound open to air as much as possible to promote healing after post-op day number 5 unless told otherwise by your doctor. 3. If you think the wound looks like it is becoming infected (redness or worsening drainage) and/or you are experiencing fever, chill or worsening back pain and muscle spasms, contact the office so that we may evaluate you as soon as possible. B. Complications are uncommon, but please contact us if you have any signs or symptoms of: 1. wound infection (fever higher than 102.5 degrees F, redness, separation of wound, drainage, or increasing pain from the incision) 2. blood clots in legs (pain, swelling, redness and warmth in legs) 3. urinary tract infection (fever higher than 102.5 degrees F, burning upon urination or increased frequency of urination) 4. nerve problems (inability to walk on your toes or heels, numbness, loss of bowel or bladder control) 5. any other symptoms that concern you C. Please call the office at if you have any concerns or questions about your operation or recovery. D. No smoking! Smoking drastically decreases the chance of a solid fusion. E. Do not take any anti-inflammatory medications (Indocin, Advil, Motrin, Aspirin, Naprosyn, etc.) as these may inhibit the chance of a solid fusion. Tylenol is okay to take for pain. MANAGING PAIN AFTER SPINAL SURGERY 1. Narcotic medication is intended for short-term use and will be provided for surgical pain. Surgical pain usually lasts for a period of 4-6 weeks. Narcotic medication includes Percocet, Vicodin, Darvocet, Tylenol #3 or Lortab. 2. Longer-term pain is more appropriately treated with non-narcotic medication such as Tylenol ES. 3. Muscle spasm is not appropriately treated with narcotics. Muscle relaxers such as Soma, Flexeril or Skelaxin can be used along with Tylenol ES. 4. Remember that we all live with some "aches and pains". This is not unusual or uncommon after an injury or as we get older. a. Back pain is expected and may include muscle spasms for 4 to 6 weeks after surgery. The pain should gradually improve. If the pain worsens for no apparent reason, please contact the office. b. Intermittent leg pain may also be experienced and should not be concerned about unless it worsens for no apparent reason. If so, please contact the office. 5. We will provide appropriate medication within the normal guidelines of their prescribed use. We will also be very cautious and aware of potential abuse and extended duration of patients' medication needs. a. Pain medications are for your comfort and to assist with sleep and rest so that the tissue can heal. They are not provided in order to return to normal activity and should not be used through the day. To do so or worsening pain at night can result from ongoing tissue damage and development of tolerance to the prescribed medicine. 6. Please allow 2-3 days to process refills. Prescriptions will not be mailed but must be picked up at the office. FOLLOW UP VISIT: Keep your scheduled follow-up appointment. Any questions, please call the office at .
--- NOTE | 2023-11-13 09:43 | Hospitalist Progress Note ---
Date of Service November 13, 2023 Assessment & Plan (1) Back pain: Plan Mr. Harmon is a 78-year-old male with past medical history significant for type 2 diabetes, CKD stage III, testicle hypofunction, hypertension, obstructive sleep apnea, history of CAD, A-fib, s/p pacemaker, vitamin D deficiency, osteoporosis, essential tremor, Periodic limb movement disorder, depression who recently on November 04 had a back surgery and was discharged on November 07 comes back with severe back pain. Patient with notable back pain, but otherwise labs not consistent and exam not consistent with superimposed infection. Patient seems to have responded to IV Decadron, which was continued by Ortho Spine service. Severe back pain postoperative Neurogenic claudication 2/2 lumbar stenosis, s/p decompression 11/04 Patient is status post hardware removal L5-S1, decompression and fusion L4-5 on November 04 Imaging stable, VS and labs stable No weakness or bowel /bladder incontinence Pain control Further management as per orthopedics -IV decadron with pain management per primary services Type 2 diabetes hgba1c of 7.4 Not on meds ISS while hospitalized PCP followup especially in setting of recent steroid use. History of A-fib S/p pacemaker On propranolol Resumed coumadin and was on Lovenox bridge since INR was not therapeutic Discharged with the same and advised to follow up with coumadin clinic and PCP after discharge for continued INR monitoring. Coumadin clinic contacted and pcp appt set up for follow up History of CAD s/p stent On statin, metoprolol and Coumadin Hypertension On lisinopril, propranolol Hyperlipidemia On statin CKD stage III Present creatinine 1.5 seems around baseline stable Admission and Anticipated Discharge Date Admission Date: November 11, 2023 Subjective Pt was seen in the AM. Sitting in bed, no cute distress. Stated he still had pain but it was much improved from admission. Review of Systems Review of Systems: All systems reviewed & are unremarkable except as noted in Subjective Physical Exam Physical Exam: General: Alert, oriented. No acute distress Skin: No noted rashes or bruises Psych: Appropriate mood and affect Neuro:Difficulty with movements in the bed, tender to palpation along the spine HEENT: NC/AT Chest: Nontender to palpation. CV: RRR Resp: Breath sounds clear bilaterally, no increased effort of breathing. Abdomen: Soft, nontender, nondistended Extremities: No edema in lower extremities bilaterally. Results & Data Results & Data Vital Signs (Past 12 Hours) Vital Signs Temp Pulse Resp BP Pulse Ox O2 Del Method 11/13/23 09:03 77 120/73 11/13/23 07:37 36.8 C 79 18 128/74 99 Room Air (1) Back pain Back pain laterality: unspecified Back pain location: low back pain Chronicity: acute Sciatica presence: unspecified whether sciatica present Qualified Code(s): M54.50 - Low back pain, unspecified
[2023-11-13] MEDS ORDERED: bisacodyL 10 MG SUPP PR PRN (17:22)
== END 2023-11-13 16:51 | disposition home health service (06) | DRG 948 ==
LOC: ED 14:24 → EDINP 17:25 → 3N 19:49